=== PATIENT | female | born 1940 | race Caucasian/White ===

== ENCOUNTER → 2023-07-30 14:48 | Outpatient (REF) | payer MEDICARE, SELFPAY ==
[2023-07-30 16:10] LABS: Blood Urea Nitrogen 42 mg/dl (7-17); Calcium 9.4 mg/dl (8.4-10.2); Carbon Dioxide 26 mmol/L (22-30); Chloride 99 mmol/L (98-107); Glomerular Filtration Rate 39.2; Glucose 91 mg/dl (70-99); Potassium 3.9 mmol/L (3.5-5.1); Sodium 137 mmol/L (135-145)
== END ==
LOC: OLAB 14:48
PROVIDERS: FAMILY PHYSICIAN Family Medicine
DX: N17.9 Acute kidney failure, unspecified (principal)
CPT/HCPCS: 80048

== ENCOUNTER 2023-08-26 08:31 | Outpatient (RCR) | payer MEDICARE, SELFPAY | END 2023-08-26 23:59 | disposition home or self-care (01) | LOC: RPT 08:31 | PROVIDERS: ATTENDING PHYSICIAN Family Medicine | DX: L03.116 Cellulitis of left lower limb (principal); I50.23 Acute on chronic systolic (congestive) heart failure; Z73.6 Limitation of activities due to disability; I89.0 Lymphedema, not elsewhere classified | CPT/HCPCS: 97163; 97535 ==

== ENCOUNTER → 2023-09-13 15:19 | Outpatient (REF) | payer MEDICARE, SELFPAY | LOC: WOUND 15:19 | PROVIDERS: ATTENDING PHYSICIAN Surgery Plastic and Reconstructive Surgery; REFERRING PHYSICIAN Family Medicine | DX: I87.2 Venous insufficiency (chronic) (peripheral) (principal); L97.222 Non-pressure chronic ulcer of left calf with fat layer exposed; Z79.01 Long term (current) use of anticoagulants; I48.20 Chronic atrial fibrillation, unspecified; I73.9 Peripheral vascular disease, unspecified; Z95.0 Presence of cardiac pacemaker; I48.11 Longstanding persistent atrial fibrillation; I44.2 Atrioventricular block, complete; Z86.73 Personal history of transient ischemic attack (TIA), and cerebral infarction without residual deficits; I50.32 Chronic diastolic (congestive) heart failure; I63.419 Cerebral infarction due to embolism of unspecified middle cerebral artery; I11.0 Hypertensive heart disease with heart failure | CPT/HCPCS: 29580; 99213 ==

== ENCOUNTER → 2023-10-17 14:52 | Outpatient (REF) | payer MEDICARE, SELFPAY | LOC: WOUND 14:52 | PROVIDERS: ATTENDING PHYSICIAN Surgery; REFERRING PHYSICIAN Family Medicine | DX: L97.222 Non-pressure chronic ulcer of left calf with fat layer exposed (principal); I48.20 Chronic atrial fibrillation, unspecified; I87.2 Venous insufficiency (chronic) (peripheral); I73.9 Peripheral vascular disease, unspecified; Z95.0 Presence of cardiac pacemaker; I10 Essential (primary) hypertension; I48.11 Longstanding persistent atrial fibrillation; I44.2 Atrioventricular block, complete; I50.32 Chronic diastolic (congestive) heart failure; I63.419 Cerebral infarction due to embolism of unspecified middle cerebral artery; Z79.01 Long term (current) use of anticoagulants; Z86.73 Personal history of transient ischemic attack (TIA), and cerebral infarction without residual deficits | CPT/HCPCS: 11042 ==

== ENCOUNTER → 2023-10-31 09:52 | Outpatient (REF) | payer MEDICARE, SELFPAY | LOC: WOUND 09:52 | PROVIDERS: ATTENDING PHYSICIAN Surgery; FAMILY PHYSICIAN Family Medicine | DX: L97.222 Non-pressure chronic ulcer of left calf with fat layer exposed (principal); I48.20 Chronic atrial fibrillation, unspecified; I87.2 Venous insufficiency (chronic) (peripheral); I73.9 Peripheral vascular disease, unspecified; Z95.0 Presence of cardiac pacemaker; I48.11 Longstanding persistent atrial fibrillation; I44.2 Atrioventricular block, complete; Z86.73 Personal history of transient ischemic attack (TIA), and cerebral infarction without residual deficits; I50.32 Chronic diastolic (congestive) heart failure; Z79.01 Long term (current) use of anticoagulants; I11.0 Hypertensive heart disease with heart failure | CPT/HCPCS: 99212 ==

== ENCOUNTER → 2023-11-04 09:21 | Outpatient (REF) | payer MEDICARE, SELFPAY ==
[2023-11-04 11:15] LABS: Blood Urea Nitrogen 27 mg/dl (7-17); Calcium 9.5 mg/dl (8.4-10.2); Carbon Dioxide 27 mmol/L (22-30); Chloride 98 mmol/L (98-107); Glucose 129 mg/dl (70-99); Potassium 4.3 mmol/L (3.5-5.1); Sodium 135 mmol/L (135-145)
== END ==
LOC: REG 09:21
PROVIDERS: ATTENDING PHYSICIAN Nurse Practitioner; FAMILY PHYSICIAN Family Medicine
DX: I50.22 Chronic systolic (congestive) heart failure (principal)
CPT/HCPCS: 36415; 80048

== ENCOUNTER → 2023-12-16 07:42 | Outpatient (REF) | payer MEDICARE, SELFPAY ==
[2023-12-16 09:19] LABS: % Basophils 1.2 % (0-2); % Eosinophils 3.2 % (0-6); % Immature Granulocytes 0.4 % (0-0.5); % Lymphocytes 14.7 % (20.5-51.1); % Monocytes 10.8 % (1.7-9.3); % Neutrophils 69.7 % (42.2-75.2); Absolute Basophils 0.1 10^3/uL (0-0.2); Absolute Eosinophils 0.2 10^3/uL (0-0.7); Absolute Lymphocytes 0.7 10^3/uL (1.2-3.4); Absolute Monocytes 0.5 10^3/uL (0.1-0.6); Absolute Neutrophils 3.5 10^3/uL (1.4-6.5); Hemoglobin 10.9 g/dL (12.0-16.0); Mean Corp Hgb Conc. 31.1 g/dL (33.0-37.0); Mean Corpuscular Hgb 31.3 pg (27.0-31.0); Mean Corpuscular Volume 100.6 fL (81.0-99.0); Mean Platelet Volume 10.1 fL (7.4-10.4); Nucleated Red Blood Cells % 0 %; Platelet Count 208 10^3/uL (130-400); Red Blood Cell Count 3.48 10^6/uL (4.20-5.40); Red Cell Dist. Width 15.7 % (11.5-14.5)
[2023-12-16 10:54] LABS: Glycohemoglobin (HgbA1c) 5.9 % (4.0-5.6)
[2023-12-16 12:45] LABS: Free T4 1.11 ng/dl (0.78-2.19)
[2023-12-16 13:34] LABS: Folate > 20.0 ng/ml (2.76-20); Vitamin B12 673 pg/ml (239-931)
[2023-12-16 15:19] LABS: ALT (SGPT) 20 U/L (0-35); AST (SGOT) 29 U/L (14-36); Albumin 4.5 g/dl (3.5-5.0); Alkaline Phosphatase 49 U/L (38-126); Blood Urea Nitrogen 36 mg/dl (7-17); Calcium 10.2 mg/dl (8.4-10.2); Carbon Dioxide 23 mmol/L (22-30); Chloride 105 mmol/L (98-107); Glucose 89 mg/dl (70-99); HDL Cholesterol 79 mg/dl; Iron 125 ug/dl (37-170); LDL Cholesterol, Calculated 60 mg/dl; Sodium 137 mmol/L (135-145); Total Bilirubin 1.7 mg/dl (0.2-1.3); Total Cholesterol 155 mg/dl (50-199); Total Protein 7.4 g/dl (6.3-8.2); Triglyceride 81 mg/dl (10-149); Very Low Density Lipoprotein 16 mg/dl (0-30); eGFR 49.86
[2023-12-16 15:29] LABS: Percent Saturation 32 % (20-50); Total Iron Binding Capacity 385 ug/dl (265-497)
[2023-12-16 15:38] LABS: Potassium 4.6 mmol/L (3.5-5.1)
== END ==
LOC: REG 07:42
PROVIDERS: ATTENDING PHYSICIAN Family Medicine; FAMILY PHYSICIAN Internal Medicine Cardiovascular Disease
DX: R73.03 Prediabetes (principal); E78.00 Pure hypercholesterolemia, unspecified; E53.8 Deficiency of other specified B group vitamins; D53.9 Nutritional anemia, unspecified; D50.9 Iron deficiency anemia, unspecified; E55.9 Vitamin D deficiency, unspecified; E03.9 Hypothyroidism, unspecified
CPT/HCPCS: 36415; 80053; 80061; 82306; 82607; 82728; 82746; 83036; 83540; 83550; 84439; 84443; 85025

== ENCOUNTER → 2024-01-02 07:39 | Outpatient (REF) | payer MEDICARE, SELFPAY ==
[2024-01-02 10:02] LABS: Blood Urea Nitrogen 40 mg/dl (7-17); Calcium 9.5 mg/dl (8.4-10.2); Carbon Dioxide 25 mmol/L (22-30); Chloride 102 mmol/L (98-107); Glucose 81 mg/dl (70-99); Sodium 136 mmol/L (135-145); eGFR 49.86
== END ==
LOC: REG 07:39
PROVIDERS: ATTENDING PHYSICIAN Internal Medicine Cardiovascular Disease; FAMILY PHYSICIAN Family Medicine
DX: I50.20 Unspecified systolic (congestive) heart failure (principal)
CPT/HCPCS: 36415; 80048

== ENCOUNTER → 2024-01-19 09:20 | Outpatient (REF) | payer MEDICARE, SELFPAY ==
[2024-01-19 10:42] LABS: % Basophils 0.6 % (0-2); % Eosinophils 1.9 % (0-6); % Immature Granulocytes 0.2 % (0-0.5); % Lymphocytes 12.4 % (20.5-51.1); % Monocytes 13.2 % (1.7-9.3); % Neutrophils 71.7 % (42.2-75.2); Absolute Eosinophils 0.1 10^3/uL (0-0.7); Absolute Lymphocytes 0.7 10^3/uL (1.2-3.4); Absolute Monocytes 0.7 10^3/uL (0.1-0.6); Absolute Neutrophils 3.9 10^3/uL (1.4-6.5); Hemoglobin 10.6 g/dL (12.0-16.0); Mean Corp Hgb Conc. 32.1 g/dL (33.0-37.0); Mean Corpuscular Hgb 33.2 pg (27.0-31.0); Mean Corpuscular Volume 103.4 fL (81.0-99.0); Mean Platelet Volume 9.9 fL (7.4-10.4); Nucleated Red Blood Cells % 0 %; Platelet Count 184 10^3/uL (130-400); Red Blood Cell Count 3.19 10^6/uL (4.20-5.40); Red Cell Dist. Width 14.6 % (11.5-14.5); White Blood Cell Count 5.4 10^3/uL (4.8-10.8)
[2024-01-19 11:46] LABS: ALT (SGPT) 20 U/L (0-35); AST (SGOT) 35 U/L (14-36); Albumin 4.1 g/dl (3.5-5.0); Alkaline Phosphatase 42 U/L (38-126); Blood Urea Nitrogen 40 mg/dl (7-17); Calcium 9.6 mg/dl (8.4-10.2); Carbon Dioxide 28 mmol/L (22-30); Chloride 99 mmol/L (98-107); Glucose 75 mg/dl (70-99); Potassium 4.1 mmol/L (3.5-5.1); Sodium 137 mmol/L (135-145); Total Protein 6.7 g/dl (6.3-8.2)
== END ==
LOC: REG 09:20
PROVIDERS: ATTENDING PHYSICIAN Internal Medicine Cardiovascular Disease; FAMILY PHYSICIAN Family Medicine
DX: I50.20 Unspecified systolic (congestive) heart failure (principal); Z95.0 Presence of cardiac pacemaker; I48.0 Paroxysmal atrial fibrillation; I44.2 Atrioventricular block, complete
CPT/HCPCS: 36415; 80053; 85025

== ENCOUNTER 2024-02-10 05:58 | Day surgery (SDC) | payer MEDICARE, SELFPAY ==
[2024-01-31 10:23] VITALS: BMI 24.9
[2024-01-31 10:44] LABS: % Basophils 0.9 % (0-2); % Eosinophils 2.5 % (0-6); % Immature Granulocytes 0.2 % (0-0.5); % Lymphocytes 12.6 % (20.5-51.1); % Monocytes 14.5 % (1.7-9.3); % Neutrophils 69.3 % (42.2-75.2); Absolute Basophils 0.1 10^3/uL (0-0.2); Absolute Eosinophils 0.1 10^3/uL (0-0.7); Absolute Lymphocytes 0.7 10^3/uL (1.2-3.4); Absolute Monocytes 0.8 10^3/uL (0.1-0.6); Absolute Neutrophils 3.7 10^3/uL (1.4-6.5); Hematocrit 31.7 % (37.0-47.0); Hemoglobin 10.5 g/dL (12.0-16.0); Mean Corp Hgb Conc. 33.1 g/dL (33.0-37.0); Mean Corpuscular Hgb 32.7 pg (27.0-31.0); Mean Corpuscular Volume 98.8 fL (81.0-99.0); Mean Platelet Volume 9.4 fL (7.4-10.4); Nucleated Red Blood Cells % 0 %; Platelet Count 211 10^3/uL (130-400); Red Blood Cell Count 3.21 10^6/uL (4.20-5.40); White Blood Cell Count 5.3 10^3/uL (4.8-10.8)
[2024-01-31 10:55] LABS: ALT (SGPT) 21 U/L (0-35); AST (SGOT) 29 U/L (14-36); Albumin 4.3 g/dl (3.5-5.0); Alkaline Phosphatase 65 U/L (38-126); Blood Urea Nitrogen 43 mg/dl (7-17); Calcium 9.4 mg/dl (8.4-10.2); Carbon Dioxide 29 mmol/L (22-30); Chloride 101 mmol/L (98-107); Estimated Creatinine Clearance 28 ml/min; Glucose 81 mg/dl (70-99); Potassium 4.1 mmol/L (3.5-5.1); Sodium 139 mmol/L (135-145); Total Bilirubin 0.7 mg/dl (0.2-1.3); Total Protein 7.4 g/dl (6.3-8.2); eGFR 49.86
[2024-02-10] VITALS (10 sets, daily range): BP systolic 101–134; BP diastolic 57–71
--- NOTE | 2024-02-10 10:34 | ITS.CL.PACE ---
Addendum entered and electronically signed by Yvan Orozco MD 02/10/24 11:17:
Date of Procedure: February 10, 2024.
Original Note:
Cement Sack Breaker - Pacemaker Implant
Pacemaker Implant
Procedure Report:
Date of Procedure: [ ].
Procedures: Dual chamber pacemaker generator change. Pacemaker pulse generator explantation and pacemaker pulse generator implantation.
Indication: Pacemaker at [facility] from natural battery depletion. 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 Known paroxysmal atrial fibrillation.
Performing physician: Yvan Orozco MD, [facility].
Implant: Pacemaker Pulse Generator: Medtronic; Model# [id number]; Serial# [id number].
Explanted Pulse Generator (implanted August 03, 2016: Medtronic; Model# [id number]; Serial# [id number].
Retained Leads (Implanted 06/27/2007 in [place]):
RA : Medtronic: Model# 5076; Serial# [id number].
RV: Medtronic; Model# 5076; Serial# [id number].
Technique: A time out was performed. The procedure site was identified. The patient was anesthetized by the anesthesia service. Preoperative cefazolin was administered prior to skin incision. The patient was prepped and draped in the usual fashion.
Local anesthetic was applied to the left prepectoral subcutaneous tissue. A 3 inch incision was made over the pulse generator. The capsule was entered with Bovie cautery. The old pacemaker pulse generator was explanted. Gentle PlasmaBlade cautery
was applied to free the leads. The leads were appropriately attached to the new device. The pocket was irrigated with antibiotic solution. Hemostasis was excellent. The device and leads were placed in the pocket. The incision was closed in three
layers with absorbable suture. A Medtronic, Tyrx, Absorbable antibiotic envelope was used. Steri-strips and medical adhesive to close the skin was applied. The estimated blood loss was less than 2 mL. There were no complications. No fluoroscopy.
Lead Analysis:
RA lead: Sinus P: 1.6 mV; Threshold: 0.75 V @ 0.4 ms; Impedance: 323 ohms.
RV lead: R: n/a; Threshold: 1.25 V @ 0.4 ms; Impedance: 380 ohms.
Final Programming: DDIR 70 - 130 bpm.
Conclusion: Uncomplicated Medtronic pacemaker change. The pacemaker system is MRI conditional.
Recommendation: Routine post pacemaker care.
cc: Yanet Carmichael MD.
== END 2024-02-10 11:35 | disposition home or self-care (01) ==
LOC: CATH 05:58
PROVIDERS: ATTENDING PHYSICIAN Internal Medicine Cardiovascular Disease; FAMILY PHYSICIAN Family Medicine
DX: Z45.010 Encounter for checking and testing of cardiac pacemaker pulse generator [battery] (principal); I44.2 Atrioventricular block, complete; I48.0 Paroxysmal atrial fibrillation; I11.0 Hypertensive heart disease with heart failure; I50.22 Chronic systolic (congestive) heart failure; E78.5 Hyperlipidemia, unspecified; E03.9 Hypothyroidism, unspecified; Z86.73 Personal history of transient ischemic attack (TIA), and cerebral infarction without residual deficits; R73.03 Prediabetes; I34.0 Nonrheumatic mitral (valve) insufficiency; I27.20 Pulmonary hypertension, unspecified; Z87.891 Personal history of nicotine dependence; Z79.01 Long term (current) use of anticoagulants
CPT/HCPCS: 33228; 36415; 80053; 85025; C1785

== ENCOUNTER 2024-03-08 16:52 | Emergency (ER) | payer MEDICARE, SELFPAY ==
[2024-03-08 16:54] VITALS: BP 117/68
[2024-03-08 17:06] LABS: % Basophils 0.9 % (0-2); % Eosinophils 2.1 % (0-6); % Immature Granulocytes 0.5 % (0-0.5); % Lymphocytes 16.6 % (20.5-51.1); % Monocytes 15.9 % (1.7-9.3); Absolute Eosinophils 0.1 10^3/uL (0-0.7); Absolute Lymphocytes 0.7 10^3/uL (1.2-3.4); Absolute Monocytes 0.7 10^3/uL (0.1-0.6); Absolute Neutrophils 2.8 10^3/uL (1.4-6.5); Hematocrit 27.2 % (37.0-47.0); Hemoglobin 9.6 g/dL (12.0-16.0); Mean Corp Hgb Conc. 35.3 g/dL (33.0-37.0); Mean Corpuscular Hgb 32.7 pg (27.0-31.0); Mean Corpuscular Volume 92.5 fL (81.0-99.0); Mean Platelet Volume 9.6 fL (7.4-10.4); Nucleated Red Blood Cells % 0 %; Platelet Count 175 10^3/uL (130-400); Red Blood Cell Count 2.94 10^6/uL (4.20-5.40); Red Cell Dist. Width 14.1 % (11.5-14.5); White Blood Cell Count 4.3 10^3/uL (4.8-10.8)
[2024-03-08 17:29] LABS: ALT (SGPT) 20 U/L (0-35); AST (SGOT) 28 U/L (14-36); Albumin 4.3 g/dl (3.5-5.0); Alkaline Phosphatase 42 U/L (38-126); Blood Urea Nitrogen 60 mg/dl (7-17); Calcium 9.7 mg/dl (8.4-10.2); Carbon Dioxide 22 mmol/L (22-30); Chloride 99 mmol/L (98-107); Glucose 95 mg/dl (70-99); Potassium 4.2 mmol/L (3.5-5.1); Sodium 132 mmol/L (135-145); Total Bilirubin 1.2 mg/dl (0.2-1.3)
[2024-03-08 17:30] LABS: Lipase 47 U/L (23-300)
--- NOTE | 2024-03-08 18:09 | ED.GENMED ---
History of Present Illness
General
Chief Complaint: Abdominal Symptoms
Source: patient and family (Daughter)
Exam Limitations: none
Time Seen by Provider: 03/08/24 17:54
History of Present Illness
History of Present Illness:
This is a 83 year old female that is brought in by family with c/o diarrhea and constipation. Patient states that for the past 3 days she has gone between constipation and diarrhea. States that she has abd discomfort. Daughter states that she has
kind of been out of it today. States that they called the PCP office and tried to get her to talk with the Nurse their and she wasn't really talking with them. Patient denies any fever, chill, chest pain, SOB, nausea, vomiting, headache, dizziness,
urinary burning.
Past History
Past History
ED Past Medical History: Arrthythmia (Atrial fibrillation), CAD, CHF, CVA (2006, 2016, 2019), HTN, Hypercholesterolemia, [place], Hypothyroidism, Psychiatric (Depression), Other (Right kidney infarction, vitamin D deficiency, osteopenia, Hemorrhoids,
Colitis, Anemia, ) and Other (Vertigo, iron deficiency anemia); Negative NIDDM (Prediabetes)
ED Past Surgical History: Cardiac (Pacemaker, CABG), Gynecological ( Hysterectomy and Oophorectomy one side), Orthopedic (left hip fracture with repair) and Other (hernia repair)
Social History
Tobacco: Former smoker
Alcohol: Daily
Drug: None
Personal:
Living: with family
Employment: Retired
Family History
Family History: Other (Reviewed and Noncontributory)
Review of Systems
Review of Systems
All Other Systems: ROS reviewed and negative except as documented in HPI and ROS
Constitutional: Reports no symptoms; Denies fever or chills
EENT: Reports no symptoms
Respiratory: Reports no symptoms; Denies cough or trouble breathing
Cardiac: Reports no symptoms; Denies chest pain
ABD/GI: Reports abdominal pain, diarrhea and constipated; Denies nausea or vomiting
: Reports no symptoms; Denies dysuria, frequency or urgency
Musculoskeletal: Reports no symptoms
Skin: Reports no symptoms
Neurological: Reports no symptoms; Denies dizzy or headache
Psychiatric: Reports no symptoms
Phy Exam
General Physical Exam
General Presentation: no apparent distress
General age: appears stated age
General Skin: warm and dry
General Habitus: debilitated and elderly
General Mental: alert
General Hydration: dry mucous membranes
ENT Exam
ENT Exam: TM's normal, pharynx normal and neck supple
Eye Exam
Eye Exam: EOMI
Cardiovascular Exam
Cardiovascular Exam: no edema, normal peripheral pulses and pacemaker
Pulmonary Exam
Pulmonary Exam: lungs clear, no respiratory distress, no rales, chest non tender, no crackles, no rhonchi, no wheezing and no cough
Gastrointestinal Exam
Gastrointestinal Exam: normal bowel sounds, non tender, soft, no organomegaly, no pulsatile mass and non distended
Musculoskeletal Exam
Musculoskeletal Exam: full ROM and edema (Slight nonpitting edema of the lower legs)
Skin Exam
Skin Exam: normal color, warm/dry, no petechia and redness (Slight on the left lower leg Patient states that this is normal. )
Psychiatric Exam
Psychiatric Exam: normal mood/affect
Course
Orders/Labs/Results
Orders:
Orders
03/08/24 16:59
Complete Blood Count/With Diff Urgent
Comprehensive Metabolic Panel Urgent
Lipase Urgent
03/08/24 18:08
0.9% Sodium Chloride 1000 ml [Nss] 1,000 ml IV BOLUS
03/08/24 18:12
Electrocardiogram (*1) Urgent
Reason for Study: Fatigue / Weakness
EKG- Treatment ONCE
03/08/24 18:20
CT Abd/pel (oral only)-DH Only Urgent
Comment:
Reason For Exam: ABd pain, diarrhea, constipation
Iohexol [Omnipaque] See Protocol PO NOW STA
03/08/24 18:44
Troponin I Urgent
03/08/24 19:18
Urinalysis Reflex To Culture Urgent
Date Specimen was Collected: 03/08/24
Time Specimen was Collected: 19:17
Urine Microscopic Reflex Cult Urgent
Urine Culture Urgent
KHUSHBOO Source: U
Specimen Description:
Date Specimen was Collected: 03/08/24
Time Specimen was Collected: 19:17
Abnormal Lab Results
03/08/24 03/08/24 03/08/24
16:59 18:44 19:18
WBC 4.3 L 10^3/uL
(4.8-10.8)
RBC 2.94 L 10^6/uL
(4.20-5.40)
Hgb 9.6 L g/dL
(12.0-16.0)
Hct 27.2 L %
(37.0-47.0)
MCH 32.7 H pg
(27.0-31.0)
Absolute Lymphs (auto) 0.7 L 10^3/uL
(1.2-3.4)
Absolute Monos (auto) 0.7 H 10^3/uL
(0.1-0.6)
Lymphocytes % 16.6 L %
(20.5-51.1)
Monocytes % 15.9 H %
(1.7-9.3)
Sodium 132 L mmol/L
(135-145)
BUN 60 H mg/dl
(7-17)
Creatinine 1.6 H mg/dL
(0.6-1.0)
Troponin I 0.067 H* ng/ml
Urine Ketones Trace A
(Negative)
Ur Occult Blood Reflex 4+ A
(Negative)
Leukocyte Esterase Rfl 1+ A
(Negative)
Urine RBC >100 A /HPF
(0-2)
Urine Bacteria (Reflex) Few A
(Negative)
Urine Albumin (Reflex) 1+ A
(Neg - Trace)
03/08/24 16:59
03/08/24 16:59
WBC slightly low. RBC low, H/H low. Anemia, Sodium slightly low. Dehydration. Chronic renal insufficiency. Urine negative for infection. troponin 0.067 (chronically runs high)
Vital Signs
Initial and Last Documented VS:
Initial Vital Signs
Temp Pulse Resp BP Pulse Ox
98.3 F 71 16 117/68 96
03/08/24 16:54 03/08/24 16:54 03/08/24 16:54 03/08/24 16:54 03/08/24 16:54
Last Documented Vital Signs
Temp Pulse Resp BP Pulse Ox
98.3 F 70 18 115/59 96
03/08/24 16:54 03/08/24 20:00 03/08/24 20:00 03/08/24 19:00 03/08/24 16:54
MDM/Problems Addressed
Differential Diagnosis Includes:
UTi, Colitis, Dehydrtion
MDM/Problems Addressed:
this is a 83 year old female that comes in with c/o constipation and diarrhea. States that this has been going on for the past 3 days. Daughter states that mom is just not herself today.
Will check labs, give IV fluids. Get CT to r/o a colitis.
Back into see patient. Family states that patient is more herself after the fluids. Reviewed labs and CT scan. Urine is negative for infection. Troponin is elevated but this is consistent with prior Troponin. Patient had no chest pain. Got patient
OOB and she is able to ambulate with her cane. Will discharge home.
Chronic conditions affecting care:
History of Colitis
Acute Exacerbation and/or Progression of Chronic Illness:
Colitis
*Radiology
Radiology exam reviewed: radiology read reviewed (CT-There is bowel wall thickening and unopacified loops of duodenum and proximal jejunum consistent with small bowel enteritis. There is moderate bilateral perinephric edema without associated
hydronephrosis. Pyeloneprhtiis is included in the differential diagnosis and correlation with patient's ), all reviewed NAD by ED Provider (CT cont- urinalysis is recommended. There is large volume of feces in the rectum suggesting possible fecal
impaction. Diverticuli are present in the colon with no CT evidence of diverticulitis. There is a 10mm nonobstructing calculus at the right renal pelvis. There is a 1cm nonobstructing) and other (CT cont- calculus at the right renal pelvis. There is
a 7cm hiatal hernia. )
*Pulse Oximetry
Patient hypoxic: no
*EKG
Interpreted by ED Provider?: Yes
Heart Rate: 71
Rate: normal
Rhythm: av sequential
[place]: left axis deviation
*Senior Quality Technician Interpretation
Rate: Senior Quality Technician- N/A
*Critical Care Note
Total Time (30-74mins, 75-104mins- exclusive of procedures): Not Applicable
ED Attending Note
-
Portions of this chart may have been created with voice recognition software.� Occasional wrong word or��sound alike� substitutions may have occurred due to the inherent limitations of voice recognition software.
Discharge Plan
Departure
Patient Disposition: Home (Routine Discharge)
Date of Disposition: 03/08/24
Time of Disposition: 22:21
Patient with high blood pressure during this ER visit?: No
Condition: Good
Covid-19: Not Applicable
Discharge Problem:
Acute dehydration, Enteritis
Instructions: Dehydration, Adult (DC)
Prescriptions:
No Action
atorvastatin 40 MG tablet
40 mg PO HS
carvedilol 3.125 MG tablet
3.125 mg PO BID
levothyroxine 75 mcg Tablet
75 mcg PO DAILY
furosemide 40 mg tablet
40 mg PO BID
cholecalciferol (vitamin D3) [Vitamin D3] 25 mcg (1,000 unit) Capsule
25 mcg PO DAILY
ferrous sulfate 325 mg (65 mg iron) Tablet
325 mg PO DAILY
mecobalamin (vitamin B12) [B12 Active] 1,000 mcg Tablet,Chewable
1,000 mcg PO DAILY
dabigatran etexilate [Pradaxa] 150 mg capsule
150 mg PO BID
trazodone 50 mg Tablet
50 mg PO HS PRN (Reason: sleep)
ondansetron HCl 4 mg Tablet
4 mg PO DAILYPRN PRN (Reason: nausea/vomiting)
acetaminophen [Tylenol Extra Strength] 500 mg Tablet
1,000 mg PO Q6H PRN (Reason: mild pain)
docusate sodium 100 mg capsule
100 mg PO BIDPRN PRN (Reason: constipation)
Referrals:
Yanet Carmichael MD [Family Provider] - Follow up in 2-3 days
Activity Restrictions/Additional Instructions:
As discussed, your blood work shows you are anemia and very dehydrated. Please make sure your drink your Fluids that you are allowed. Your Urine is negative for infection but there is blood in the urine due to the Renal calculus in the kidneys. Your
CT does show some enteritis which is a viral illness and this will go away on its own. Please follow up with the family doctor for recheck. IF YOU HAVE FEVER, VOMITING, OR YOU HAVE ANY OTHER CONCERNS PLEASE RETURN TO THE EMERGENCY ROOM.
Interventions
Interventions:
*Risk Screen - Suicide Last Done: 03/08/24 18:04
*General Assessment Last Done: 03/08/24 16:54
*Neglect/Abuse Screening Last Done: 03/08/24 18:04
ED- Fall Risk Assessment Last Done: 03/08/24 18:51
XT-Aluakn-Lxwsorrnxz Assessment Last Done: 03/08/24 18:51
Discharge Date and Time
Print Language: BURMESE
[2024-03-08] MEDS: NSS 1000 IV (18:44)
[2024-03-08] MEDS: OMNIPAQUE 50 ML PO (18:45)
[2024-03-08 19:00] VITALS: BP 115/59
[2024-03-08 19:23] LABS: Troponin I 0.067 ng/ml
[2024-03-08 19:26] LABS: Urine Albumin 1+ (Neg - Trace); Urine Bilirubin Negative (Negative); Urine Character Clear (Clear); Urine Glucose Negative (Negative); Urine Ketone Trace (Negative); Urine Leukocyte 1+ (Negative); Urine Nitrite Negative (Negative); Urine Occult Blood 4+ (Negative); Urine Specific Gravity 1.015 (<1.030); Urine Urobilinogen Negative (Neg - 1+)
[2024-03-08 19:27] LABS: Urine Color Pink
[2024-03-08 19:33] LABS: Urine Red Blood Cell >100 /HPF (0-2)
[2024-03-08 19:34] LABS: Urine Bacteria Few (Negative)
[2024-03-08 22:54] VITALS: BP 112/62
== END 2024-03-08 22:56 | disposition home or self-care (01) ==
LOC: EMR 16:52
PROVIDERS: Clinical Nurse Specialist Family Health; EMERGENCY PHYSICIAN Emergency Medicine; FAMILY PHYSICIAN Family Medicine
DX: E86.0 Dehydration (principal); K52.9 Noninfective gastroenteritis and colitis, unspecified; K59.00 Constipation, unspecified; I48.91 Unspecified atrial fibrillation; I25.10 Atherosclerotic heart disease of native coronary artery without angina pectoris; I13.0 Hypertensive heart and chronic kidney disease with heart failure and stage 1 through stage 4 chronic kidney disease, or unspecified chronic kidney disease; I50.9 Heart failure, unspecified; E11.22 Type 2 diabetes mellitus with diabetic chronic kidney disease; N18.9 Chronic kidney disease, unspecified; E03.9 Hypothyroidism, unspecified; E78.00 Pure hypercholesterolemia, unspecified; F32.A Depression, unspecified; I25.2 Old myocardial infarction; E55.9 Vitamin D deficiency, unspecified; D64.9 Anemia, unspecified; M85.80 Other specified disorders of bone density and structure, unspecified site; Z86.73 Personal history of transient ischemic attack (TIA), and cerebral infarction without residual deficits; Z87.19 Personal history of other diseases of the digestive system; Z87.891 Personal history of nicotine dependence; Z90.710 Acquired absence of both cervix and uterus; Z90.721 Acquired absence of ovaries, unilateral; Z95.0 Presence of cardiac pacemaker; Z95.1 Presence of aortocoronary bypass graft
CPT/HCPCS: 99284; 96361; 74176; 80053; 81003; 81015; 83690; 84484; 85025; 87086; 93005

== ENCOUNTER 2024-08-02 23:35 | Emergency (ER) | payer MEDICARE, SELFPAY ==
[2024-08-02 23:37] VITALS: BP 114/68
[2024-08-02 23:42] VITALS: BMI 24.3
[2024-08-03 00:01] VITALS: BP 90/54
[2024-08-03 00:49] LABS: Urine Albumin 2+ (Neg - Trace); Urine Bilirubin 1+ (Negative); Urine Character Cloudy (Clear); Urine Color Amber; Urine Glucose Negative (Negative); Urine Ketone Trace (Negative); Urine Leukocyte 1+ (Negative); Urine Nitrite Positive (Negative); Urine Occult Blood 4+ (Negative); Urine Urobilinogen Negative (Neg - 1+)
[2024-08-03 00:56] VITALS: BP 103/56
[2024-08-03 01:07] VITALS: BP 96/53
--- NOTE | 2024-08-03 01:20 | ED.GENMED ---
History of Present Illness
General
Chief Complaint: Fall
Source: patient, family and ambulance crew
Exam Limitations: none
Time Seen by Provider: 08/02/24 23:42
Nursing documentation reviewed up to this point in time: agreed with
History of Present Illness
History of Present Illness:
Pleasant 83-year-old female that presents after a fall. She lives with her at home. Patient admits to drinking white wine this evening. Patient does take Pradaxa. Patient was watching football, and her went to bed. He awakened a
short while later to the sound of her calling his name. Patient was found lying on the hardwood floor. She denied any pain. called 911. Upon arrival, patient is awake, alert, and oriented x 3. Patient does have a history of a subdural
hematoma for which she sustained last year. Patient denies headache.
Past History
Past History
ED Past Medical History: Arrthythmia (Atrial fibrillation), CAD, CHF, CVA (2006, 2016, 2019), HTN, Hypercholesterolemia, [place], Hypothyroidism, Psychiatric (Depression), Other (Right kidney infarction, vitamin D deficiency, osteopenia, Hemorrhoids,
Colitis, Anemia, ) and Other (Vertigo, iron deficiency anemia); Negative NIDDM (Prediabetes)
ED Past Surgical History: Cardiac (Pacemaker, CABG), Gynecological ( Hysterectomy and Oophorectomy one side), Orthopedic (left hip fracture with repair) and Other (hernia repair)
Social History
Tobacco: Former smoker
Alcohol: Daily
Drug: None
Personal:
Living: with family
Employment: Retired
Family History
Family History: Other (Reviewed and Noncontributory)
Review of Systems
Review of Systems
All Other Systems: ROS reviewed and negative except as documented in HPI and ROS
Constitutional: Reports no symptoms
EENT: Reports no symptoms
Respiratory: Reports no symptoms
Cardiac: Reports no symptoms
ABD/GI: Reports no symptoms
: Reports no symptoms
Musculoskeletal: Reports no symptoms
Skin: Reports no symptoms
Neurological: Reports no symptoms
Endocrine: Reports no symptoms
Hematologic/Lymphatic: Reports no symptoms
Psychiatric: Reports anxiety
Phy Exam
General Physical Exam
General Presentation: well appearing and no apparent distress
General Skin: warm and dry
General Habitus: normal
General Mental: alert
General Hydration: appears well hydrated
ENT Exam
ENT Exam: EOMI, pharynx normal, neck supple and normocephalic
Eye Exam
Eye Exam: PERRL, cornea clear and conjunctiva normal
Cardiovascular Exam
Cardiovascular Exam: irregularly irregular
Pulmonary Exam
Pulmonary Exam: lungs clear, no respiratory distress, no rales, no crackles, no rhonchi, no stridor, no wheezing and no cough
Gastrointestinal Exam
Gastrointestinal Exam: normal bowel sounds, non tender, soft, no organomegaly, no pulsatile mass and non distended
Neurological Exam
Neurological Exam: alert, oriented x3, no motor deficits and speech normal
Musculoskeletal Exam
Musculoskeletal Exam: full ROM and no edema
Skin Exam
Skin Exam: normal color, warm/dry, no rash and no petechia
Psychiatric Exam
Psychiatric Exam: normal mood/affect
Course
Orders/Labs/Results
Orders:
Orders
08/03/24 00:30
Urinalysis Reflex To Culture Urgent
Date Specimen was Collected: 08/03/24
Time Specimen was Collected: 00:13
Urine Microscopic Reflex Cult Urgent
Urine Culture Urgent
KHUSHBOO Source: U
Specimen Description:
Date Specimen was Collected: 08/03/24
Time Specimen was Collected: 00:13
08/03/24 00:35
CT Cervical Spine W/o Iv Contr Urgent
Reason For Exam: fall
CT Head W/o Iv Contrast Urgent
Reason For Exam: fall
08/03/24 01:27
Fosfomycin [Monurol] 3 gm PO ONCE ONE
Abnormal Lab Results
08/03/24
00:30
Urine Ketones Trace A
(Negative)
Ur Occult Blood Reflex 4+ A
(Negative)
Urine Nitrite (Reflex) Positive A
(Negative)
Urine Bilirubin 1+ A
(Negative)
Leukocyte Esterase Rfl 1+ A
(Negative)
Urine RBC >100 A /HPF
(0-2)
Urine Bacteria (Reflex) Many A
(Negative)
Urine Albumin (Reflex) 2+ A
(Neg - Trace)
Vital Signs
Initial and Last Documented VS:
Initial Vital Signs
Temp Pulse Resp BP Pulse Ox
97.4 F 86 20 114/68 97
08/02/24 23:37 08/02/24 23:37 08/02/24 23:37 08/02/24 23:37 08/02/24 23:37
Last Documented Vital Signs
Temp Pulse Resp BP Pulse Ox
97.4 F 70 12 96/53 95
08/02/24 23:37 08/03/24 01:45 08/03/24 01:45 08/03/24 01:07 08/03/24 01:30
*Radiology
Radiology exam reviewed: radiology read reviewed
*Pulse Oximetry
Patient hypoxic: no
*Critical Care Note
Total Time (30-74mins, 75-104mins- exclusive of procedures): Not Applicable
Update Note
Update Note:
Head:
No evidence for intracranial hemorrhage or calvarial fracture.
Redemonstrated extensive encephalomalacic changes in the right MCA territory and in the inferior right cerebellum.
Cervical spine:
No evidence for acute fracture or traumatic malalignment.
Moderate degenerative changes.
Septal thickening in the lung apices.
ED Attending Note
-
Portions of this chart may have been created with voice recognition software.� Occasional wrong word or��sound alike� substitutions may have occurred due to the inherent limitations of voice recognition software.
Discharge Plan
Departure
Patient Disposition: Home (Routine Discharge)
Date of Disposition: 08/03/24
Time of Disposition: 02:26
Patient with high blood pressure during this ER visit?: No
Condition: Fair
Discharge Problem:
Fall, Urinary tract infection
Instructions: Head Injury in Adults (DC), Preventing falls in adults, Urinary tract infection - Discharge instructions
Prescriptions:
No Action
atorvastatin 40 MG tablet
40 mg PO HS
carvedilol 3.125 MG tablet
3.125 mg PO BID
levothyroxine 75 mcg Tablet
75 mcg PO DAILY
furosemide 40 mg tablet
40 mg PO BID
cholecalciferol (vitamin D3) [Vitamin D3] 25 mcg (1,000 unit) Capsule
25 mcg PO DAILY
ferrous sulfate 325 mg (65 mg iron) Tablet
325 mg PO DAILY
mecobalamin (vitamin B12) [B12 Active] 1,000 mcg Tablet,Chewable
1,000 mcg PO DAILY
dabigatran etexilate [Pradaxa] 150 mg capsule
150 mg PO BID
trazodone 50 mg Tablet
50 mg PO HS PRN (Reason: sleep)
ondansetron HCl 4 mg Tablet
4 mg PO DAILYPRN PRN (Reason: nausea/vomiting)
acetaminophen [Tylenol Extra Strength] 500 mg Tablet
1,000 mg PO Q6H PRN (Reason: mild pain)
docusate sodium 100 mg capsule
100 mg PO BIDPRN PRN (Reason: constipation)
levofloxacin 500 mg tablet
500 mg PO DAILY 5 Days Qty: 5 0RF
Referrals:
Yanet Carmichael MD [Family Provider] -
Activity Restrictions/Additional Instructions:
It was a pleasure meeting you and taking part in your care. We hope for your continued healing and wellness.
Please read discharge instructions in their entirety. However, they are for general education and may not describe your exact diagnosis at discharge. Information on your ER visit and medical conditions were discussed with you along with appropriate
follow up information...
If indicated, please take your medications as instructed and indicated on discharge paperwork.
Please schedule a follow up appointment as directed. Call to schedule an appointment
Please return to the emergency department with ANY change in, persisting, or worsening of symptoms. If any of your symptoms do not improve, or persist, or become more severe within 6-12 hours, please return to the emergency department for further
care.
Please return to the emergency department if you develop a headache, neck pain/stiffness, fever greater than 100.4F, chest pain, shortness of breath, persistent nausea, vomiting, slurred speech, difficulty walking, numbness/tingling, weakness, signs
of infection or any other symptoms that are worrisome to you.
If you have any questions or concerns please do not hesitate to call the Hospital at or E-mail me directly at [email or web address]
Interventions
Interventions:
*Risk Screen - Suicide Last Done: 08/03/24 00:10
*General Assessment Last Done: 08/03/24 00:10
*Neglect/Abuse Screening Last Done: 08/03/24 00:10
*ED COVID-19 Vaccine History Last Done: 08/03/24 00:10
ED-Musculoskeletal Assessment Last Done: 08/03/24 00:46
ED- Neurological Assessment Last Done: 08/03/24 00:46
ED-Skin Assessment Last Done: 08/03/24 00:46
Discharge Date and Time
Print Language: ALB[place]
[2024-08-03 01:33] LABS: Urine Amorphous Seen; Urine Mucus Many; Urine Squamous Cell >30 /LPF (Few)
[2024-08-03 01:34] LABS: Urine Bacteria Many (Negative); Urine Red Blood Cell >100 /HPF (0-2)
[2024-08-03 01:46] VITALS: BP 101/49
[2024-08-03] MEDS: MONUROL 3 GM PO (02:09)
[2024-08-03 02:13] VITALS: BP 114/60
== END 2024-08-03 02:49 | disposition home or self-care (01) ==
LOC: EMR 23:35
PROVIDERS: EMERGENCY PHYSICIAN Student in an Organized Health Care Education/Training Program; FAMILY PHYSICIAN Family Medicine
DX: N39.0 Urinary tract infection, site not specified (principal); W19.XXXA Unspecified fall, initial encounter; I48.91 Unspecified atrial fibrillation; I25.10 Atherosclerotic heart disease of native coronary artery without angina pectoris; I11.0 Hypertensive heart disease with heart failure; I50.9 Heart failure, unspecified; I25.2 Old myocardial infarction; E03.9 Hypothyroidism, unspecified; E78.00 Pure hypercholesterolemia, unspecified; F32.A Depression, unspecified; M47.812 Spondylosis without myelopathy or radiculopathy, cervical region; Z86.73 Personal history of transient ischemic attack (TIA), and cerebral infarction without residual deficits; Z87.19 Personal history of other diseases of the digestive system; Z87.891 Personal history of nicotine dependence; Z90.710 Acquired absence of both cervix and uterus; Z90.721 Acquired absence of ovaries, unilateral; Z95.0 Presence of cardiac pacemaker; Z95.1 Presence of aortocoronary bypass graft
CPT/HCPCS: 99284; 70450; 72125; 81003; 81015; 87086

== ENCOUNTER 2024-08-19 14:58 | Emergency (ER) | payer MEDICARE, SELFPAY ==
[2024-08-19 15:06] VITALS: BP 139/79
[2024-08-19 15:31] LABS: % Basophils 0.7 % (0-2); % Eosinophils 1.1 % (0-6); % Immature Granulocytes 0.3 % (0-0.5); % Lymphocytes 9.2 % (20.5-51.1); % Monocytes 12.5 % (1.7-9.3); % Neutrophils 76.2 % (42.2-75.2); Absolute Basophils 0.1 10^3/uL (0-0.2); Absolute Eosinophils 0.1 10^3/uL (0-0.7); Absolute Lymphocytes 0.6 10^3/uL (1.2-3.4); Absolute Monocytes 0.9 10^3/uL (0.1-0.6); Absolute Neutrophils 5.3 10^3/uL (1.4-6.5); Hematocrit 30.6 % (37.0-47.0); Hemoglobin 10.2 g/dL (12.0-16.0); Mean Corp Hgb Conc. 33.3 g/dL (33.0-37.0); Mean Corpuscular Hgb 32.5 pg (27.0-31.0); Mean Corpuscular Volume 97.5 fL (81.0-99.0); Mean Platelet Volume 9.5 fL (7.4-10.4); Nucleated Red Blood Cells % 0 %; Platelet Count 222 10^3/uL (130-400); Red Blood Cell Count 3.14 10^6/uL (4.20-5.40); Red Cell Dist. Width 14.3 % (11.5-14.5)
[2024-08-19 15:50] LABS: ALT (SGPT) 15 U/L (0-35); AST (SGOT) 24 U/L (14-36); Albumin 4.1 g/dl (3.5-5.0); Alkaline Phosphatase 32 U/L (38-126); Blood Urea Nitrogen 32 mg/dl (7-17); Carbon Dioxide 23 mmol/L (22-30); Chloride 102 mmol/L (98-107); Glucose 112 mg/dl (70-99); Potassium 4.5 mmol/L (3.5-5.1); Sodium 137 mmol/L (135-145); Total Bilirubin 0.8 mg/dl (0.2-1.3); Total Protein 6.6 g/dl (6.3-8.2); eGFR 49.86
[2024-08-19 17:54] VITALS: BP 140/79
[2024-08-19 18:00] VITALS: BP 140/81
--- NOTE | 2024-08-19 18:10 | ED.GENMED ---
History of Present Illness
General
Chief Complaint: Abdominal Pain
Source: patient
Exam Limitations: none
Time Seen by Provider: 08/19/24 18:01
History of Present Illness
History of Present Illness:
83-year-old female presents with 1 weeks worth of diarrhea. She states she going several times an hour. She notes watery stool. Occasionally has red blood in the stool. She notes intermittent abdominal pain but denies fevers or chills. She has
a history of A-fib on Pradaxa, CHF on Lasix. She also has a remote history of C. difficile. No recent antibiotic use. She has been in and out of the hospital frequently. She has a history of strokes. She initially saw the family doctor after
trying Imodium for couple days without helping. She was prescribed dicyclomine without significant relief. No other complaints at this time
Past History
Past History
ED Past Medical History: Arrthythmia (Atrial fibrillation), CAD, CHF, CVA (2006, 2016, 2019), HTN, Hypercholesterolemia, [place], Hypothyroidism, Psychiatric (Depression), Other (Right kidney infarction, vitamin D deficiency, osteopenia, Hemorrhoids,
Colitis, Anemia, ) and Other (Vertigo, iron deficiency anemia); Negative NIDDM (Prediabetes)
ED Past Surgical History: Cardiac (Pacemaker, CABG), Gynecological ( Hysterectomy and Oophorectomy one side), Orthopedic (left hip fracture with repair) and Other (hernia repair)
Social History
Tobacco: Former smoker
Alcohol: Daily
Drug: None
Personal:
Living: with family
Employment: Retired
Family History
Family History: Other (Reviewed and Noncontributory)
Phy Exam
Physical Exam
Physical Exam:
General: Well-appearing female no acute respiratory distress
HEENT: Normocephalic atraumatic
Heart: Regular rate and rhythm no murmurs lungs: Clear no wheeze
Abdomen is soft tender to the right mid abdomen no guarding rebound normal bowel sounds extremities: No cyanosis
Mild edema
Skin warm no rash
Course
Orders/Labs/Results
Orders:
Orders
08/19/24 15:21
CMP [Comprehensive Metabolic Panel] Urgent
Complete Blood Count/With Diff Urgent
08/19/24 18:09
CT Abd/pelvis W Iv Cont Urgent
Comment:
Reason For Exam: abdominal pain, diarrhea
0.9% Sodium Chloride 500 ml [Nss] 500 ml IV BOLUS
08/19/24 20:14
STOOL [C difficile Antigen & Toxins] Urgent
KHUSHBOO Source: Feces/Stool
Specimen Description:
Date Specimen was Collected: 08/19/24
Time Specimen was Collected: 20:11
Stool Culture Urgent
KHUSHBOO Source: Feces/Stool
Specimen Description:
Date Specimen was Collected: 08/19/24
Time Specimen was Collected: 20:11
08/19/24 21:04
Enema- Treatment ONCE
Type: Milk of Molasses
Abnormal Lab Results
08/19/24
15:21
RBC 3.14 L 10^6/uL
(4.20-5.40)
Hgb 10.2 L g/dL
(12.0-16.0)
Hct 30.6 L %
(37.0-47.0)
MCH 32.5 H pg
(27.0-31.0)
Absolute Lymphs (auto) 0.6 L 10^3/uL
(1.2-3.4)
Absolute Monos (auto) 0.9 H 10^3/uL
(0.1-0.6)
Neutrophils % 76.2 H %
(42.2-75.2)
Lymphocytes % 9.2 L %
(20.5-51.1)
Monocytes % 12.5 H %
(1.7-9.3)
BUN 32 H mg/dl
(7-17)
Creatinine 1.1 H mg/dL
(0.6-1.0)
Glucose 112 H mg/dl
(70-99)
Alkaline Phosphatase 32 L U/L
(38-126)
08/19/24 15:21
08/19/24 15:21
Vital Signs
Initial and Last Documented VS:
Initial Vital Signs
Temp Pulse Resp BP Pulse Ox
98.0 F 72 16 139/79 99
08/19/24 15:06 08/19/24 15:06 08/19/24 15:06 08/19/24 15:06 08/19/24 15:06
Last Documented Vital Signs
Temp Pulse Resp BP Pulse Ox
98.0 F 72 16 133/81 93
08/19/24 15:06 08/19/24 15:06 08/19/24 15:06 08/19/24 19:22 08/19/24 19:23
MDM/Problems Addressed
Differential Diagnosis Includes:
Abdominal pain and diarrhea. Question colitis versus viral illness versus electrolyte abnormality. Will order stool cultures if patient able to provide sample. Check labs hydration ordered. She is slightly tender on exam. CT pending
*Critical Care Note
Total Time (30-74mins, 75-104mins- exclusive of procedures): Not Applicable
Update Note
Update Note:
CT reviewed and demonstrates large amount of stool throughout the colon. Radiologist cannot exclude sterile coral colitis based on the imaging. I relayed this information to the patient and her who was in the room. I did attempt to
manually disimpact any stool however any stool in the rectum was out of reach of the manual disimpaction. Recommended milk of molasses enema. Patient declined this. Reexamined the patient and expressed the concern for potential stercoral colitis
and the potential for perforation sepsis or even as a result of complications from this. She understood this. She wishes to try to manage her constipation at home. I advise she stop the Bentyl and Imodium and recommend stool softeners. She
was also sent home with magnesium citrate. Return precautions were given
ED Attending Note
-
Portions of this chart may have been created with voice recognition software.� Occasional wrong word or��sound alike� substitutions may have occurred due to the inherent limitations of voice recognition software.
Discharge Plan
Departure
Patient Disposition: Home (Routine Discharge)
Date of Disposition: 08/19/24
Time of Disposition: 22:32
Patient with high blood pressure during this ER visit?: No
Discharge Problem:
Constipation
Instructions: Constipation, Adult (DC)
Prescriptions:
No Action
atorvastatin 40 MG tablet
40 mg PO HS
carvedilol 3.125 MG tablet
3.125 mg PO BID
levothyroxine 75 mcg Tablet
75 mcg PO DAILY
furosemide 40 mg tablet
40 mg PO BID
cholecalciferol (vitamin D3) [Vitamin D3] 25 mcg (1,000 unit) Capsule
25 mcg PO DAILY
ferrous sulfate 325 mg (65 mg iron) Tablet
325 mg PO DAILY
mecobalamin (vitamin B12) [B12 Active] 1,000 mcg Tablet,Chewable
1,000 mcg PO DAILY
dabigatran etexilate [Pradaxa] 150 mg capsule
150 mg PO BID
trazodone 50 mg Tablet
50 mg PO HS PRN (Reason: sleep)
ondansetron HCl 4 mg Tablet
4 mg PO DAILYPRN PRN (Reason: nausea/vomiting)
acetaminophen [Tylenol Extra Strength] 500 mg Tablet
1,000 mg PO Q6H PRN (Reason: mild pain)
docusate sodium 100 mg capsule
100 mg PO BIDPRN PRN (Reason: constipation)
levofloxacin 500 mg tablet
500 mg PO DAILY 5 Days Qty: 5 0RF
Referrals:
Yanet Carmichael MD [Family Provider] -
Activity Restrictions/Additional Instructions:
Stop dicyclomine and Imodium. Use Colace or MiraLAX as well as magnesium citrate as directed. As discussed, findings on CAT scan today could not exclude stercoral colitis. This is inflammation of the bowel wall secondary to constipation. Risk of
this are perforation of the bowel wall sepsis . Please return here for any worsening symptoms including increased pain fever vomiting or other concerning findings.
Interventions
Interventions:
*Risk Screen - Suicide Last Done: 08/19/24 19:17
*General Assessment Last Done: 08/19/24 19:17
ED- Fall Risk Assessment Last Done: 08/19/24 19:17
*ED COVID-19 Vaccine History Last Done: 08/19/24 19:17
UX-Vemtam-Srwvcwraom Assessment Last Done: 08/19/24 19:17
Discharge Date and Time
Print Language: LAO
[2024-08-19] MEDS: NSS 500 IV (18:25)
[2024-08-19 19:17] VITALS: BMI 23.9
[2024-08-19 19:22] VITALS: BP 133/81
[2024-08-19 22:47] VITALS: BP 143/108
[2024-08-19 22:49] VITALS: BP 144/79
[2024-08-19] MEDS: CITROMA 300 ML PO (23:26)
== END 2024-08-20 00:02 | disposition home or self-care (01) ==
LOC: EMR 14:58
PROVIDERS: Emergency Medicine; EMERGENCY PHYSICIAN Student in an Organized Health Care Education/Training Program; FAMILY PHYSICIAN Family Medicine
DX: K59.00 Constipation, unspecified (principal); E03.9 Hypothyroidism, unspecified; E78.00 Pure hypercholesterolemia, unspecified; I11.0 Hypertensive heart disease with heart failure; I50.9 Heart failure, unspecified; I25.10 Atherosclerotic heart disease of native coronary artery without angina pectoris; I48.91 Unspecified atrial fibrillation; Z79.01 Long term (current) use of anticoagulants; Z87.891 Personal history of nicotine dependence; Z90.710 Acquired absence of both cervix and uterus; Z95.0 Presence of cardiac pacemaker; Z95.1 Presence of aortocoronary bypass graft; Z86.73 Personal history of transient ischemic attack (TIA), and cerebral infarction without residual deficits
CPT/HCPCS: 96360; 99284; 74177; 80053; 85025; 87045; 87046; 87324; 87427; 87449; Q9967

== ENCOUNTER 2024-08-24 09:46 | Emergency (ER) | payer MEDICARE, SELFPAY ==
[2024-08-24] VITALS (7 sets, daily range): BP systolic 111–130; BP diastolic 67–77; BMI 24.2
--- NOTE | 2024-08-24 10:57 | ED.GENMED ---
History of Present Illness
General
Chief Complaint: Bowel Problem
Source: patient and records
Time Seen by Provider: 08/24/24 10:42
History of Present Illness
History of Present Illness:
84yoF with a history of atrial fibrillation on Pradaxa, CHF, hypertension, hyperlipidemia, and prior CVA presenting with her for evaluation of constipation. Patient was seen in the ED on 08/19/[address] abdomen showed 'prominent
widespread colonic stool especially in the sigmoid colon and rectum with some sigmoid and rectal distention. Cannot exclude mild stercoral colitis of the rectum.' It was recommended that patient receive a milk of molasses enema which she refused.
Patient was given a prescription for magnesium citrate but was told that she may from complications of the colitis. Patient states she took the magnesium citrate and it 'cleared me out.' She passed a large amount of stool after taking this.
Last bowel movement was a few days ago. She no longer feels constipated although she wants to make sure she is not going to and would like a repeat CT scan. Her only current symptom is fatigue. She reports not being able to sleep well for the
past 2 days. She denies any abdominal pain, rectal pain, fevers, vomiting, difficulty urinating.
Past History
Past History
ED Past Medical History: Arrthythmia (Atrial fibrillation), CAD, CHF, CVA (2006, 2016, 2019), HTN, Hypercholesterolemia, [place], Hypothyroidism, Psychiatric (Depression), Other (Right kidney infarction, vitamin D deficiency, osteopenia, Hemorrhoids,
Colitis, Anemia, ) and Other (Vertigo, iron deficiency anemia); Negative NIDDM (Prediabetes)
ED Past Surgical History: Cardiac (Pacemaker, CABG), Gynecological ( Hysterectomy and Oophorectomy one side), Orthopedic (left hip fracture with repair) and Other (hernia repair)
Social History
Tobacco: Former smoker
Alcohol: Daily
Drug: None
Personal:
Living: with family
Employment: Retired
Family History
Family History: Other (Reviewed and Noncontributory)
Phy Exam
General Physical Exam
General Presentation: well appearing and no apparent distress
General age: appears stated age
General Skin: warm and dry
General Habitus: normal
General Mental: alert
ENT Exam
ENT Exam: normocephalic
Cardiovascular Exam
Cardiovascular Exam: regular rate/rhythm
Pulmonary Exam
Pulmonary Exam: lungs clear, no respiratory distress, no rales, no crackles, no rhonchi and no wheezing
Gastrointestinal Exam
Gastrointestinal Exam: non tender, soft and non distended
Neurological Exam
Neurological Exam: alert
Nadine Coma Scale
Eye Opening: Spontaneous
Verbal Response: Oriented
Motor Response: Obeys Commands
GCS Total Score: 15
Skin Exam
Skin Exam: normal color and warm/dry
Psychiatric Exam
Psychiatric Exam: normal mood/affect
Course
Orders/Labs/Results
Orders:
Orders
08/24/24 10:54
Iohexol [Omnipaque] See Protocol PO NOW STA
08/24/24 10:56
CT Abd/pel W Iv And Oral Contr Urgent
Comment:
Reason For Exam: Constipation, ?stercoral colitis on recent imaging
08/24/24 11:12
Complete Blood Count/With Diff Urgent
Comprehensive Metabolic Panel Urgent
08/24/24 13:01
Urinalysis Reflex To Culture Urgent
Date Specimen was Collected: 08/24/24
Time Specimen was Collected: 12:41
Urine Microscopic Reflex Cult Urgent
Abnormal Lab Results
08/24/24 08/24/24
11:12 13:01
RBC 3.27 L 10^6/uL
(4.20-5.40)
Hgb 10.3 L g/dL
(12.0-16.0)
Hct 32.9 L %
(37.0-47.0)
MCV 100.6 H fL
(81.0-99.0)
MCH 31.5 H pg
(27.0-31.0)
MCHC 31.3 L g/dL
(33.0-37.0)
Absolute Lymphs (auto) 0.6 L 10^3/uL
(1.2-3.4)
Absolute Monos (auto) 0.7 H 10^3/uL
(0.1-0.6)
Lymphocytes % 11.1 L %
(20.5-51.1)
Monocytes % 14.2 H %
(1.7-9.3)
BUN 25 H mg/dl
(7-17)
Creatinine 1.2 H mg/dL
(0.6-1.0)
Glucose 108 H mg/dl
(70-99)
Alkaline Phosphatase 22 L U/L
(38-126)
Ur Occult Blood Reflex 4+ A
(Negative)
Urine RBC 80-90 A /HPF
(0-2)
Urine Bacteria (Reflex) Few A
(Negative)
08/24/24 11:12
08/24/24 11:12
Vital Signs
Initial and Last Documented VS:
Initial Vital Signs
Temp Pulse Resp BP Pulse Ox
97.6 F 75 18 119/68 95
08/24/24 09:58 08/24/24 09:58 08/24/24 09:58 08/24/24 09:58 08/24/24 09:58
Last Documented Vital Signs
Temp Pulse Resp BP Pulse Ox
97.6 F 70 16 111/71 98
08/24/24 09:58 08/24/24 15:00 08/24/24 14:45 08/24/24 15:00 08/24/24 15:00
MDM/Problems Addressed
Differential Diagnosis Includes:
84yoF here in follow up for her recent ED visit last week. CT on 08/19 showed large amount of stool in rectum with possible stercoral colitis. She does not feel constipated currently. No vomiting, abd pain, difficulty urinating. VSS. She is well
appearing in no distress. Abdominal exam is benign. Differential diagnosis includes but is not limited to: constipation, fecal impaction, colitis
Initial ED plan: Check CBC, CMP, and CT abdomen with IV/PO contrast.
*Critical Care Note
Total Time (30-74mins, 75-104mins- exclusive of procedures): Not Applicable
Update Note
Update Note:
Labs overall unremarkable. Hemoglobin and renal function at baseline. CT shows only a small volume of stool in the rectum. No evidence of stercoral colitis seen. There is moderate volume widespread colonic stool throughout. There is also a
possible small calculus in the right renal pelvis with some mild right perinephric stranding. UA obtained which shows 4+ blood without signs of infection. She has no flank or abdominal pain currently. No indication for hospitalization. Advised
MiraLAX as needed for constipation. Advised follow-up with PCP and urology. ED return precautions discussed. Patient and in agreement with plan. Patient discharged stable condition.
ED Attending Note
-
Portions of this chart may have been created with voice recognition software.� Occasional wrong word or��sound alike� substitutions may have occurred due to the inherent limitations of voice recognition software.
Discharge Plan
Departure
Patient Disposition: Home (Routine Discharge)
Date of Disposition: 08/24/24
Time of Disposition: 14:56
Patient with high blood pressure during this ER visit?: No
Discharge Problem:
Constipation, Calculus of right kidney, Microscopic hematuria
Instructions: Constipation, Adult (DC)
Prescriptions:
No Action
atorvastatin 40 MG tablet
40 mg PO HS
carvedilol 3.125 MG tablet
3.125 mg PO BID
levothyroxine 75 mcg Tablet
75 mcg PO DAILY
furosemide 40 mg tablet
40 mg PO BID
cholecalciferol (vitamin D3) [Vitamin D3] 25 mcg (1,000 unit) Capsule
25 mcg PO DAILY
ferrous sulfate 325 mg (65 mg iron) Tablet
325 mg PO DAILY
mecobalamin (vitamin B12) [B12 Active] 1,000 mcg Tablet,Chewable
1,000 mcg PO DAILY
dabigatran etexilate [Pradaxa] 150 mg capsule
150 mg PO BID
trazodone 50 mg Tablet
50 mg PO HS PRN (Reason: sleep)
ondansetron HCl 4 mg Tablet
4 mg PO DAILYPRN PRN (Reason: nausea/vomiting)
acetaminophen [Tylenol Extra Strength] 500 mg Tablet
1,000 mg PO Q6H PRN (Reason: mild pain)
docusate sodium 100 mg capsule
100 mg PO BIDPRN PRN (Reason: constipation)
levofloxacin 500 mg tablet
500 mg PO DAILY 5 Days Qty: 5 0RF
Referrals:
Clarence Kennedy Jr., MD [Active] -
Yanet Carmichael MD [Family Provider] -
Activity Restrictions/Additional Instructions:
Take Miralax daily as needed for constipation. Increase your fiber intake.
Please follow-up with your family doctor. You should also see urology for the blood seen in your urine.
Return to the ER with any worsening symptoms, fevers, pain.
Interventions
Interventions:
*Risk Screen - Suicide Last Done: 08/24/24 09:59
*General Assessment Last Done: 08/24/24 09:59
*Neglect/Abuse Screening Last Done: 08/24/24 09:59
ED- Fall Risk Assessment Last Done: 08/24/24 15:35
*ED COVID-19 Vaccine History Last Done: 08/24/24 15:35
*Nursing Disposition Last Done: 08/24/24 15:35
IC-Gjppyr-Zxqaqqpsel Assessment Last Done: 08/24/24 14:31
Discharge Date and Time
Discharge Date/Time: 08/24/24 15:36
Print Language: KHMER
[2024-08-24] MEDS: OMNIPAQUE 50 ML PO (11:12)
[2024-08-24 11:29] LABS: % Eosinophils 2.4 % (0-6); % Immature Granulocytes 0.4 % (0-0.5); % Lymphocytes 11.1 % (20.5-51.1); % Monocytes 14.2 % (1.7-9.3); % Neutrophils 70.9 % (42.2-75.2); Absolute Basophils 0.1 10^3/uL (0-0.2); Absolute Eosinophils 0.1 10^3/uL (0-0.7); Absolute Lymphocytes 0.6 10^3/uL (1.2-3.4); Absolute Monocytes 0.7 10^3/uL (0.1-0.6); Absolute Neutrophils 3.6 10^3/uL (1.4-6.5); Hematocrit 32.9 % (37.0-47.0); Hemoglobin 10.3 g/dL (12.0-16.0); Mean Corp Hgb Conc. 31.3 g/dL (33.0-37.0); Mean Corpuscular Hgb 31.5 pg (27.0-31.0); Mean Corpuscular Volume 100.6 fL (81.0-99.0); Mean Platelet Volume 9.6 fL (7.4-10.4); Nucleated Red Blood Cells % 0 %; Platelet Count 239 10^3/uL (130-400); Red Blood Cell Count 3.27 10^6/uL (4.20-5.40); Red Cell Dist. Width 14.4 % (11.5-14.5); White Blood Cell Count 5.1 10^3/uL (4.8-10.8)
[2024-08-24 12:16] LABS: ALT (SGPT) 16 U/L (0-35); AST (SGOT) 32 U/L (14-36); Albumin 3.9 g/dl (3.5-5.0); Alkaline Phosphatase 22 U/L (38-126); Blood Urea Nitrogen 25 mg/dl (7-17); Calcium 9.1 mg/dl (8.4-10.2); Carbon Dioxide 28 mmol/L (22-30); Chloride 99 mmol/L (98-107); Estimated Creatinine Clearance 26 ml/min; Glucose 108 mg/dl (70-99); Potassium 4.4 mmol/L (3.5-5.1); Sodium 137 mmol/L (135-145); Total Bilirubin 0.6 mg/dl (0.2-1.3); Total Protein 6.4 g/dl (6.3-8.2); eGFR 44.64
[2024-08-24 13:26] LABS: Urine Albumin Trace (Neg - Trace); Urine Bilirubin Negative (Negative); Urine Character Slightly Cloudy (Clear); Urine Color Yellow; Urine Glucose Negative (Negative); Urine Ketone Negative (Negative); Urine Leukocyte Negative (Negative); Urine Nitrite Negative (Negative); Urine Occult Blood 4+ (Negative); Urine Urobilinogen Negative (Neg - 1+)
[2024-08-24 13:47] LABS: Urine Bacteria Few (Negative); Urine Red Blood Cell 80-90 /HPF (0-2); Urine Squamous Cell 0-2 /LPF (Few); Urine White Cell 0-2 /HPF (0-5)
== END 2024-08-24 15:36 | disposition home or self-care (01) ==
LOC: EMR 09:46
PROVIDERS: Physician Assistant; EMERGENCY PHYSICIAN Emergency Medicine; FAMILY PHYSICIAN Family Medicine
DX: N20.0 Calculus of kidney (principal); K59.00 Constipation, unspecified; R31.29 Other microscopic hematuria; Z87.891 Personal history of nicotine dependence; I50.9 Heart failure, unspecified; I11.0 Hypertensive heart disease with heart failure
CPT/HCPCS: 99285; 74177; 80053; 81003; 81015; 85025; Q9967

== ENCOUNTER 2024-09-25 15:39 | Inpatient (IN) | payer MEDICARE, SELFPAY ==
[2024-09-25] VITALS (16 sets, daily range): BP systolic 123–144; BP diastolic 66–81; BMI 24.4
[2024-09-25 08:15] LABS: % Basophils 0.5 % (0-2); % Eosinophils 1.7 % (0-6); % Immature Granulocytes 0.3 % (0-0.5); % Lymphocytes 9.8 % (20.5-51.1); % Monocytes 9.8 % (1.7-9.3); % Neutrophils 77.9 % (42.2-75.2); Absolute Eosinophils 0.1 10^3/uL (0-0.7); Absolute Lymphocytes 0.6 10^3/uL (1.2-3.4); Absolute Monocytes 0.6 10^3/uL (0.1-0.6); Hematocrit 33.2 % (37.0-47.0); Mean Corp Hgb Conc. 33.1 g/dL (33.0-37.0); Mean Corpuscular Hgb 32.3 pg (27.0-31.0); Mean Corpuscular Volume 97.4 fL (81.0-99.0); Mean Platelet Volume 9.8 fL (7.4-10.4); Nucleated Red Blood Cells % 0 %; Platelet Count 217 10^3/uL (130-400); Red Blood Cell Count 3.41 10^6/uL (4.20-5.40); Red Cell Dist. Width 13.8 % (11.5-14.5); White Blood Cell Count 6.4 10^3/uL (4.8-10.8)
--- NOTE | 2024-09-25 08:20 | ED.GENMED ---
History of Present Illness
General
Chief Complaint: Abdominal Symptoms
Source: patient
Exam Limitations: none
Time Seen by Provider: 09/25/24 07:57
Nursing documentation reviewed up to this point in time: agreed with
History of Present Illness
History of Present Illness:
The patient is an 84-year-old female who reports 2 weeks of intermittent diarrhea. Patient reports it is nonbloody. She reports there are days with no diarrhea and then there are days with several episodes of diarrhea. Patient denies fever. She
reports intermittent associated abdominal cramping. She denies fever, nausea and vomiting. She denies sick contacts. Patient reports that she was on an antibiotic a few weeks ago, before the diarrhea started, for UTI. Patient is unsure of the
name of the antibiotic and when she started it. Patient denies travel history.
Past History
Past History
ED Past Medical History: Arrthythmia (Atrial fibrillation), CAD, CHF, CVA (2006, 2016, 2019), HTN, Hypercholesterolemia, [place], Hypothyroidism, Psychiatric (Depression), Other (Right kidney infarction, vitamin D deficiency, osteopenia, Hemorrhoids,
Colitis, Anemia, ) and Other (Vertigo, iron deficiency anemia); Negative NIDDM (Prediabetes)
ED Past Surgical History: Cardiac (Pacemaker, CABG), Gynecological ( Hysterectomy and Oophorectomy one side), Orthopedic (left hip fracture with repair) and Other (hernia repair)
Social History
Tobacco: Former smoker
Alcohol: Daily
Drug: None
Personal:
Living: with family
Employment: Retired
Family History
Family History: Other (Reviewed and Noncontributory)
Review of Systems
Review of Systems
Allergies reviewed?: Yes
All Other Systems: ROS reviewed and negative except as documented in HPI and ROS
Constitutional: Reports no symptoms
EENT: Reports no symptoms
Respiratory: Reports no symptoms
Cardiac: Reports no symptoms
ABD/GI: Reports abdominal pain and diarrhea
: Reports no symptoms
Musculoskeletal: Reports no symptoms
Skin: Reports no symptoms
Neurological: Reports no symptoms
Endocrine: Reports no symptoms
Hematologic/Lymphatic: Reports no symptoms
Psychiatric: Reports no symptoms
Phy Exam
Physical Exam
Physical Exam:
Physical Exam
General: no apparent distress, not acutely ill, well appearing
Neck: supple. no meningeal signs. normal psoterior pharynx
Heart: s1/s2 regular rate and rhythm, no murmur. equal radial pulses.
Lungs: no acute respiratory distress. clear bilaterally
Abdomen: normal bowel sounds. not tender. no CVAT. Abdomen is soft throughout. Nontender.
Neuro: alert and oriented. no focal neurological deficits
Skin: no rash
Psychiatric: well kept. interactive and cooperative
Extremities: no edema. no calf tenderness. negative homans. good distal pulses
Course
Orders/Labs/Results
Orders:
Orders
09/25/24 07:53
CMP [Comprehensive Metabolic Panel] Urgent
Complete Blood Count/With Diff Urgent
09/25/24 08:19
Norovirus by PCR Urgent
KHUSHBOO Source: Feces/Stool
Specimen Description:
STOOL [C difficile Antigen & Toxins] Urgent
KHUSHBOO Source: Feces/Stool
Specimen Description:
Stool Culture Urgent
KHUSHBOO Source: Feces/Stool
Specimen Description:
09/25/24 08:20
0.9% Sodium Chloride 1000 ml [Nss] 1,000 ml IV BOLUS
09/25/24 09:51
CT Abd/pelvis W Iv Cont Urgent
Comment:
Reason For Exam: diarrhea for 2 weeks and ab pain
Abnormal Lab Results
09/25/24
07:53
RBC 3.41 L 10^6/uL
(4.20-5.40)
Hgb 11.0 L g/dL
(12.0-16.0)
Hct 33.2 L %
(37.0-47.0)
MCH 32.3 H pg
(27.0-31.0)
Absolute Lymphs (auto) 0.6 L 10^3/uL
(1.2-3.4)
Neutrophils % 77.9 H %
(42.2-75.2)
Lymphocytes % 9.8 L %
(20.5-51.1)
Monocytes % 9.8 H %
(1.7-9.3)
BUN 25 H mg/dl
(7-17)
Glucose 102 H mg/dl
(70-99)
09/25/24 07:53
09/25/24 07:53
Vital Signs
Initial and Last Documented VS:
Initial Vital Signs
Temp Pulse Resp BP Pulse Ox
98.3 F 71 16 139/79 98
09/25/24 06:58 09/25/24 06:58 09/25/24 06:58 09/25/24 06:58 09/25/24 06:58
Last Documented Vital Signs
Temp Pulse Resp BP Pulse Ox
98.3 F 70 15 140/71 98
09/25/24 06:58 09/25/24 08:45 09/25/24 08:45 09/25/24 08:00 09/25/24 08:45
MDM/Problems Addressed
Differential Diagnosis Includes:
Viral diarrhea, bacterial diarrhea, C. difficile, acute diverticulitis
MDM/Problems Addressed:
Patient presents with acute diarrhea
Chronic conditions affecting care: Arrhythmia
Acute Exacerbation and/or Progression of Chronic Illness:
Patient's heart rate controlled.
*Radiology
Radiology exam reviewed: radiology read reviewed
*Pulse Oximetry
Patient hypoxic: no
*EKG
Interpreted by ED Provider?: NA
*Navigating Officer Interpretation
Rate: normal
Interpretation: abnormal
Rhythm: other (Paced rhythm)
*Critical Care Note
Total Time (30-74mins, 75-104mins- exclusive of procedures): Not Applicable
Data Reviewed
Review of Other/Old Records Reveals: Radiology Studies (August [address] of abdomen pelvis which showed moderate colonic stool)
Source: patient
ED Attending Note
-
Portions of this chart may have been created with voice recognition software.� Occasional wrong word or��sound alike� substitutions may have occurred due to the inherent limitations of voice recognition software.
Discharge Plan
Departure
Prescriptions:
No Action
atorvastatin 40 MG tablet
40 mg PO HS
carvedilol 3.125 MG tablet
3.125 mg PO BID
levothyroxine 75 mcg Tablet
75 mcg PO DAILY
furosemide 40 mg tablet
40 mg PO BID
cholecalciferol (vitamin D3) [Vitamin D3] 25 mcg (1,000 unit) Capsule
25 mcg PO DAILY
ferrous sulfate 325 mg (65 mg iron) Tablet
325 mg PO DAILY
mecobalamin (vitamin B12) [B12 Active] 1,000 mcg Tablet,Chewable
1,000 mcg PO DAILY
dabigatran etexilate [Pradaxa] 150 mg capsule
150 mg PO BID
trazodone 50 mg Tablet
50 mg PO HS PRN (Reason: sleep)
ondansetron HCl 4 mg Tablet
4 mg PO DAILYPRN PRN (Reason: nausea/vomiting)
acetaminophen [Tylenol Extra Strength] 500 mg Tablet
1,000 mg PO Q6H PRN (Reason: mild pain)
docusate sodium 100 mg capsule
100 mg PO BIDPRN PRN (Reason: constipation)
levofloxacin 500 mg tablet
500 mg PO DAILY 5 Days Qty: 5 0RF
Referrals:
Yanet Carmichael MD [Family Provider] -
Interventions
Interventions:
*Risk Screen - Suicide Last Done: 09/25/24 06:58
*Neglect/Abuse Screening Last Done: 09/25/24 06:58
ED- Fall Risk Assessment Last Done: 09/25/24 07:33
*ED COVID-19 Vaccine History Last Done: 09/25/24 07:33
EK-Bjuavq-Wmosiifwvy Assessment Last Done: 09/25/24 07:35
Discharge Date and Time
Print Language: [id number]
[2024-09-25 08:29] LABS: Blood Urea Nitrogen 25 mg/dl (7-17); Estimated Creatinine Clearance 35 ml/min; Glucose 102 mg/dl (70-99)
[2024-09-25 08:30] LABS: ALT (SGPT) 12 U/L (0-35); AST (SGOT) 24 U/L (14-36); Albumin 3.9 g/dl (3.5-5.0); Alkaline Phosphatase 38 U/L (38-126); Calcium 9.1 mg/dl (8.4-10.2); Carbon Dioxide 24 mmol/L (22-30); Chloride 103 mmol/L (98-107); Potassium 3.9 mmol/L (3.5-5.1); Sodium 138 mmol/L (135-145); Total Bilirubin 1.2 mg/dl (0.2-1.3); Total Protein 6.4 g/dl (6.3-8.2); eGFR > 60.00
[2024-09-25] MEDS: NSS 1000 IV ×2 (08:30→17:19)
[2024-09-25 12:14] LABS: Urine Albumin 2+ (Neg - Trace); Urine Bilirubin Negative (Negative); Urine Character Slightly Cloudy (Clear); Urine Color Yellow; Urine Glucose Negative (Negative); Urine Ketone Negative (Negative); Urine Leukocyte Trace (Negative); Urine Nitrite Negative (Negative); Urine Occult Blood 4+ (Negative); Urine Specific Gravity 1.025 (<1.030); Urine Urobilinogen Negative (Neg - 1+)
[2024-09-25 13:26] LABS: Urine Bacteria Moderate (Negative); Urine Red Blood Cell 70-80 /HPF (0-2)
--- NOTE | 2024-09-25 13:33 | ED.GENMED ---
History of Present Illness
General
Chief Complaint: Abdominal Symptoms
Source: patient
Exam Limitations: none
Time Seen by Provider: 09/25/24 07:57
Nursing documentation reviewed up to this point in time: agreed with
History of Present Illness
History of Present Illness:
See my chart from same visit
Past History
Past History
ED Past Medical History: Arrthythmia (Atrial fibrillation), CAD, CHF, CVA (2006, 2016, 2019), HTN, Hypercholesterolemia, SC, Hypothyroidism, Psychiatric (Depression), Other (Right kidney infarction, vitamin D deficiency, osteopenia, Hemorrhoids,
Colitis, Anemia, ) and Other (Vertigo, iron deficiency anemia); Negative NIDDM (Prediabetes)
ED Past Surgical History: Cardiac (Pacemaker, CABG), Gynecological ( Hysterectomy and Oophorectomy one side), Orthopedic (left hip fracture with repair) and Other (hernia repair)
Social History
Tobacco: Former smoker
Alcohol: Daily
Drug: None
Personal:
Living: with family
Employment: Retired
Family History
Family History: Other (Reviewed and Noncontributory)
Review of Systems
Review of Systems
Allergies reviewed?: Yes
All Other Systems: Not applicable
Phy Exam
Physical Exam
Physical Exam:
See my chart from same visit
Course
Orders/Labs/Results
Orders:
Orders
09/25/24 07:53
CMP [Comprehensive Metabolic Panel] Urgent
Complete Blood Count/With Diff Urgent
09/25/24 08:20
0.9% Sodium Chloride 1000 ml [Nss] 1,000 ml IV BOLUS
09/25/24 09:51
CT Abd/pelvis W Iv Cont Urgent
Comment:
Reason For Exam: diarrhea for 2 weeks and ab pain
09/25/24 11:26
Norovirus by PCR Urgent
KHUSHBOO Source: Feces/Stool
Specimen Description:
Date Specimen was Collected: 09/25/24
Time Specimen was Collected: 11:11
STOOL [C difficile Antigen & Toxins] Urgent
KHUSHBOO Source: Feces/Stool
Specimen Description:
Date Specimen was Collected: 09/25/24
Time Specimen was Collected: 11:11
Stool Culture Urgent
KHUSHBOO Source: Feces/Stool
Specimen Description:
Date Specimen was Collected: 09/25/24
Time Specimen was Collected: 11:11
09/25/24 12:04
Urinalysis Reflex To Culture Urgent
Date Specimen was Collected: 09/25/24
Time Specimen was Collected: 11:58
Urine Microscopic Reflex Cult Urgent
Urine Culture Urgent
KHUSHBOO Source: U
Specimen Description:
Date Specimen was Collected: 09/25/24
Time Specimen was Collected: 11:58
09/25/24 13:52
CefTRIAXone [Rocephin] 1,000 mg IV NOW STA
Abnormal Lab Results
09/25/24 09/25/24
07:53 12:04
RBC 3.41 L 10^6/uL
(4.20-5.40)
Hgb 11.0 L g/dL
(12.0-16.0)
Hct 33.2 L %
(37.0-47.0)
MCH 32.3 H pg
(27.0-31.0)
Absolute Lymphs (auto) 0.6 L 10^3/uL
(1.2-3.4)
Neutrophils % 77.9 H %
(42.2-75.2)
Lymphocytes % 9.8 L %
(20.5-51.1)
Monocytes % 9.8 H %
(1.7-9.3)
BUN 25 H mg/dl
(7-17)
Glucose 102 H mg/dl
(70-99)
Ur Occult Blood Reflex 4+ A
(Negative)
Leukocyte Esterase Rfl Trace A
(Negative)
Urine RBC 70-80 A /HPF
(0-2)
Urine Bacteria (Reflex) Moderate A
(Negative)
Urine Albumin (Reflex) 2+ A
(Neg - Trace)
09/25/24 07:53
09/25/24 07:53
Vital Signs
Initial and Last Documented VS:
Initial Vital Signs
Temp Pulse Resp BP Pulse Ox
98.3 F 71 16 139/79 98
09/25/24 06:58 09/25/24 06:58 09/25/24 06:58 09/25/24 06:58 09/25/24 06:58
Last Documented Vital Signs
Temp Pulse Resp BP Pulse Ox
98.3 F 70 18 138/81 96
09/25/24 06:58 09/25/24 13:00 09/25/24 13:00 09/25/24 13:00 09/25/24 13:00
*Radiology
Radiology exam reviewed: radiology read reviewed
*Pulse Oximetry
Patient hypoxic: no
*EKG
Interpreted by ED Provider?: NA
*Supervisor Delivery Department Interpretation
Rate: normal
Interpretation: normal
Rhythm: sinus
*Critical Care Note
Total Time (30-74mins, 75-104mins- exclusive of procedures): Not Applicable
Data Reviewed
Source: patient
ED Attending Note
-
Portions of this chart may have been created with voice recognition software.� Occasional wrong word or��sound alike� substitutions may have occurred due to the inherent limitations of voice recognition software.
Discharge Plan
Departure
Patient Disposition: Admit
Date of Disposition: 09/25/24
Time of Disposition: 13:34
Admit to: Med/Surg
Presentation/result/management discussed w/ accepting MD/DO: Hospitalist
Patient with high blood pressure during this ER visit?: Yes
Condition: Good
Covid-19: Not Applicable
Discharge Problem:
Pyelonephritis of right kidney, Subacute diarrhea
Prescriptions:
No Action
atorvastatin 40 MG tablet
40 mg PO HS
carvedilol 3.125 MG tablet
3.125 mg PO BID
levothyroxine 75 mcg Tablet
75 mcg PO DAILY
furosemide 40 mg tablet
40 mg PO BID
cholecalciferol (vitamin D3) [Vitamin D3] 25 mcg (1,000 unit) Capsule
25 mcg PO DAILY
ferrous sulfate 325 mg (65 mg iron) Tablet
325 mg PO DAILY
mecobalamin (vitamin B12) [B12 Active] 1,000 mcg Tablet,Chewable
1,000 mcg PO DAILY
dabigatran etexilate [Pradaxa] 150 mg capsule
150 mg PO BID
trazodone 50 mg Tablet
50 mg PO HS PRN (Reason: sleep)
ondansetron HCl 4 mg Tablet
4 mg PO DAILYPRN PRN (Reason: nausea/vomiting)
acetaminophen [Tylenol Extra Strength] 500 mg Tablet
1,000 mg PO Q6H PRN (Reason: mild pain)
docusate sodium 100 mg capsule
100 mg PO BIDPRN PRN (Reason: constipation)
Referrals:
Yanet Carmichael MD [Family Provider] -
Interventions
Interventions:
*Risk Screen - Suicide Last Done: 09/25/24 06:58
*Neglect/Abuse Screening Last Done: 09/25/24 06:58
ED- Fall Risk Assessment Last Done: 09/25/24 07:33
*ED COVID-19 Vaccine History Last Done: 09/25/24 07:33
YL-Tyixvs-Puojsssobh Assessment Last Done: 09/25/24 07:35
Discharge Date and Time
Print Language: MALAWIAN
[2024-09-25] MEDS: ROCEPHIN 1000 MG IV (13:57)
--- NOTE | 2024-09-25 14:11 | HPS.HSE ---
Family Physician
-
Family Physician: Yanet Carmichael
Chief Complaint
-
diarrhea
History of Present Illness
Patient is [id number] female with past medical history significant for paroxysmal atrial fibrillation, HFrEF, secondary pulmonary arterial hypertension, hyperlipidemia, hypothyroidism, moderate mitral regurgitation and iron deficient anemia who
presented to [facility] for evaluation of diarrhea that has been intermittent for several weeks. Patient states she has had diarrhea for several weeks, not associated with any other symptoms. She reports a good appetite and no abdominal
discomfort. Denies any fever, chills, cough, SOB, chest pain, nausea, diarrhea, or urinary symtpoms.
Medical History
Past Medical History
Past Medical History: Reports Other
Additional Past Medical History:
paroxysmal atrial fibrillation
hypertension
HFrEF
secondary pulmonary arterial hypertension
hyperlipidemia
hypothyroidism
moderate mitral regurgitation
iron deficient anemia
Past Surgical History: Reports Other
Additional Past Surgical History:
cardiac cath
pericardiocentesis for large pericardial effusion
pacemaker
left hip ORIF
right renal infarct
Social History
Tobacco: Non-smoker
Alcohol: Daily (1 glass of wine daily)
Drug: None
Personal:
Living: With Family
Employment: Retired
Family History
Family History: Not pertinent
Allergies / Home Medications
Allergies reflects when Allergies were last updated in [facility].
Home Medications with original date entered in [facility]
Allergy/Medication List:
Allergies
Allergy/AdvReac Type Severity Reaction Status Date / Time
adhesive tape Allergy Itching Verified 09/25/24 06:58
bacitracin Allergy Rash Verified 09/25/24 06:58
dapagliflozin [From Farxiga] Allergy Pharmacy Verified 09/25/24 06:58
to Review
latex Allergy Rash Verified 09/25/24 06:58
neomycin Allergy Rash Verified 09/25/24 06:58
polymyxin B Allergy Rash Verified 09/25/24 06:58
pramoxine Allergy Rash Verified 09/25/24 06:58
Home Medications
atorvastatin 40 mg tablet 40 mg PO HS High cholesterol 01/13/21
carvedilol 3.125 mg tablet 3.125 mg PO BID Heart Failure 01/13/21
furosemide 40 mg tablet 40 mg PO BID Fluid Retention/Swelling 08/25/23
levothyroxine 75 mcg tablet 75 mcg PO DAILY Thyroid 08/25/23
cholecalciferol (vitamin D3) 25 mcg (1,000 unit) capsule (Vitamin D3) 25 mcg PO DAILY Supplement 08/27/23
ferrous sulfate 325 mg (65 mg iron) tablet 325 mg PO DAILY Supplement 08/27/23
dabigatran etexilate 150 mg capsule (Pradaxa) 150 mg PO BID Blood Clot Prevention/Tx 09/13/23
acetaminophen 500 mg tablet (Tylenol Extra Strength) 1,000 mg PO Q6HPRN PRN mild pain 03/08/24
cyanocobalamin (vitamin B-12) 1,000 mcg tablet 1,000 mcg PO DAILY 09/25/24
loperamide 2 mg tablet 2 mg PO DAILYPRN PRN dairrhea 09/25/24
Review of Systems
-
History Source: Patient
Constitutional: Reports No Symptoms
EENT: Reports No Symptoms
Respiratory: Reports No Symptoms
Cardiac: Reports No Symptoms
Abdomen/GI: Reports Diarrhea (intermittent for several weeks)
: Reports No Symptoms
Musculoskeletal: Reports No Symptoms
Skin: Reports No Symptoms
Neurological: Reports No Symptoms
Endocrine: Reports No Symptoms
Hematologic/Lymphatic: Reports No Symptoms
Psych: Reports No Symptoms
Physical Exam
Vital Signs
Vital Signs
Temp Pulse Resp BP Pulse Ox
98.3 F 70 18 138/81 96
09/25/24 06:58 09/25/24 13:00 09/25/24 13:00 09/25/24 13:00 09/25/24 13:00
Physical Exam
General: Well Developed, Well Nourished, No Apparent Distress, Comfortable and Conversant
HEENT: NormoCephalic, Moist mucous membranes, Atraumatic, PERRLA, [place] Conjunctivae, Nose Appears Normal, Ears Appear Normal and Neck Nontender
Respiratory: Clear; No Non Labored Respirations
Cardiac: S1/S2 and Regular Rhythm; No Murmur, Rub or Gallop
Breast: Deferred by me
GI: Soft and Non Tender; No Organomegaly
Rectal: Deferred by Provider
Genito-urinary: Deferred by me
Musculoskeletal: No Clubbing, No Cyanosis and No Edema
Skin: Warm and IV/Catheter Site; No Rash
Neuro: Awake, Alert, AO x 3 and Nonfocal/grossly intact
Psych: Calm and Intact Judgment/Insight
Laboratory Results
-
09/25/24 07:53
09/25/24 07:53
Laboratory Results
Total Bilirubin 1.2 mg/dl (0.2-1.3) 09/25/24 07:53
AST 24 U/L (14-36) 09/25/24 07:53
ALT 12 U/L (0-35) 09/25/24 07:53
Alkaline Phosphatase 38 U/L (38-126) 09/25/24 07:53
Data Reviewed
-
CT Scan: Report Reviewed by me (Abd/Pelvis: 1. ACUTE STERCORAL COLITIS in the rectum which is distended with a large volume of fecal material. Moderate amount of fecal material throughout the colon. Severe diffuse colonic diverticulosis. 2.
ACUTE RIGHT PYELONEPHRITIS and pelvic ureteritis with a delayed and striated renal nep)
Lab Data: Labs Reviewed by me
Impression/Plan
-
IMPRESSION/PLAN:
#acute right pyelonephritis
Abd/Pelvis CT: 1. ACUTE STERCORAL COLITIS in the rectum which is distended with a large volume of fecal material. Moderate amount of fecal material throughout the colon. Severe diffuse colonic diverticulosis.
2. ACUTE RIGHT PYELONEPHRITIS and pelvic ureteritis with a delayed and striated renal nephrogram, moderate perinephric and peripelvic inflammation, a small amount of nonloculated perinephric fluid, and a
7.9 mm calculus in the right renal pelvis.
3. Large paraesophageal hiatal hernia.
4. Severe calcific atherosclerotic plaque in the abdominal aorta.
5. Mild to moderate cardiomegaly.
6. Small left pleural effusion.
7. Severe facet joint arthrosis and moderate multilevel discogenic degenerative disease in the lumbar spine.
- Admit to med/surg
- Consult ID
- IV Zosyn
- yvette IVF
#intermittent nonbloody diarrhea for weeks
#Acute stercoral colitis
Abd/Pelvis CT: 1. ACUTE STERCORAL COLITIS in the rectum which is distended with a large volume of fecal material. Moderate amount of fecal material throughout the colon. Severe diffuse colonic diverticulosis.
2. ACUTE RIGHT PYELONEPHRITIS and pelvic ureteritis with a delayed and striated renal nephrogram, moderate perinephric and peripelvic inflammation, a small amount of nonloculated perinephric fluid, and a
7.9 mm calculus in the right renal pelvis.
3. Large paraesophageal hiatal hernia.
4. Severe calcific atherosclerotic plaque in the abdominal aorta.
5. Mild to moderate cardiomegaly.
6. Small left pleural effusion.
7. Severe facet joint arthrosis and moderate multilevel discogenic degenerative disease in the lumbar spine.
C.Diff: Negative
- consult GI
- IV Zosyn
- Miralax now and in morning
#paroxysmal atrial fibrillation
- continue carvedilol, and dabigatran
#hypertension
- continue carvedilol
#HFrEF
ECHO (07/04/2023): Mildly to moderately reduced left ventricular systolic function.
Left ventricular ejection fraction is 40-45% by visual estimate.
Anteroseptal, inferior and inferoseptal hypokinesis.
Mild mitral regurgitation.
Aortic sclerosis without stenosis.
Mild tricuspid regurgitation.
Small pericardial effusion
- continue carvedilol
- hold furosemide
- daily weights
#hyperlipidemia
- continue atorvastatin
#hypothyroidism
- continue levothyroxine
#iron deficient anemia
- continue ferrous sulfate
#Hx CVA x3
#secondary pulmonary arterial hypertension
#moderate mitral regurgitation
Code Status: Full Code
DVT Prophylaxis: Pradaxa
--- NOTE | 2024-09-25 14:35 | W.PN.UPDATE ---
Update Note
Progress Note Update
This note serves as an addendum to the H&P by jewelsmith GUERDA Yuliya Alva
HPI
84F Former smoker HX Colitis,, Right kidney infarction, Pacemaker, CABG, [place], CAD, A Fib o Pradaxa, CHF, CVA (2005, 2016, 2019), HTN, Hypercholesterolemia, Hypothyroidism seen at ER:
- 2 weeks of intermittent nonbloody diarrhea
- there are days with no diarrhea and then there are days with several episodes of diarrhea.
- intermittent associated abdominal cramping.
- reports that she was on an antibiotic (uncertain about name) a few weeks ago, before the diarrhea started, for UTI.
ROS
- denies fever. She denies fever, nausea and vomiting. She denies sick contacts.
- Patient denies travel history.
Vital Signs
Temp Pulse Resp BP Pulse Ox
98.3 F 70 19 140/75 94
09/25/24 06:58 09/25/24 14:30 09/25/24 14:30 09/25/24 14:00 09/25/24 14:30
PE
Gen: Not toxic
HEENT:anicteric
Neck: supple
Lungs: CTA
Cor: RRR S1 S2
Abdomen: soft NT
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
MS: no edema
Psych calm
Laboratory Tests
08/24/24 09/25/24 09/25/24
11:12 07:53 12:04
Hgb 10.3 L 11.0 L
Plt Count 217
BUN 25 H
Creatinine 0.9
eGFR > 60.00
Leukocyte Esterase Rfl Trace A
Urine RBC 70-80 A
Urine WBC (Reflex) 6-10
Urine Bacteria (Reflex) Moderate A
Nl WCC
CT Abd/pelvis W Iv Cont
1. ACUTE STERCORAL COLITIS in the rectum which is distended with a large volume of fecal material. Moderate amount of fecal material throughout the colon. Severe diffuse colonic diverticulosis.
2. ACUTE RIGHT PYELONEPHRITIS and pelvic ureteritis with a delayed and striated renal nephrogram, moderate perinephric and peripelvic inflammation, a small amount of nonloculated perinephric fluid, and a 7.9 mm calculus in the right renal pelvis.
3. Large paraesophageal hiatal hernia.
4. Severe calcific atherosclerotic plaque in the abdominal aorta.
5. Mild to moderate cardiomegaly.
6. Small left pleural effusion.
7. Severe facet joint arthrosis and moderate multilevel discogenic degenerative disease in the lumbar spine.
07/03/23 TTE
LVEF 40- 45 %
Mild MR
Mild TR
Small pericardial effusion .
No PRIOR hospitalist admission:
ASSESSMENT & PLAN
Intermittent nonbloody diarrhea with abdominal cramp
DDX; overflow diarrhea due to constipation vs. ABX associated diarrhea ( BUDDY) vs. C Diff ( CDAD) vs.
POS CT for stercoral colitis; HX NOS Colitis,
- check C Diff stool , stool Cx
- Empiric IV Zosyn in place of IV CFTZ
- Gentle IVF NS
- Miralax now and in AM
- Hold Loperamide
- GI consult
UA not suggestive of Acute Rt PN s/p PO ABx for recent OP UTI
CT suggest ACUTE RIGHT PYELONEPHRITIS and pelvic ureteritis
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
- ID consult
HX chr HFrEF
- stable
- Hold Lasix for now
- f/u daily Wt
HX Prx A Fib
Pacemake implant
- c/w Carvedilol
- c/w Prdexa
HX [place], CAD
HX CABG
HLD
- cont. Atorvastatin
- cont. Carvedilol
HX CVA (2006, 2016, 2019)
- c/w Pradexa and Statin
Esentila HTN
- c/w Carvedilol
Hypothyroidism
- on LT4
DVT Px: on Pradaxa
Full code
IP MS .
--- NOTE | 2024-09-25 15:14 | CON.ID ---
Consultation
-
Date/Time Consultation Requested: September 25, 2024 1500
Date/Time Consultation Performed: September 25, 2024 1515
Requesting Provider: Sharon Alva NP
Performing Provider: Dr. Dilia Allison
Reason for Consultation: Pyelonephritis and colitis
Chief Complaint / Past History
Chief Complaint
Diarrhea
History of Present Illness
84-year-old female with history of paroxysmal atrial fibrillation on anticoagulation, pacemaker placement, hypothyroidism, who presented to the hospital today due to intermittent diarrhea x 2 weeks. Patient reports he she has history of
constipation. For the past 2 weeks she would have diarrhea 2-3 times a day x 2 days, then no bowel movements for few days, then diarrhea x 2 days. She had diarrhea overnight and therefore came to the ER. No abdominal pain. Of note she has had 3
CAT scans of the abdomen pelvis, August, August 24, and today all of which showed significant stool in the colon. Today's CAT scan also shows stercoral colitis in the rectum which is distended with a large volume of fecal material. CAT
scan also showed incidental findings of 'right pyelonephritis and pelvic ureteritis' and a 7.9 mm calculus in the right renal pelvis. Patient reports no urinary symptoms. No dysuria, no urinary urgency, no frequency, no flank pain. No fevers or
chills. She reports her PCP treated her for UTI/urinary urgency 2 weeks ago. She reports diarrhea has resolved. She did take 1 dose of Imodium 3 AM. She reports treated for C. difficile 2 years ago. Stool C. difficile antigen positive, toxin
negative today, August 19, 2024, and April 2022. C. difficile was negative August 2023.
Past History
Additional Past Medical History:
paroxysmal atrial fibrillation
hypertension
HFrEF
secondary pulmonary arterial hypertension
hyperlipidemia
hypothyroidism
right renal infarct/scarring
moderate mitral regurgitation
iron deficient anemia
CAD s/p CABG
pericardiocentesis for large pericardial effusion
pacemaker
left hip ORIF
Allergy History:
adhesive tape Allergy (Verified 09/25/24 06:58)
Itching
bacitracin Allergy (Verified 09/25/24 06:58)
Rash
dapagliflozin [From Farxiga] Allergy (Verified 09/25/24 15:05)
UTI,HYPERKALEMIA
latex Allergy (Verified 09/25/24 06:58)
Rash
neomycin Allergy (Verified 09/25/24 06:58)
Rash
polymyxin B Allergy (Verified 09/25/24 06:58)
Rash
pramoxine Allergy (Verified 09/25/24 06:58)
Rash
Medications Reviewed: Yes
Current Antibiotics:
Ceftriaxone
Social History
Tobacco: Former Smoker
Alcohol: Daily
Drug: None
Personal:
Family History
Family History: Not Pertinent
Review of Systems
Review of Systems
General: Negative Fever, Chills or Change in Appetite
HEENT: Negative Sinus Problems, Headache or Pharyngitis
Cardiovascular: Negative Chest Pain or Dyspnea
Respiratory: Negative Dyspnea or Cough
Gasteroenterology: Negative Nausea or Vomiting
Genital / Urological: Negative Dysuria, Hematuria or Flank Pain
Endocrine: Negative Weakness
Skin / Hair / Nails: Negative Rash
Neurological: Negative Dizziness
All systems: All other systems were reviewed and were negative
Vital Signs
Temp Pulse Resp BP Pulse Ox
98.3 F 70 19 140/75 94
09/25/24 06:58 09/25/24 14:30 09/25/24 14:30 09/25/24 14:00 09/25/24 14:30
Physical Exam
Physical Exam
Constitutional: No Acute Distress and Comfortable
Eyes: No Conjunctival Hemorrhage and Sclera Anicteric
Cardiovascular: Regular Rate and S1/S2
Pulmonary: Clear
Gastrointestinal: Soft, Non Tender, Non Distended and Normal Bowel Sounds
Genito-Urinary: Negative Suprapubic Tenderness or CVA Tenderness (bilaterally)
Extremities: Negative Edema
Neurological: AO x 3
Lab / Diagnostic Study Results
09/25/24 07:53
09/25/24 07:53
Abs Immat Gran (auto) 0.0 10^3/uL (0-0.05) 09/25/24 07:53
Absolute Neuts (auto) 5.0 10^3/uL (1.4-6.5) 09/25/24 07:53
Absolute Lymphs (auto) 0.6 10^3/uL (1.2-3.4) L 09/25/24 07:53
Absolute Monos (auto) 0.6 10^3/uL (0.1-0.6) 09/25/24 07:53
Absolute Basos (auto) 0.0 10^3/uL (0-0.2) 09/25/24 07:53
Immature Gran % 0.3 % (0-0.5) 09/25/24 07:53
Neutrophils % 77.9 % (42.2-75.2) H 09/25/24 07:53
Lymphocytes % 9.8 % (20.5-51.1) L 09/25/24 07:53
Monocytes % 9.8 % (1.7-9.3) H 09/25/24 07:53
Eosinophils % 1.7 % (0-6) 09/25/24 07:53
Basophils % 0.5 % (0-2) 09/25/24 07:53
Ur Squamous Epith Cells 3-5 /LPF (Few) 09/25/24 12:04
Microbiology Results
Micro:
09/25/24 11:26 C. difficile GDH Antigen & Toxins - Final
Feces/Stool C. difficile antigen positive, toxin negative.
Clostridium difficile present, but toxin not detected.
Patient may be a carrier, colonized with nontoxinogenic
strain or the level of toxin in sample is below detection
limits. This information should be used in conjunction with
the patient's clinical history.
- Final
Negative for Norovirus GI and GII.
09/25/24 12:04 Urine Culture - Pending
Urine
09/25/24 11:26 Salmonella/Shigella Culture - Pending
Feces/Stool Campylobacter Culture - Pending
Shiga Toxin Test - Pending
09/25/24 CT a/p: ACUTE STERCORAL COLITIS in the rectum which is distended with a large volume of fecal material. Moderate amount of fecal material throughout the colon. Severe diffuse colonic diverticulosis.
ACUTE RIGHT PYELONEPHRITIS and pelvic ureteritis with a delayed and striated renal nephrogram, moderate perinephric and peripelvic inflammation, a small amount of nonloculated perinephric fluid, and a 7.9 mm calculus in the right renal pelvis.
Assessment / Plan
# Intermittent diarrhea due to constipation with fecal overflow
- C, diff Ag+/toxin neg reflects colonization and does not clinically correlate with active C. diff
- Treat constipation.
- No need for abx for the stercoral colitis
# CT reports 'right pyelonephritis' with nonobstructing stone in renal pelvis.
-Imaging does not clinically correlate. Patient WITHOUT urinary symptoms. In addition, NO costovertebral angle tenderness on exam.
-Urine analysis is bland. Microhematuria due to anticoagulation.
-Recommend holding further antibiotic at this time especially in setting of C. difficile colonization.
-She will need to follow-up with with Urology outpatient for stone management.
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
paroxysmal atrial fibrillation
hypertension
HFrEF
secondary pulmonary arterial hypertension
hyperlipidemia
hypothyroidism
right renal infarct/scarring
moderate mitral regurgitation
iron deficient anemia
CAD s/p CABG
pericardiocentesis for large pericardial effusion
pacemaker
left hip ORIF
Care Review
Plan reviewed with: Other Provider (Aditi Alva NP)
[2024-09-25] MEDS: MIRALAX 17 GRAMS PO (17:21)
[2024-09-25] MEDS: COREG 3.125 MG PO (21:03)
[2024-09-25] MEDS: PRADAXA 150 MG PO (21:29)
[2024-09-25] MEDS: LIPITOR 40 MG PO (22:27)
[2024-09-26 01:47] VITALS: BP 142/78
[2024-09-26 05:16] LABS: Hematocrit 33.5 % (37.0-47.0); Mean Corp Hgb Conc. 32.8 g/dL (33.0-37.0); Mean Corpuscular Hgb 32.3 pg (27.0-31.0); Mean Corpuscular Volume 98.2 fL (81.0-99.0); Mean Platelet Volume 9.7 fL (7.4-10.4); Platelet Count 226 10^3/uL (130-400); Red Blood Cell Count 3.41 10^6/uL (4.20-5.40); Red Cell Dist. Width 13.8 % (11.5-14.5); White Blood Cell Count 6.8 10^3/uL (4.8-10.8)
[2024-09-26] MEDS: SYNTHROID 75 MCG PO (06:07)
[2024-09-26 06:09] LABS: Blood Urea Nitrogen 21 mg/dl (7-17); Calcium 9.2 mg/dl (8.4-10.2); Carbon Dioxide 18 mmol/L (22-30); Chloride 108 mmol/L (98-107); Estimated Creatinine Clearance 35 ml/min; Glucose 96 mg/dl (70-99); Potassium 3.7 mmol/L (3.5-5.1); Sodium 139 mmol/L (135-145); eGFR > 60.00
--- NOTE | 2024-09-26 06:59 | CON.GI ---
Addendum entered and electronically signed by Crystal Damon MD 09/26/24 18:12:
I saw and examined the patient.
The CURTAIN WORKER or PA's note was reviewed and I agree with the note.
Comment: 84-year-old female with history of paroxysmal A-fib on Pradaxa, CHF, CVA, CAD, CABG presenting with complaints of abdominal discomfort and diarrhea. Patient was not able to give me history and kept repeating 'go away'. History obtained
from review of chart. Baseline erratic bowel pattern with either constipation or diarrhea which she manages with both antidiarrheals and laxatives. In the emergency room, labs show mild anemia but otherwise unremarkable. CT scan of the abdomen
and pelvis with IV contrast only showing acute stercoral colitis with distended and large volume fecal material and moderate amount of fecal material throughout the colon and severe diffuse colonic diverticulosis and also concern for acute right
pyelonephritis and pelvic ureteritis. Large paraesophageal hiatal hernia noted.
She did have upper endoscopy and colonoscopy in 2021 for anemia, no evidence of ulcer disease, diverticulosis and internal hemorrhoids noted.
-Acute stercoral colitis , rectal exam by Deepika Dean showing large amount of soft stool without any hard impaction.
Patient did receive 1 milk of molasses enema and had 3 loose stool without solid material.
She is going to receive another fleets enema this evening.
Continue bowel regimen with MiraLAX 1 capful daily and Senokot 1 tablet twice a day
Currently on clear liquid diet, will advance as tolerated.
Hold off on antibiotics for now but if she has leukocytosis, will start antibiotics at that time.
Will monitor stool output and follow-up.
Original Note:
Consultation
-
Date/Time Consultation Requested: 09/25/24 1640
Date/Time Consultation Performed: 09/26/24 0730
Requesting Provider: CLARE Rivera
Performing Provider: CLARE Varela, Crystal Damon MD
Reason for Consultation: diarrhea/constipation
Medical History
Chief Complaint / HPI
Chief Complaint: diarrhea
History of Present Illness:
Pt is an 84yo with hx PAF on Pradaxa, CHF, HTN, hyperlipidemia, hypothyroidism, prior CVA, NM, pacer, prior CABG, right renal infarct with admission with 2 weeks of diarrhea with crampy abdominal pain. She was on recent abx for UTI. On admission
noted with WBC 6.4 hbg [address] a/p with acute stercoral colitis in rectum with distention and large volume of fecal material, moderate stool in colon and severe diverticulosis. There was also noted acute right pyelonephritis
and pelvic ureteritis with moderate inflammation and small amount of non loculated perinephric fluid and 7.9 mm calculus in right renal pelvis. Also incidental finding of large paraesophageal hernia, severe calcific plaque abdominal aorta, mild to
mod CM, small left effusion and DDD. She was recommended enema last PM but refused.
In review with patient she has history of alternating diarrhea and constipation. She admits to some continued crampy abdominal pain. She will take some laxative and some antidiarrheals. Over last 2 months she has had worsening issues with
diarrhea. She denies dysphagia, GERD, nausea, vomiting, or rectal bleeding.
02/2022 colonoscopy sorensen- done for anemia diverticulosis, IH
02/2022 EGD sorensen done for anemia normal esophagus, erythema in gastric body, normal duodenum bx neg
per patient ? hx Cologuard also negative
Past Medical History
Past Medical History: Arrhythmias (PAF), CHF, CVA, HTN, Hypercholesterolemia, Hypothyroidism, NM and Other (secondary pulm art HTN, moderate MR, SHABANA, right kidney infarct, vitamin D deficiency, osteopenia, hemorrhoids, colitis, anemia, vertigo)
Past Surgical History: Cardiac (pacer, CABG), Gynecological (hysterectomy, oophorectomy), Orthopedic (left hip ORIF) and Other (pericardiocentesis for large pericardial effusion, hernia repair)
Social History
Tobacco: Former Smoker (in 20's )
Alcohol: Daily (1 drink)
Drug: None
Personal:
Living: With Family
Employment: Retired
Family History
Family History: Other (no family hx GI issues or malignancies)
Allergies / Home Medications
Allergy/AdvReac Type Severity Reaction Status Date / Time
adhesive tape Allergy Itching Verified 09/25/24 06:58
bacitracin Allergy Rash Verified 09/25/24 06:58
dapagliflozin [From Farxiga] Allergy UTI,HYPERKA Verified 09/25/24 15:05
LEMIA
latex Allergy Rash Verified 09/25/24 06:58
neomycin Allergy Rash Verified 09/25/24 06:58
polymyxin B Allergy Rash Verified 09/25/24 06:58
pramoxine Allergy Rash Verified 09/25/24 06:58
�Medication �Instructions �Recorded
atorvastatin 40 mg tablet 40 mg PO HS High cholesterol 01/13/21
carvedilol 3.125 mg tablet 3.125 mg PO BID Heart Failure 01/13/21
furosemide 40 mg tablet 40 mg PO BID Fluid 08/25/23
Retention/Swelling
levothyroxine 75 mcg tablet 75 mcg PO DAILY Thyroid 08/25/23
cholecalciferol (vitamin D3) 25 25 mcg PO DAILY Supplement 08/27/23
mcg (1,000 unit) capsule (Vitamin
D3)
ferrous sulfate 325 mg (65 mg 325 mg PO DAILY Supplement 08/27/23
iron) tablet
dabigatran etexilate 150 mg 150 mg PO BID Blood Clot 09/13/23
capsule (Pradaxa) Prevention/Tx
acetaminophen 500 mg tablet 1,000 mg PO Q6HPRN PRN mild pain 03/08/24
(Tylenol Extra Strength)
cyanocobalamin (vitamin B-12) 1,000 mcg PO DAILY 09/25/24
1,000 mcg tablet
loperamide 2 mg tablet 2 mg PO DAILYPRN PRN dairrhea 09/25/24
Review of Systems
-
History Source: Patient
Constitutional: Reports No Symptoms
EENT: Reports No Symptoms
Respiratory: Reports No Symptoms
Cardiac: Reports No Symptoms
Abdomen/GI: Reports Abdominal Pain, Diarrhea and Constipated
: Reports No Symptoms
Musculoskeletal: Reports No Symptoms
Skin: Reports No Symptoms
Neurological: Reports Weakness
Endocrine: Reports No Symptoms
Hematologic/Lymphatic: Reports No Symptoms
Vital Signs
Temp Pulse Resp BP Pulse Ox
98.5 F 70 18 142/78 94
09/26/24 01:47 09/26/24 01:47 09/26/24 01:47 09/26/24 01:47 09/26/24 01:47
Physical Exam
Exam
General: Well Developed, Well Nourished and Other (states not feeling well but no specific complaints )
HEENT: Normocephalic and Anicteric
Respiratory: Clear
Cardiac: Regular Rhythm
GI: Soft, Non Distended and Other (no rebound or guarding-- some limitation as pt lying on side and declined turning )
Rectal: Brown (dark brown stool), Hem Positive and Other (large impaction on exam some limitation with large stool burden )
Musculoskeletal: No Clubbing and No Cyanosis
Skin: Warm and Dry
Neuro: Awake, Alert and AO x 3
Psych: Calm
Results
WBC 6.8 10^3/uL (4.8-10.8) 09/26/24 05:02
Hgb 11.0 g/dL (12.0-16.0) L 09/26/24 05:02
Hct 33.5 % (37.0-47.0) L 09/26/24 05:02
MCV 98.2 fL (81.0-99.0) 09/26/24 05:02
Plt Count 226 10^3/uL (130-400) 09/26/24 05:02
Absolute Neuts (auto) 5.0 10^3/uL (1.4-6.5) 09/25/24 07:53
Sodium 139 mmol/L (135-145) 09/26/24 05:02
Potassium 3.7 mmol/L (3.5-5.1) 09/26/24 05:02
Chloride 108 mmol/L (98-107) H 09/26/24 05:02
Carbon Dioxide 18 mmol/L (22-30) L 09/26/24 05:02
BUN 21 mg/dl (7-17) H 09/26/24 05:02
Creatinine 0.9 mg/dL (0.6-1.0) 09/26/24 05:02
Calcium 9.2 mg/dl (8.4-10.2) 09/26/24 05:02
Total Bilirubin 1.2 mg/dl (0.2-1.3) 09/25/24 07:53
AST 24 U/L (14-36) 09/25/24 07:53
ALT 12 U/L (0-35) 09/25/24 07:53
Alkaline Phosphatase 38 U/L (38-126) 09/25/24 07:53
Diagnostic Image Results:
09/25/24 CT Abd/pelvis W Iv Cont
1. ACUTE STERCORAL COLITIS in the rectum which is distended with a large volume of fecal material. Moderate amount of fecal material throughout the colon. Severe diffuse colonic diverticulosis.
2. ACUTE RIGHT PYELONEPHRITIS and pelvic ureteritis with a delayed and striated renal nephrogram, moderate perinephric and peripelvic inflammation, a small amount of nonloculated perinephric fluid, and a 7.9 mm calculus in the right renal pelvis.
3. Large paraesophageal hiatal hernia.
4. Severe calcific atherosclerotic plaque in the abdominal aorta.
5. Mild to moderate cardiomegaly.
6. Small left pleural effusion.
7. Severe facet joint arthrosis and moderate multilevel discogenic degenerative disease in the lumbar spine.
Prior GI Procedures:
02/2022 colonoscopy sorensen- done for anemia diverticulosis, IH
02/2022 EGD sorensen done for anemia normal esophagus, erythema in gastric body, normal duodenum bx neg
Assessment / Plan
-
Pt is an 84yo with hx PAF on Pradaxa, CHF, HTN, hyperlipidemia, hypothyroidism, prior CVA, NM, pacer, prior CABG, right renal infarct with admission with 2 weeks of diarrhea with crampy abdominal pain. She was on recent abx for UTI. On admission
noted with WBC 6.4 hbg [address] a/p with acute stercoral colitis in rectum with distention and large volume of fecal material, moderate stool in colon and severe diverticulosis. There was also noted acute right pyelonephritis
and pelvic ureteritis with moderate inflammation and small amount of non loculated perinephric fluid and 7.9 mm calculus in right renal pelvis. Also incidental finding of large paraesophageal hernia, severe calcific plaque abdominal aorta, mild to
mod CM, small left effusion and DDD.
02/2022 colonoscopy sorensen- done for anemia diverticulosis, IH
02/2022 EGD sorensen done for anemia normal esophagus, erythema in gastric body, normal duodenum bx neg
per patient ? hx Cologuard also negative report not reviewed
-diarrhea with concern for acute stercoral colitis on CT with impaction on exam
-anemia with hx chronic anemia
-heme + stool on exam
-acute right pyelonephritis
-recent UTI with abx use
-afib on Pradexa prior to admission
other med problems:
-CHF
-pacer
-prior NM
-prior CABG
-Hyperlipidemia
-HTN
-hypothyroidism
-hx CVA
-renal infarct
PLAN:
etiology of diarrhea with concern for overflow with large volume of stool in rectum on imaging and exam
currently no rebound, guarding, fever, leukocytosis and appears comfortable in bed
enema recommended last PM and pt refused
I reviewed with patient will continued to have diarrhea and overflow unless stool cleared and encouraged to take enema
if not clearing may need flex with anesthesia
she is anxious about enema -- will add Ativan prior to giving enema
abx held for now per ID
change to clear diet til impaction improves
remains on Miralax and senna -- will need laxative regiment on discharge and hold all antidiureals meds
ID seeing for possible pyelo
reviewed with nursing staff
-
-
Thank you for consultation and allowing me to participate in the patient's care. Please call the collection agent GI physician during the after hours with any questions or concerns.
--- NOTE | 2024-09-26 07:35 | W.PN.HOSP.TC ---
Addendum entered and electronically signed by Shreya Hoskins MD 09/26/24 15:23:
I personally performed a history and physical exam of the patient and discussed management with the resident. I reviewed the resident's note and agree with the documented findings and plan of care HPI/CC.
A/P:
# Intermittent overflow diarrhea
# Acute stercoral colitis
Abd/Pelvis CT: Acute stercoral colitis in the rectum which is distended with a large volume of fecal material. Acute right pyelonephritis and a 7.9 mm calculus in the right renal pelvis
C diff antigen positive, toxin negative.
No Abx per ID
Continue bowel regimen, enema if needed
GI on board
# Non obstructing right kidney stone, incidental right pyelonephritis
Afebrile, WBC within normal limits
pt without urinary symptoms, no Abx per ID
recc outpt urology follow up
# Paroxysmal atrial fibrillation
continue carvedilol and dabigatran
# Hypertension
continue carvedilol
# HFrEF
ECHO (07/04/2023):EF 40-45%. Mild mitral regurgitation. Aortic sclerosis without stenosis. Mild tricuspid regurgitation. Small pericardial effusion
continue carvedilol, home dose furosemide
daily weights
# Hyperlipidemia
continue atorvastatin
# Hypothyroidism
continue levothyroxine
# Iron deficient anemia
continue ferrous sulfate
# Hx CVA
Code Status: Full Code
DVT Prophylaxis: FINISHED CLOTH CHECKER Pradaxa
Original Note:
Today's Communication/Plan
-
continue clear diet
enema
continue bowel regiment
Assessment / Plan
Assessment / Plan
#Intermittent nonbloody diarrhea-Acute stercoral colitis
- Abd/Pelvis CT:Acute stercoral colitis in the rectum which is distended with a large volume of fecal material. Acute right pyelonephritis and a 7.9 mm calculus in the right renal pelvis
- C.Diff: Negative
- consult GI, input appreciated
- No antibiotics as of now
- Continue bowel regiment
-Continue clear diet
- Enemas for stool impaction
#Non obstructing acute right pyelonephritis
- Afebrile, WBC within normal limits
-pt without urinary symptoms
-Abd/Pelvis CT: Acute right pyelonephritis and a 7.9 mm calculus in the right renal pelvis
- Consult ID, input appreciated
- Discontinued IV Zosyn as per ID
- urology outpatient for further care
#Paroxysmal atrial fibrillation
- continue carvedilol, and dabigatran
#Hypertension
- continue carvedilol
#HFrEF
ECHO (07/04/2023):EF 40-45%. Mild mitral regurgitation. Aortic sclerosis without stenosis. Mild tricuspid regurgitation. Small pericardial effusion
- continue carvedilol
- hold furosemide
- daily weights
#Hyperlipidemia
- continue atorvastatin
#Hypothyroidism
- continue levothyroxine
#Iron deficient anemia
- continue ferrous sulfate
#Hx CVA
Code Status: Full Code
DVT Prophylaxis: Pradaxa
Anticipated Discharge: 24 - 48 hours
Subjective/Interval History
-
Date of Service: September 26, 2024
Patient continues to have diarrhea that is nonbloody.
Objective Data
-
Labs:
Laboratory Results
09/26/24
05:02
WBC 6.8
Hgb 11.0 L
Hct 33.5 L
Plt Count 226
Sodium 139
Potassium 3.7
Chloride 108 H
Carbon Dioxide 18 L
BUN 21 H
Creatinine 0.9
Glucose 96
Calcium 9.2
Vital Signs:
Vital Signs
Temp Pulse Resp BP Pulse Ox
98.5 F 70 18 142/78 94
09/26/24 01:47 09/26/24 01:47 09/26/24 01:47 09/26/24 01:47 09/26/24 01:47
Review of Systems
-
Constitutional: Denies Fever, Chills or Weakness
Respiratory: Reports No Symptoms
Cardiac: Reports No Symptoms
Abdomen/GI: Reports Diarrhea
Genitourinary: Reports No Symptoms
Neuro: Reports No Symptoms
Physical Exam
-
General: No Apparent Distress
HEENT: Normocephalic
Respiratory: Clear to Auscultation
Cardiac: Regular Rhythm and S1/S2
GI: Soft, Nontender and Nondistended
Musculoskeletal: No Edema
Skin: Warm and Dry
Neuro: Awake, Alert and Oriented
[2024-09-26 08:00] VITALS: BP 155/81
[2024-09-26] MEDS: NSS 1000 IV (09:52)
[2024-09-26] MEDS: VITAMIN B-12 1000 MCG PO (09:55)
[2024-09-26] MEDS: PRADAXA 150 MG PO ×2 (09:55→20:59)
[2024-09-26] MEDS: COREG 3.125 MG PO ×2 (10:01→20:03)
[2024-09-26] MEDS: MIRALAX 17 GRAMS PO (10:01)
[2024-09-26] MEDS: FEOSOL 325 MG PO (10:01)
[2024-09-26] MEDS: VITAMIN D3 (cholecalciferol) 25 MCG PO (10:01)
[2024-09-26] MEDS: SENOKOT-S 1 TABLET PO ×2 (10:10→20:02)
[2024-09-26] MEDS: ATIVAN 0.5 MG IV (11:02)
[2024-09-26] MEDS: NSS (PRESERVATIVE FREE) 0.25 ML IV (11:02)
[2024-09-26 11:35] VITALS: BMI 24.4
--- NOTE | 2024-09-26 13:00 | PTCARENOTE ---
Patient AAOx3, but continues to call out and get OOb with out calling for help. Bed alarm placed. Patient and spouse updated with plan of care. Spouse angry and states, 'This is not like the second floor. Whay are you doing for my .' Plan of
care explained again to spouse, clear liquid diet, enema x2.
[2024-09-26 14:34] VITALS: BP 155/81; PULSE 101; O2SAT 97
--- NOTE | 2024-09-26 15:22 | W.PN.ID1 ---
Date of Service
Date of Service: September 26, 2024
Today's Communication
Observe off abx.
ID will sign off.
Assessment / Plan
# Intermittent diarrhea due to constipation with overflow fecal incontinence
- C, diff Ag+/toxin neg reflects colonization and does not clinically correlate with active C. diff
- Treat constipation.
- No need for abx for the stercoral colitis
# No suspicion for pyelonephritis
-CT reports 'right pyelonephritis' with nonobstructing stone in renal pelvis.
Imaging does not clinically correlate. Patient WITHOUT COSTOVERTEBRAL ANGLE TENDERNESS. No urinary symptoms.
-Urine analysis is bland. Microhematuria due to anticoagulation.
- UCX NEGATIVE
-No need for antibiotic, especially in setting of C. difficile colonization.
-She will need to follow-up with with Urology outpatient for stone management.
ID will sign off.
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
paroxysmal atrial fibrillation
hypertension
HFrEF
secondary pulmonary arterial hypertension
hyperlipidemia
hypothyroidism
right renal infarct/scarring
moderate mitral regurgitation
iron deficient anemia
CAD s/p CABG
pericardiocentesis for large pericardial effusion
pacemaker
left hip ORIF
Chief Complaint
-: Other
Subjective / Review of Systems
No significant bowel movement. Sleepy from ativan.
Vital Signs / Physical Exam
Vital Signs
Vital Signs
Temp Pulse Resp BP Pulse Ox
97.7 F 90 18 155/81 96
09/26/24 08:00 09/26/24 08:00 09/26/24 08:00 09/26/24 08:00 09/26/24 08:00
Physical Exam
Constitutional: No Acute Distress
Cardiovascular: Regular Rate and S1/S2
Pulmonary: Clear
Gastrointestinal: Soft, Non Tender and Non Distended
Genito-Urinary: Negative Suprapubic Tenderness or CVA Tenderness
Extremities: Negative Edema
Objective Data
Lab Data
Lab Results
09/26/24 05:02
09/26/24 05:02
Estimated Creat Clear 35 ml/min 09/26/24 05:02
Total Bilirubin 1.2 mg/dl (0.2-1.3) 09/25/24 07:53
AST 24 U/L (14-36) 09/25/24 07:53
ALT 12 U/L (0-35) 09/25/24 07:53
Alkaline Phosphatase 38 U/L (38-126) 09/25/24 07:53
Most recent labs reviewed.
Micro Results:
09/25/24 11:26 Salmonella/Shigella Culture - Preliminary
Feces/Stool Culture in Progress
Campylobacter Culture - Preliminary
Culture in Progress
Shiga Toxin Test - Pending
09/25/24 12:04 Urine Culture - Final
Urine NO GROWTH
09/25/24 11:26 C. difficile GDH Antigen & Toxins - Final
Feces/Stool C. difficile antigen positive, toxin negative.
Clostridium difficile present, but toxin not detected.
Patient may be a carrier, colonized with nontoxinogenic
strain or the level of toxin in sample is below detection
limits. This information should be used in conjunction with
the patient's clinical history.
- Final
Negative for Norovirus GI and GII.
09/25/24 CT a/p: ACUTE STERCORAL COLITIS in the rectum which is distended with a large volume of fecal material. Moderate amount of fecal material throughout the colon. Severe diffuse colonic diverticulosis.
ACUTE RIGHT PYELONEPHRITIS and pelvic ureteritis with a delayed and striated renal nephrogram, moderate perinephric and peripelvic inflammation, a small amount of nonloculated perinephric fluid, and a 7.9 mm calculus in the right renal pelvis.
--- NOTE | 2024-09-26 16:02 | PTCARENOTE ---
Patient angry and refusing to be changed. Patient confused. Patient does not remember getting enemas. Patient stating 'Leave me alone. You are lying to me.'
[2024-09-26 16:37] VITALS: BP 99/42
--- NOTE | 2024-09-26 16:56 | PTCARENOTE ---
Patient was ordered two MOM enema by GI. Hosp ordered mineral oil enema. Per GI Physician-only give mineral oil enema, hold second MOM enema.
[2024-09-26] MEDS: FLEET MINERAL OIL ENEMA 133 ML RECTAL (17:07)
[2024-09-26] MEDS: LASIX 40 MG PO (20:03)
[2024-09-26] MEDS: LIPITOR 40 MG PO (21:01)
[2024-09-26 23:11] VITALS: BP 127/66
[2024-09-27] MEDS: NSS 1000 IV (03:07)
[2024-09-27] MEDS: SYNTHROID 75 MCG PO (04:58)
--- NOTE | 2024-09-27 07:34 | W.PN.HOSP.TC ---
Addendum entered and electronically signed by Shreya Hoskins MD 09/27/24 13:40:
I personally performed a history and physical exam of the patient and discussed management with the resident. I reviewed the resident's note and agree with the documented findings and plan of care HPI/CC.
A/P:
# Intermittent overflow diarrhea
# Acute stercoral colitis
Abd/Pelvis CT: Acute stercoral colitis in the rectum which is distended with a large volume of fecal material. Acute right pyelonephritis and a 7.9 mm calculus in the right renal pelvis
C diff antigen positive, toxin negative.
No Abx per ID
Continue bowel regimen and PRN enema
GI on board for disimpaction if needed
# Non obstructing right kidney stone, incidental right pyelonephritis
Afebrile, WBC within normal limits
pt without urinary symptoms, no Abx per ID
recc outpt urology follow up
# Paroxysmal atrial fibrillation
continue carvedilol and dabigatran
# Hypertension
continue carvedilol
# HFrEF
ECHO (07/04/2023):EF 40-45%. Mild mitral regurgitation. Aortic sclerosis without stenosis. Mild tricuspid regurgitation. Small pericardial effusion
continue carvedilol, home dose furosemide
daily weights
# Hyperlipidemia
continue atorvastatin
# Hypothyroidism
continue levothyroxine
# Iron deficient anemia
continue ferrous sulfate
# Hx CVA
Code Status: Full Code
DVT Prophylaxis: BIOPSYCHOLOGIST Pradaxa
DW GI
Original Note:
Today's Communication/Plan
-
Continue sennokot and miralax
Assessment / Plan
Assessment / Plan
Impression: Patient is [id number] female with past medical history significant for paroxysmal atrial fibrillation, HFrEF, secondary pulmonary arterial hypertension, hyperlipidemia, hypothyroidism, moderate mitral regurgitation and iron deficient
anemia who presented to [place] ED for evaluation of diarrhea that has been intermittent for several weeks.
#Intermittent nonbloody diarrhea-Acute stercoral colitis
- Abd/Pelvis CT:Acute stercoral colitis in the rectum which is distended with a large volume of fecal material. Acute right pyelonephritis and a 7.9 mm calculus in the right renal pelvis
- C.Diff: Negative
- consult GI, input appreciated
- No antibiotics as of now
- Continue bowel regiment, added miralax standing order with prn
-Continue clear diet
- Enemas for stool impaction yesterday
-Xray abd: large fecal impaction that is not significantly changed from prior
#Non obstructing acute right pyelonephritis
- Afebrile, WBC within normal limits
-pt without urinary symptoms
-Abd/Pelvis CT: Acute right pyelonephritis and a 7.9 mm calculus in the right renal pelvis
- Consult ID, input appreciated
- Discontinued IV Zosyn as per ID
- urology outpatient for further care
#Paroxysmal atrial fibrillation
- continue carvedilol, and dabigatran
#Hypertension
- continue carvedilol
#HFrEF
ECHO (07/04/2023):EF 40-45%. Mild mitral regurgitation. Aortic sclerosis without stenosis. Mild tricuspid regurgitation. Small pericardial effusion
- continue carvedilol
- hold furosemide
- daily weights
#Hyperlipidemia
- continue atorvastatin
#Hypothyroidism
- continue levothyroxine
#Iron deficient anemia
- continue ferrous sulfate
#Hx CVA
Code Status: Full Code
DVT Prophylaxis: Pradaxa
Anticipated Discharge: 24 - 48 hours
Subjective/Interval History
-
Date of Service: September 27, 2024
Patient states that she has not passed a bowel movement today but does not have any abdominal pain or vomiting.
Objective Data
-
Labs:
Laboratory Results
09/27/24
06:00
WBC Pending
Hgb Pending
Hct Pending
Plt Count Pending
Sodium Pending
Potassium Pending
Chloride Pending
Carbon Dioxide Pending
BUN Pending
Creatinine Pending
Glucose Pending
Calcium Pending
Vital Signs:
Vital Signs
Temp Pulse Resp BP Pulse Ox
98.6 F 71 18 127/66 93
09/26/24 23:11 09/26/24 23:11 09/26/24 23:11 09/26/24 23:11 09/26/24 23:11
I&O
09/26/24 09/27/24 09/28/24
06:59 06:59 06:59
Intake Total 0 / 0
Balance 0 / 0
Review of Systems
-
All other systems: Reviewed and negative
Physical Exam
-
General: No Apparent Distress
HEENT: Normocephalic
Respiratory: Clear to Auscultation
Cardiac: Regular Rhythm and S1/S2; Negative Murmur
GI: Soft, Nontender and Nondistended
Musculoskeletal: No Edema
Skin: Warm and Dry
Neuro: Awake, Alert and Oriented
Psych: Calm
[2024-09-27 07:55] VITALS: BP 129/69
[2024-09-27] MEDS: SENOKOT-S 1 TABLET PO ×2 (08:15→19:51)
[2024-09-27] MEDS: FEOSOL 325 MG PO (08:15)
[2024-09-27] MEDS: VITAMIN B-12 1000 MCG PO (08:15)
[2024-09-27] MEDS: VITAMIN D3 (cholecalciferol) 25 MCG PO (08:16)
[2024-09-27] MEDS: LASIX 40 MG PO ×2 (08:16→19:51)
[2024-09-27] MEDS: COREG 3.125 MG PO ×2 (08:17→19:51)
[2024-09-27 08:49] LABS: % Basophils 0.8 % (0-2); % Eosinophils 2.2 % (0-6); % Immature Granulocytes 0.2 % (0-0.5); % Lymphocytes 12.7 % (20.5-51.1); % Monocytes 10.7 % (1.7-9.3); % Neutrophils 73.4 % (42.2-75.2); Absolute Eosinophils 0.1 10^3/uL (0-0.7); Absolute Lymphocytes 0.6 10^3/uL (1.2-3.4); Absolute Monocytes 0.5 10^3/uL (0.1-0.6); Absolute Neutrophils 3.7 10^3/uL (1.4-6.5); Hematocrit 31.8 % (37.0-47.0); Hemoglobin 10.4 g/dL (12.0-16.0); Mean Corp Hgb Conc. 32.7 g/dL (33.0-37.0); Mean Corpuscular Hgb 32.3 pg (27.0-31.0); Mean Corpuscular Volume 98.8 fL (81.0-99.0); Mean Platelet Volume 9.8 fL (7.4-10.4); Nucleated Red Blood Cells % 0 %; Platelet Count 194 10^3/uL (130-400); Red Blood Cell Count 3.22 10^6/uL (4.20-5.40); Red Cell Dist. Width 13.7 % (11.5-14.5)
[2024-09-27] MEDS: PRADAXA 150 MG PO ×2 (09:35→19:51)
[2024-09-27 09:55] VITALS: BP 145/78; PULSE 69; O2SAT 96
[2024-09-27 10:27] LABS: Blood Urea Nitrogen 16 mg/dl (7-17); Calcium 8.6 mg/dl (8.4-10.2); Carbon Dioxide 23 mmol/L (22-30); Chloride 107 mmol/L (98-107); Estimated Creatinine Clearance 35 ml/min; Glucose 68 mg/dl (70-99); Potassium 3.5 mmol/L (3.5-5.1); Sodium 140 mmol/L (135-145); eGFR > 60.00
[2024-09-27] MEDS: MIRALAX 17 GRAMS PO (10:55)
--- NOTE | 2024-09-27 14:06 | W.PN.GI.CBS2 ---
Addendum entered and electronically signed by Crystal Damon MD 09/27/24 18:45:
I saw and examined the patient.
The C.O.D. BILLER or PA's note was reviewed and I agree with the note.
Comment: Patient did respond a little to the milk of molasses enema but continues to have discomfort in the rectum.
Did rectal exam, large volume of stool noted.
Digital disimpaction performed and was able to get large amounts of hard stool.
Agree with slow Colyte prep to clear out the colon, will need bowel regimen with MiraLAX and Senokot to be continued after clearing out large volumes of colonic stool.
Will follow
Original Note:
Today's Communication / Plan
-
etiology of diarrhea with concern for overflow with large volume of stool in rectum on imaging with stercoral colitis
currently remains with no rebound, guarding, fever, leukocytosis and appears comfortable in bed
s/p follow up abd film continued increased stool burden-- pt did pass some stool after X ray this am
s/p MOM and mineral oil enema 09/26 and just received another MOM enema now
will give slow colyte prep to cont to clear stool
clear diet til cleared out
remains on Miralax and senna -- will need laxative regiment on discharge and hold all antidiureals meds
s/p ID eval input appreciated
reviewed with nursing staff
support give to patient with anxiety with GI issues
Assessment / Plan
-
Pt is an 84yo with hx PAF on Pradaxa, CHF, HTN, hyperlipidemia, hypothyroidism, prior CVA, [place], pacer, prior CABG, right renal infarct with admission with 2 weeks of diarrhea with crampy abdominal pain. She was on recent abx for UTI. On admission
noted with WBC 6.4 hbg [address] a/p with acute stercoral colitis in rectum with distention and large volume of fecal material, moderate stool in colon and severe diverticulosis. There was also noted acute right pyelonephritis
and pelvic ureteritis with moderate inflammation and small amount of non loculated perinephric fluid and 7.9 mm calculus in right renal pelvis. Also incidental finding of large paraesophageal hernia, severe calcific plaque abdominal aorta, mild to
mod CM, small left effusion and DDD.
02/2022 colonoscopy sorensen- done for anemia diverticulosis, IH
02/2022 EGD sorensen done for anemia normal esophagus, erythema in gastric body, normal duodenum bx neg
per patient ? hx Cologuard also negative report not reviewed
09/27 Abd X ray Redemonstration of large amount of stool in the colon. This includes the rectum, which is distended. This is without significant change. Appearance consistent with fecal impaction.
-diarrhea with concern for acute stercoral colitis on CT with impaction on exam
-anemia with hx chronic anemia
-heme + stool on exam
-acute right pyelonephritis
-recent UTI with abx use
-afib on Pradaxa prior to admission
other med problems:
-CHF
-pacer
-prior [place]
-prior CABG
-Hyperlipidemia
-HTN
-hypothyroidism
-hx CVA
-renal infarct
PLAN:
etiology of diarrhea with concern for overflow with large volume of stool in rectum on imaging with stercoral colitis
currently remains with no rebound, guarding, fever, leukocytosis and appears comfortable in bed
s/p follow up abd film continued increased stool burden-- pt did pass some stool after X ray this am
s/p MOM and mineral oil enema 09/26 and just received another MOM enema now
will give slow colyte prep to cont to clear stool
clear diet til cleared out
remains on Miralax and senna -- will need laxative regiment on discharge and hold all antidiureals meds
s/p ID eval input appreciated
reviewed with nursing staff
support give to patient with anxiety with GI issues
Subjective
Subjective
Date of Service: September 27, 2024
1/9 brown moderate stool, on clear diet pt still anxious with onging GI issues
Objective
Data Reviewed
Laboratory Data:
Laboratory Results
09/27/24 08:10
09/27/24 08:10
Laboratory Results
Total Bilirubin 1.2 mg/dl (0.2-1.3) 09/25/24 07:53
AST 24 U/L (14-36) 09/25/24 07:53
ALT 12 U/L (0-35) 09/25/24 07:53
Alkaline Phosphatase 38 U/L (38-126) 09/25/24 07:53
Vital Signs and I&O:
Vital Signs
Temp Pulse Resp BP Pulse Ox
97.6 F 75 20 129/69 97
09/27/24 07:55 09/27/24 07:55 09/27/24 07:55 09/27/24 07:55 09/27/24 07:55
I&O
09/26/24 09/27/24 09/28/24
06:59 06:59 06:59
Intake Total 0 / 0 480 / 480
Balance 0 / 0 480 / 480
Physical Exam
Physical Exam
HEENT: Anicteric and Moist mucous membranes
Cardiology: Normal Sinus Rhythm
Pulmonary: Clear
GI: Soft, Non Distended and Non Tender
Extremities: No Edema
Neuro: Non Focal
[2024-09-27] MEDS: KCL 270 MEQ IV (14:22)
--- NOTE | 2024-09-27 14:33 | PTCARENOTE ---
Miralax given. Milk and molasses enema given. As per GI starting Golighty 2 Liters. Encouragement given to patient to continue to slowly drink laxative. Patient verbalizes understanding.
[2024-09-27 15:08] VITALS: BP 125/70
[2024-09-27] MEDS: NULYTELY SOLUTION 2 LITERS PO (16:57)
--- NOTE | 2024-09-27 17:21 | CM ---
Alert awake oriented patient who lives with her Raulito who lives in a 2 story home with steps to enter and stair glise bed bathroom. She is independent in activities of daily living.Offered VN she declined.
No adaptive devices
Linda had VN/[facility]
Pharmacy [facility]
PCP Dr Carmichael
PLAN Home no needs
[2024-09-27] MEDS: LIPITOR 40 MG PO (21:22)
[2024-09-27 22:31] VITALS: BP 111/44
[2024-09-28] MEDS: NSS 1000 IV (01:45)
[2024-09-28] MEDS: SYNTHROID 75 MCG PO (05:46)
[2024-09-28 06:00] VITALS: BMI 23.4
[2024-09-28 07:24] LABS: Hematocrit 32.7 % (37.0-47.0); Hemoglobin 11.1 g/dL (12.0-16.0); Mean Corp Hgb Conc. 33.9 g/dL (33.0-37.0); Mean Corpuscular Hgb 32.7 pg (27.0-31.0); Mean Corpuscular Volume 96.5 fL (81.0-99.0); Mean Platelet Volume 9.9 fL (7.4-10.4); Platelet Count 212 10^3/uL (130-400); Red Blood Cell Count 3.39 10^6/uL (4.20-5.40); Red Cell Dist. Width 13.8 % (11.5-14.5); White Blood Cell Count 4.8 10^3/uL (4.8-10.8)
--- NOTE | 2024-09-28 07:26 | W.PN.HOSP.TC ---
Addendum entered and electronically signed by Shreya Hoskins MD 09/28/24 14:08:
I personally performed a history and physical exam of the patient and discussed management with the resident. I reviewed the resident's note and agree with the documented findings and plan of care HPI/CC.
A/P:
# Intermittent overflow diarrhea
# Acute stercoral colitis
Abd/Pelvis CT: Acute stercoral colitis in the rectum which is distended with a large volume of fecal material. Acute right pyelonephritis and a 7.9 mm calculus in the right renal pelvis
C diff antigen positive, toxin negative.
No Abx per ID
Continue bowel regimen, s/p enema, s/p fecal disimpaction by GI
Follow up AXR 09/28 noted interval improvement in the amount of stool within the rectum.
# Non obstructing right kidney stone, incidental right pyelonephritis
Afebrile, WBC within normal limits
pt without urinary symptoms, no Abx per ID
recc outpt urology follow up
# Paroxysmal atrial fibrillation
continue carvedilol and dabigatran
# Hypertension
continue carvedilol
# HFrEF
ECHO (07/04/2023):EF 40-45%. Mild mitral regurgitation. Aortic sclerosis without stenosis. Mild tricuspid regurgitation. Small pericardial effusion
continue carvedilol, home dose furosemide
daily weights
# Hyperlipidemia
continue atorvastatin
# Hypothyroidism
continue levothyroxine
# Iron deficient anemia
continue ferrous sulfate
# Hx CVA
Code Status: Full Code
DVT Prophylaxis: CLEARANCE REP Pradaxa
Original Note:
Today's Communication/Plan
-
Continue bowel regimen
Assessment / Plan
Assessment / Plan
Impression: Patient is [id number] female with past medical history significant for paroxysmal atrial fibrillation, HFrEF, secondary pulmonary arterial hypertension, hyperlipidemia, hypothyroidism, moderate mitral regurgitation and iron deficient
anemia who presented to [facility] ED for evaluation of diarrhea that has been intermittent for several weeks.
#Intermittent nonbloody diarrhea-Acute stercoral colitis
- Abd/Pelvis CT:Acute stercoral colitis in the rectum which is distended with a large volume of fecal material. Acute right pyelonephritis and a 7.9 mm calculus in the right renal pelvis
- C.Diff: Negative
- consult GI, input appreciated
- No antibiotics as of now
- Continue bowel regiment, added miralax standing order with prn
-Continue clear diet
-Stool disimpaction done yesterday by GI
-Xray abd 09/27/2024: large fecal impaction that is not significantly changed from prior
-X-ray abdomen 09/28: Improvement in amount of stool within rectum but moderate to large amount of stool still remains in rest of colon.
-Started on mag citrate
-Dispo likely tomorrow with MiraLAX and Senokot regimen at home and enema if no bowel movement in 2 days
#Non obstructing right kidney stone/incidental right pyelonephritis
- Afebrile, WBC within normal limits
-pt without urinary symptoms
-Abd/Pelvis CT: Acute right pyelonephritis and a 7.9 mm calculus in the right renal pelvis
- Consult ID, input appreciated
- Discontinued IV Zosyn as per ID
- urology outpatient for further care
#Paroxysmal atrial fibrillation
- continue carvedilol, and dabigatran
#Hypertension
- continue carvedilol
#HFrEF
ECHO (07/04/2023):EF 40-45%. Mild mitral regurgitation. Aortic sclerosis without stenosis. Mild tricuspid regurgitation. Small pericardial effusion
- continue carvedilol
- hold furosemide
- daily weights
#Hyperlipidemia
- continue atorvastatin
#Hypothyroidism
- continue levothyroxine
#Iron deficient anemia
- continue ferrous sulfate
#Hx CVA
Code Status: Full Code
DVT Prophylaxis: Pradaxa
Anticipated Discharge: 24 - 48 hours
Subjective/Interval History
-
Date of Service: September 28, 2024
Patient states that she feels better today with less abdominal pain.
Objective Data
-
Labs:
Laboratory Results
09/28/24
06:34
WBC 4.8
Hgb 11.1 L
Hct 32.7 L
Plt Count 212
Sodium Pending
Potassium Pending
Chloride Pending
Carbon Dioxide Pending
BUN Pending
Creatinine Pending
Glucose Pending
Calcium Pending
Vital Signs:
Vital Signs
Temp Pulse Resp BP Pulse Ox
97.8 F 71 16 111/44 95
09/27/24 22:31 09/27/24 22:31 09/27/24 22:31 09/27/24 22:31 09/27/24 22:31
I&O
09/27/24 09/28/24 09/29/24
06:59 06:59 06:59
Intake Total 0 / 0 2470 / 2470
Balance 0 / 0 0 / 2470
Review of Systems
-
All other systems: Reviewed and negative
Physical Exam
-
General: No Apparent Distress
HEENT: Normocephalic
Respiratory: Clear to Auscultation
Cardiac: Regular Rhythm and S1/S2
GI: Soft, Nontender and Nondistended
Musculoskeletal: No Edema
Skin: Warm and Dry
Neuro: Awake, Alert and Oriented
Psych: Calm
[2024-09-28 07:35] VITALS: BP 138/84
[2024-09-28 07:49] LABS: Blood Urea Nitrogen 14 mg/dl (7-17); Calcium 8.7 mg/dl (8.4-10.2); Carbon Dioxide 25 mmol/L (22-30); Chloride 104 mmol/L (98-107); Estimated Creatinine Clearance 35 ml/min; Glucose 93 mg/dl (70-99); Potassium 3.8 mmol/L (3.5-5.1); Sodium 137 mmol/L (135-145); eGFR > 60.00
[2024-09-28] MEDS: LASIX 40 MG PO ×2 (07:57→20:13)
[2024-09-28] MEDS: VITAMIN B-12 1000 MCG PO (07:57)
[2024-09-28] MEDS: PRADAXA 150 MG PO ×2 (07:57→20:13)
[2024-09-28] MEDS: VITAMIN D3 (cholecalciferol) 25 MCG PO (07:57)
[2024-09-28] MEDS: COREG 3.125 MG PO ×2 (07:58→20:13)
[2024-09-28] MEDS: MIRALAX 17 GRAMS PO (07:58)
[2024-09-28] MEDS: SENOKOT-S 1 TABLET PO ×2 (07:58→20:13)
[2024-09-28] MEDS: CITROMA 300 ML PO (08:58)
[2024-09-28 09:00] VITALS: BP 142/81; PULSE 71
--- NOTE | 2024-09-28 09:34 | W.PN.GI.CBS2 ---
Today's Communication / Plan
-
Give mag citrate. Awaiting AM abdominal xray
Assessment / Plan
-
Pt is an 84yo with hx PAF on Pradaxa, CHF, HTN, hyperlipidemia, hypothyroidism, prior CVA, [place], pacer, prior CABG, right renal infarct with admission with 2 weeks of diarrhea with crampy abdominal pain. She was on recent abx for UTI. On admission
noted with WBC 6.4 hbg [address] a/p with acute stercoral colitis in rectum with distention and large volume of fecal material, moderate stool in colon and severe diverticulosis. There was also noted acute right pyelonephritis
and pelvic ureteritis with moderate inflammation and small amount of non loculated perinephric fluid and 7.9 mm calculus in right renal pelvis. Also incidental finding of large paraesophageal hernia, severe calcific plaque abdominal aorta, mild to
mod CM, small left effusion and DDD.
02/2022 colonoscopy sorensen- done for anemia diverticulosis, IH
02/2022 EGD sorensen done for anemia normal esophagus, erythema in gastric body, normal duodenum bx neg
per patient ? hx Cologuard also negative report not reviewed
-diarrhea with concern for acute stercoral colitis on CT with impaction on exam
-anemia with hx chronic anemia
-heme + stool on exam
-acute right pyelonephritis
-recent UTI with abx use
-afib on Pradaxa prior to admission
09/27 Abd X ray Redemonstration of large amount of stool in the colon. This includes the rectum, which is distended. This is without significant change. Appearance consistent with fecal impaction.
A/P: Overall clinical picture consistent with constipation with overflow diarrhea c/b stercoral colitis and fecal impaction.
-s/p disimpaction and MoM enema with robust response
-given Nulytely overnight, little output, however, patient drank very little of it
-will try magnesium citrate to see if she tolerates this better, in addition to miralax +Senokot
-await abdominal xray to ensure she is no longer impacted given only minimal output overnight
Subjective
Subjective
Date of Service: September 28, 2024
Patient was manually disimpacted by Dr. Damon yesterday at the bedside with large amount of stool evacuated. She was given a colyte prep overnight, however drank very little of it per RN. Small amounts of stool overnight, AM abdominal xray pending.
Objective
Data Reviewed
Laboratory Data:
Laboratory Results
09/28/24 06:34
09/28/24 06:34
Laboratory Results
Total Bilirubin 1.2 mg/dl (0.2-1.3) 09/25/24 07:53
AST 24 U/L (14-36) 09/25/24 07:53
ALT 12 U/L (0-35) 09/25/24 07:53
Alkaline Phosphatase 38 U/L (38-126) 09/25/24 07:53
Vital Signs and I&O:
Vital Signs
Temp Pulse Resp BP Pulse Ox
97.8 F 72 18 138/84 95
09/28/24 07:35 09/28/24 07:35 09/28/24 07:35 09/28/24 07:35 09/28/24 07:35
I&O
09/27/24 09/28/24 09/29/24
06:59 06:59 06:59
Intake Total 0 / 0 0 / 0
Balance 0 / 0 0 / 2470
Physical Exam
Physical Exam
HEENT: Anicteric and Moist mucous membranes
Cardiology: Normal Sinus Rhythm
Pulmonary: Clear
GI: Soft, Non Distended and Non Tender
Extremities: No Edema
Neuro: Non Focal
--- NOTE | 2024-09-28 13:17 | PTCARENOTE ---
Patient given miralax, sennakot, one large cup of golytely, and mag citrate as ordered. Patient with large soft semi-formed stools at this time. Brown in color. Patient remains on clear liquids. Abdominal xray completed this morning wit some
improvement but remains with moderate to large ammount of stool in colon.
--- NOTE | 2024-09-28 13:25 | W.PN.UPDATE ---
Update Note
Progress Note Update
Improved with magnesium citrate. Abdominal xray shows interval improvement in the amount of stool within the rectum with moderate to large amount of stool in the rest of the colon.
Recommendations:
Continue Miralax 17 g daily and senokot 2 tabs qHS. Can uptitrate miralax as needed
If no BM after 2 days, give MoM enema
GI will sign off, please call with questions.
[2024-09-28 15:28] VITALS: BP 143/78
--- NOTE | 2024-09-28 17:35 | CM ---
Spoke with pt in room.
She said her Raulito [facility] home.
IMM reviewed. IMM signed on chart.
Offered VN she declined.
PLAN Home no needs
[2024-09-28] MEDS: LIPITOR 40 MG PO (21:29)
[2024-09-28 23:59] VITALS: BP 135/69
[2024-09-29 06:00] VITALS: BMI 23.1
[2024-09-29] MEDS: SYNTHROID 75 MCG PO (06:14)
[2024-09-29 06:31] LABS: % Basophils 0.5 % (0-2); % Eosinophils 1.9 % (0-6); % Immature Granulocytes 0.4 % (0-0.5); % Lymphocytes 9.5 % (20.5-51.1); % Neutrophils 76.7 % (42.2-75.2); Absolute Eosinophils 0.1 10^3/uL (0-0.7); Absolute Lymphocytes 0.5 10^3/uL (1.2-3.4); Absolute Monocytes 0.6 10^3/uL (0.1-0.6); Absolute Neutrophils 4.3 10^3/uL (1.4-6.5); Hematocrit 32.7 % (37.0-47.0); Mean Corp Hgb Conc. 33.6 g/dL (33.0-37.0); Mean Corpuscular Hgb 32.1 pg (27.0-31.0); Mean Corpuscular Volume 95.3 fL (81.0-99.0); Mean Platelet Volume 9.8 fL (7.4-10.4); Nucleated Red Blood Cells % 0 %; Platelet Count 209 10^3/uL (130-400); Red Blood Cell Count 3.43 10^6/uL (4.20-5.40); Red Cell Dist. Width 13.4 % (11.5-14.5); White Blood Cell Count 5.7 10^3/uL (4.8-10.8)
[2024-09-29 07:20] LABS: Blood Urea Nitrogen 10 mg/dl (7-17); Calcium 8.8 mg/dl (8.4-10.2); Carbon Dioxide 25 mmol/L (22-30); Chloride 104 mmol/L (98-107); Estimated Creatinine Clearance 45 ml/min; Glucose 97 mg/dl (70-99); Potassium 3.3 mmol/L (3.5-5.1); Sodium 137 mmol/L (135-145); eGFR > 60.00
[2024-09-29 07:55] VITALS: BP 138/80
[2024-09-29] MEDS: PRADAXA 150 MG PO (09:20)
[2024-09-29] MEDS: LASIX 40 MG PO (09:20)
[2024-09-29] MEDS: COREG 3.125 MG PO (09:20)
[2024-09-29] MEDS: FLUSH (NSS) 1 FLUSH IV (09:21)
[2024-09-29] MEDS: VITAMIN B-12 1000 MCG PO (09:21)
[2024-09-29] MEDS: VITAMIN D3 (cholecalciferol) 25 MCG PO (09:21)
--- NOTE | 2024-09-29 13:07 | CM ---
Addendum entered by Carolyn Roque 09/29/24 15:23:
Plan: Discharge to home today with [id number] health [facility]
will transport home
Original Note:
Home Health for PT recommended; Discussed with via phone and is agreeable;
Referral sent to [id number] via [facility]
[2024-09-29] MEDS: MIRALAX PO (14:55)
[2024-09-29] MEDS: SENOKOT-S PO (14:55)
--- NOTE | 2024-09-29 14:55 | W.PN.HOSP.TC ---
Today's Communication/Plan
-
d/c if tolerates diet
Assessment / Plan
Assessment / Plan
pt is an 84 year old female
Intermittent overflow diarrhea from Acute stercoral colitis--had BMs--apprec GI--s/p fecal disimpaction by GI--cont bowel regimen--advance diet
Non obstructing right kidney stone, incidental right pyelonephritis--Afebrile, WBC within normal limits--outpt uro followup
Paroxysmal atrial fibrillation--continue carvedilol and dabigatran
Essential Hypertension--continue carvedilol
HFrEF--ECHO (07/04/2023):EF 40-45%. Mild mitral regurgitation. Aortic sclerosis without stenosis. Mild tricuspid regurgitation. Small pericardial effusion--continue carvedilol, home dose furosemide--daily weights
Hyperlipidemia-continue atorvastatin
Hypothyroidism--continue levothyroxine
Iron deficient anemia--continue ferrous sulfate
Hx CVA
Code Status: Full Code
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
ok for d/c
Anticipated Discharge: Today
Subjective/Interval History
-
Date of Service: September 29, 2024
pt without c/o--wants to eat
Objective Data
-
Labs:
Laboratory Results
09/29/24
06:11
WBC 5.7
Hgb 11.0 L
Hct 32.7 L
Plt Count 209
Sodium 137
Potassium 3.3 L
Chloride 104
Carbon Dioxide 25
BUN 10
Creatinine 0.7
Glucose 97
Calcium 8.8
Vital Signs:
max temp for 24 hours
09/28/24
15:28
Temp 97.7 F
Vital Signs
Temp Pulse Resp BP Pulse Ox
97.4 F 71 16 138/80 94
09/29/24 07:55 09/29/24 09:20 09/29/24 07:55 09/29/24 09:20 09/29/24 09:00
I&O
09/28/24 09/29/24 09/30/24
06:59 06:59 06:59
Intake Total 2470 / 2470 720 / 720
Output Total 200 / 200
Balance 2470 / 2470 520 / 520
Review of Systems
-
All other systems: Reviewed and negative
Physical Exam
-
General: Well Developed and Well Nourished
HEENT: Normocephalic and Atraumatic
Respiratory: Clear to Auscultation; Negative Wheezes or Rhonchi
Cardiac: Regular Rhythm and S1/S2; Negative Murmur
GI: Soft, Nontender, Nondistended and Normal Bowel Sounds
Musculoskeletal: No Clubbing, No Cyanosis and No Edema
Neuro: Awake and Alert
[2024-09-29] MEDS: KCL 40 MEQ PO (15:09)
[2024-09-29 15:49] VITALS: BP 131/72
--- NOTE | 2024-09-29 16:44 | W.DCSUMMARY ---
Discharge Summary
Discharge Data
Date of Admission: 09/25/24
Date of Discharge: 09/29/24
-
Pending Results: No
Hospital Course
Primary care physician : Yanet Carmichael
Principal Discharge diagnosis : Intermittent overflow diarrhea from acute stercoral colitis
Chronic Discharge diagnosis : Nonobstructing right renal stone with incidental right pyelonephritis, paroxysmal atrial fibrillation, essential hypertension, heart failure with reduced ejection fraction without exacerbation, hyperlipidemia,
hypothyroidism, iron deficiency anemia, history of stroke
Hospital Course : Patient is an 84-year-old female who presented with diarrhea that has been several weeks in duration. She denied any other associated symptoms. She denied any abdominal discomfort. Workup in the emergency department found her to
have acute stercoral colitis with incidental acute right pyelonephritis. Patient was admitted.
Problem #1: Intermittent overflow diarrhea from acute stercoral colitis. Patient was admitted and seen in consultation by GI. She was disimpacted and started on a bowel regimen. She has had multiple large bowel movements since. Her diet has been
advanced and she is tolerating that at this time. She should follow-up with GI as an outpatient.
Problem #2: All other medical issues. These include Nonobstructing right renal stone with incidental right pyelonephritis, paroxysmal atrial fibrillation, essential hypertension, heart failure with reduced ejection fraction without exacerbation,
hyperlipidemia, hypothyroidism, iron deficiency anemia, history of stroke. These medical issues were stable during her hospitalization. Medications were continued as able. In regards to the nonobstructing right renal stone, it is recommended that
the patient follow-up with outpatient urology. ID was consulted but the patient clinically does not have pyelonephritis. Antibiotics that were started were stopped.
Patient is stable for discharge home at this time. at bedside and is agreeable to take the patient home. If there are any questions regarding this dictation or her hospital stay, please do not hesitate to call. Our office number is
[phone].
Important imaging findings :
ABDOMINAL/PELVIC CT SCAN IMPRESSION:
1. ACUTE STERCORAL COLITIS in the rectum which is distended with a large volume of fecal material. Moderate amount of fecal material throughout the colon. Severe diffuse colonic diverticulosis.
2. ACUTE RIGHT PYELONEPHRITIS and pelvic ureteritis with a delayed and striated renal nephrogram, moderate perinephric and peripelvic inflammation, a small amount of nonloculated perinephric fluid, and a
7.9 mm calculus in the right renal pelvis.
3. Large paraesophageal hiatal hernia.
4. Severe calcific atherosclerotic plaque in the abdominal aorta.
5. Mild to moderate cardiomegaly.
6. Small left pleural effusion.
7. Severe facet joint arthrosis and moderate multilevel discogenic degenerative disease in the lumbar spine.
Discharge Plan
-
Patient Disposition: Home with Home Care
Discharge Diagnosis/Procedures: Intermittent overflow diarrhea from acute stercoral colitis, nonobstructing right kidney stone with incidental pyelonephritis, paroxysmal atrial fibrillation, essential hypertension, heart failure with reduced
ejection fraction without exacerbation, hyperlipidemia, hypothyroidism, iron deficiency anemia, history of stroke
Condition: Good
Diet: 2 Gram Sodium
Activity: As tolerated
Driving Restrictions: As prior to admission
Bathing Restrictions: None
Other Services: VN, PT and OT
Referrals:
Luke Sorensen MD [Active] -
(call to schedule follow up with Dr. sorensen or GUERDA for constipation to continue management
[phone] ext [phone])
Adin Hoyt MD [Active] - (or usual urologist for kidney stone)
Yanet Carmichael MD [Family Provider] - in one week
Prescriptions:
New
polyethylene glycol 3350 17 gram Powder In Packet
17 g PO DAILY Qty: 30 0RF
sennosides-docusate sodium 8.6-50 mg Tablet
2 tab PO HS Qty: 60 0RF
Continued
atorvastatin 40 MG tablet
40 mg PO HS
carvedilol 3.125 MG tablet
3.125 mg PO BID
levothyroxine 75 mcg Tablet
75 mcg PO DAILY
furosemide 40 mg tablet
40 mg PO BID
cholecalciferol (vitamin D3) [Vitamin D3] 25 mcg (1,000 unit) Capsule
25 mcg PO DAILY
ferrous sulfate 325 mg (65 mg iron) Tablet
325 mg PO DAILY
dabigatran etexilate [Pradaxa] 150 mg capsule
150 mg PO BID
acetaminophen [Tylenol Extra Strength] 500 mg Tablet
1,000 mg PO Q6HPRN PRN (Reason: mild pain)
cyanocobalamin (vitamin B-12) 1,000 mcg Tablet
1,000 mcg PO DAILY Qty: 0 0RF
Discontinued
loperamide 2 mg Tablet
2 mg PO DAILYPRN PRN (Reason: dairrhea)
Discharge Orders:
Discharge Patient (As Directed); Ordered 09/29/24
Ordered By: Cherelle Vaughn
Discharge Date and Time
Print Language: FAROESE
--- NOTE | 2024-09-29 17:39 | PTCARENOTE ---
pt tolerated regular diet without any difficulty. No abdominal pain. No N/V. Will proceed with discharge.
== END 2024-09-29 18:52 | disposition home health service (06) | DRG 392 ==
LOC: 4 EAST ACU 15:39
PROVIDERS: Nurse Practitioner Family; Student in an Organized Health Care Education/Training Program; ADMITTING PHYSICIAN Internal Medicine; ATTENDING PHYSICIAN Internal Medicine; CONSULT PHYSICIAN Internal Medicine Gastroenterology; CONSULT PHYSICIAN Internal Medicine Infectious Disease; EMERGENCY PHYSICIAN Emergency Medicine; FAMILY PHYSICIAN Family Medicine
DX: K52.89 Other specified noninfective gastroenteritis and colitis (principal); I50.22 Chronic systolic (congestive) heart failure; N10 Acute pyelonephritis; Z87.891 Personal history of nicotine dependence; I11.0 Hypertensive heart disease with heart failure; E03.9 Hypothyroidism, unspecified; I48.0 Paroxysmal atrial fibrillation; Z79.01 Long term (current) use of anticoagulants; N20.0 Calculus of kidney; E78.00 Pure hypercholesterolemia, unspecified; D50.9 Iron deficiency anemia, unspecified; Z86.73 Personal history of transient ischemic attack (TIA), and cerebral infarction without residual deficits; K44.9 Diaphragmatic hernia without obstruction or gangrene; M47.819 Spondylosis without myelopathy or radiculopathy, site unspecified
CPT/HCPCS: 74018; 74177; 80048; 80053; 81003; 81015; 85025; 85027; 87045; 87046; 87086; 87324; 87427; 87449; 87798; 97116; 97163; 97167; 97535; Q9967

== ENCOUNTER → 2025-01-24 09:06 | Outpatient (REF) | payer MEDICARE, SELFPAY ==
[2025-01-24 17:12] LABS: Urine Albumin 3+ (Neg - Trace); Urine Bilirubin Negative (Negative); Urine Character Slightly Cloudy (Clear); Urine Color Yellow; Urine Glucose Negative (Negative); Urine Ketone Negative (Negative); Urine Leukocyte 2+ (Negative); Urine Nitrite Negative (Negative); Urine Occult Blood 4+ (Negative); Urine Urobilinogen Negative (Neg - 1+)
[2025-01-24 17:42] LABS: Urine Bacteria Few (Negative); Urine Red Blood Cell 50-60 /HPF (0-2); Urine White Cell >100 /HPF (0-5)
[2025-01-24 18:18] LABS: ALT (SGPT) 20 U/L (0-35); AST (SGOT) 27 U/L (14-36); Albumin 3.9 g/dl (3.5-5.0); Alkaline Phosphatase 36 U/L (38-126); Blood Urea Nitrogen 31 mg/dl (7-17); Calcium 9.4 mg/dl (8.4-10.2); Carbon Dioxide 29 mmol/L (22-30); Chloride 98 mmol/L (98-107); Glucose 95 mg/dl (70-99); Iron 74 ug/dl (37-170); Potassium 3.9 mmol/L (3.5-5.1); Sodium 138 mmol/L (135-145); Total Bilirubin 1.8 mg/dl (0.2-1.3); Total Protein 6.6 g/dl (6.3-8.2); eGFR 49.55
[2025-01-24 18:27] LABS: Percent Saturation 17 % (20-50); Total Iron Binding Capacity 419 ug/dl (265-497)
[2025-01-24 18:37] LABS: % Basophils 0.9 % (0-2); % Eosinophils 1.5 % (0-6); % Immature Granulocytes 0.2 % (0-0.5); % Lymphocytes 10.7 % (20.5-51.1); % Monocytes 10.1 % (1.7-9.3); % Neutrophils 76.6 % (42.2-75.2); Absolute Basophils 0.1 10^3/uL (0-0.2); Absolute Eosinophils 0.1 10^3/uL (0-0.7); Absolute Lymphocytes 0.6 10^3/uL (1.2-3.4); Absolute Monocytes 0.6 10^3/uL (0.1-0.6); Absolute Neutrophils 4.2 10^3/uL (1.4-6.5); Hematocrit 38.5 % (37.0-47.0); Hemoglobin 12.2 g/dL (12.0-16.0); Mean Corp Hgb Conc. 31.7 g/dL (33.0-37.0); Mean Corpuscular Hgb 32.4 pg (27.0-31.0); Mean Corpuscular Volume 102.1 fL (81.0-99.0); Mean Platelet Volume 10.3 fL (7.4-10.4); Nucleated Red Blood Cells % 0 %; Platelet Count 216 10^3/uL (130-400); Red Blood Cell Count 3.77 10^6/uL (4.20-5.40); Red Cell Dist. Width 14.6 % (11.5-14.5); White Blood Cell Count 5.4 10^3/uL (4.8-10.8)
[2025-01-24 18:50] LABS: Free T4 2.53 ng/dl (0.78-2.19); Vitamin D, 25-OH*** 28.5 ng/mL (30-80)
[2025-01-24 19:03] LABS: TSH 0.98 uIU/ml (0.47-4.68)
[2025-01-24 19:07] LABS: Ferritin 38.5 ng/ml (11.1-264.0)
[2025-01-24 19:24] LABS: Vitamin B12 > 1000 pg/ml (239-931)
[2025-01-24 20:39] LABS: Folate > 20.0 ng/ml (2.76-20)
[2025-01-25 12:18] LABS: Glycohemoglobin (HgbA1c) 5.7 % (4.0-5.6)
== END ==
LOC: CLAB 09:06
PROVIDERS: ATTENDING PHYSICIAN Family Medicine
DX: E55.9 Vitamin D deficiency, unspecified (principal); R73.03 Prediabetes; E53.8 Deficiency of other specified B group vitamins; D50.8 Other iron deficiency anemias; E03.9 Hypothyroidism, unspecified; Z87.440 Personal history of urinary (tract) infections
CPT/HCPCS: 36415; 80053; 81003; 81015; 82306; 82607; 82728; 82746; 83036; 83540; 83550; 84439; 84443; 85025; 87086

== ENCOUNTER 2025-02-04 18:48 | Observation (INO) | payer MEDICARE, SELFPAY ==
[2025-02-04] VITALS (9 sets, daily range): BP systolic 116–145; BP diastolic 49–80; BMI 25.0; BMI 23.4
[2025-02-04 12:39] LABS: % Basophils 0.9 % (0-2); % Eosinophils 1.4 % (0-6); % Immature Granulocytes 0.4 % (0-0.5); % Monocytes 13.3 % (1.7-9.3); Absolute Basophils 0.1 10^3/uL (0-0.2); Absolute Eosinophils 0.1 10^3/uL (0-0.7); Absolute Lymphocytes 0.6 10^3/uL (1.2-3.4); Absolute Monocytes 0.8 10^3/uL (0.1-0.6); Absolute Neutrophils 4.1 10^3/uL (1.4-6.5); Hematocrit 36.7 % (37.0-47.0); Hemoglobin 12.1 g/dL (12.0-16.0); Mean Corpuscular Hgb 32.1 pg (27.0-31.0); Mean Corpuscular Volume 97.3 fL (81.0-99.0); Mean Platelet Volume 9.8 fL (7.4-10.4); Nucleated Red Blood Cells % 0 %; Platelet Count 217 10^3/uL (130-400); Red Blood Cell Count 3.77 10^6/uL (4.20-5.40); Red Cell Dist. Width 14.9 % (11.5-14.5); White Blood Cell Count 5.7 10^3/uL (4.8-10.8)
[2025-02-04 13:14] LABS: ALT (SGPT) 17 U/L (0-35); AST (SGOT) 32 U/L (14-36); Alkaline Phosphatase 33 U/L (38-126); Blood Urea Nitrogen 31 mg/dl (7-17); Calcium 9.4 mg/dl (8.4-10.2); Carbon Dioxide 24 mmol/L (22-30); Chloride 105 mmol/L (98-107); Glucose 100 mg/dl (70-99); Potassium 4.4 mmol/L (3.5-5.1); Sodium 138 mmol/L (135-145); Total Bilirubin 1.2 mg/dl (0.2-1.3); Total Protein 6.6 g/dl (6.3-8.2); eGFR 55.55
--- NOTE | 2025-02-04 15:13 | ED.GENMED ---
History of Present Illness
General
Chief Complaint: Weakness
Source: patient
Time Seen by Provider: 02/04/25 14:44
History of Present Illness
History of Present Illness:
84-year-old female presents emergency room complaining of generalized weakness, difficulty ambulating. Patient has experiencing the symptoms for the last couple weeks. She feels like she just cannot get her legs to move the way she wants them to.
She typically ambulates with a walker but can do so in her opinion briskly. Today she states she is moving very slowly and she must hold onto something to prevent herself from falling down. No fever or chills. Patient states she was treated for
urinary tract infection over the past week or so but does not know the name of the antibiotic. No other new medications. She denies chest pain, shortness of breath, abdominal pain. She has chronic constipation which has been adequately controlled
with the use of Senokot and occasional MiraLAX.
Past History
Past History
ED Past Medical History: Arrthythmia (Atrial fibrillation), CAD, CHF, CVA (2006, 2016, 2019), HTN, Hypercholesterolemia, [place], Hypothyroidism, Psychiatric (Depression), Other (Right kidney infarction, vitamin D deficiency, osteopenia, Hemorrhoids,
Colitis, Anemia, ) and Other (Vertigo, iron deficiency anemia); Negative NIDDM (Prediabetes)
ED Past Surgical History: Cardiac (Pacemaker, CABG), Gynecological ( Hysterectomy and Oophorectomy one side), Orthopedic (left hip fracture with repair) and Other (hernia repair)
Social History
Tobacco: Former smoker
Alcohol: Daily
Drug: None
Personal:
Living: with family
Employment: Retired
Family History
Family History: Other (Reviewed and Noncontributory)
Phy Exam
Physical Exam
Physical Exam:
General: Awake, Alert, Oriented X3. No acute distress.
Vitals: unremarkable
Head: Atraumatic
Eyes: Pupils equal, EOMI
Throat: Airway intact, no exudates
Neck: Trachea midline
Lungs: Clear and equal b/l
Heart: Regular rate, no murmurs
Abd: Soft, Nontender, No pulsatile mass
Back: No CVA tender
Neuro: Cranial nerves intact, muscle strength equal bilaterally, cerebellar exam normal. Perhaps mild cogwheeling b/l upper ext.
Skin: Warm, dry, no rash
Extremities: pulses equal b/l, 1+ edema bilaterally, left somewhat greater than right. Left leg is abnormally internally rotated which patient states is secondary to her previous hip fracture.
Course
Orders/Labs/Results
Orders:
Orders
02/04/25 12:30
Complete Blood Count/With Diff Urgent
Comprehensive Metabolic Panel Urgent
TSH Reflex To Free T4 Urgent
Comment: ADD ON
02/04/25 15:10
CT Head W/o Iv Contrast Urgent
Comment:
Reason For Exam: weakness, ambulatory dysfx
02/04/25 15:17
Urinalysis Reflex To Culture Urgent
Date Specimen was Collected: 02/04/25
Time Specimen was Collected: 15:12
Urine Microscopic Reflex Cult Urgent
Urine Culture Urgent
KHUSHBOO Source: U
Specimen Description:
Date Specimen was Collected: 02/04/25
Time Specimen was Collected: 15:12
02/04/25 18:21
Add On- LAB Routine
Tests Added?: TSH w/Reflex
02/04/25 18:22
Admit/Transfer Patient As Directed
Co-Sign Provider:
Level of Care: Observation services
Assign to:: Medical/Surgical
Physician / Group: Luis Fernando
Diagnosis: Ambulatory Dysfunction
PRN Pain Medication Management As Directed
May give lesser potent ordered pain med per pt: Yes
preference::
Protocol:: Medication orders for pain may be administered in a
manner that supports deferring to patient preference
when the pt is:
- Requesting an ordered lesser potent pain medication.
Least to most potent pain medications are defined
as: acetaminophen < NSAID < tramadol < opioids
(morphine, oxycodone, hydromorphone).
- Requesting a lesser dose of the same medication IF
ORDERED.
- Requesting a less intrusive route of administration
if both routes are prescribed by the provider (PO <
IV).
02/04/25 18:23
Code Status As Directed
Resuscitation Status: Full Code
Abnormal Lab Results
02/04/25 02/04/25
12:30 15:17
RBC 3.77 L 10^6/uL
(4.20-5.40)
Hct 36.7 L %
(37.0-47.0)
MCH 32.1 H pg
(27.0-31.0)
RDW 14.9 H %
(11.5-14.5)
Absolute Lymphs (auto) 0.6 L 10^3/uL
(1.2-3.4)
Absolute Monos (auto) 0.8 H 10^3/uL
(0.1-0.6)
Lymphocytes % 11.0 L %
(20.5-51.1)
Monocytes % 13.3 H %
(1.7-9.3)
BUN 31 H mg/dl
(7-17)
Glucose 100 H mg/dl
(70-99)
Alkaline Phosphatase 33 L U/L
(38-126)
Ur Occult Blood Reflex 4+ A
(Negative)
Leukocyte Esterase Rfl 1+ A
(Negative)
Urine RBC 70-80 A /HPF
(0-2)
Urine Bacteria (Reflex) Few A
(Negative)
Urine Albumin (Reflex) 2+ A
(Neg - Trace)
02/04/25 12:30
02/04/25 12:30
Vital Signs
Initial and Last Documented VS:
Initial Vital Signs
Temp Pulse Resp BP Pulse Ox
97.9 F 74 16 132/75 97
02/04/25 12:24 02/04/25 12:24 02/04/25 12:24 02/04/25 12:24 02/04/25 12:24
Last Documented Vital Signs
Temp Pulse Resp BP Pulse Ox
97.9 F 70 16 118/72 96
02/04/25 12:24 02/04/25 17:58 02/04/25 17:58 02/04/25 19:00 02/04/25 17:03
MDM/Problems Addressed
Differential Diagnosis Includes:
CVA, electrolyte abnormality such as hyponatremia, UTI, CVA, Parkinson's disease
MDM/Problems Addressed:
Patient presents with difficulty ambulating. She states her legs just will not do what she wants to do. Her legs to support her weight at least for a while but rather she just cannot make her feet move forward more than a couple inches at a time
resulting in a shuffling gait which goes almost nowhere. denies any previous diagnosis of Parkinson's disease. He cannot recall her ever seeing a neurologist. He does endorse vivid dreams and perhaps some hallucinations recently. I do
send some mild cogwheeling with flexion and extension of the upper extremities. Head CT shows no acute abnormalities though there are age-related changes. Labs are relatively unremarkable. BUN and creatinine appears to be at her baseline. It
would seem that the patient has some sort of other neurologic issue perhaps Parkinson's. patient is unsafe to be discharged and I feel requires hospitalization for further workup of this acute to subacute onset of inability to ambulate.
Chronic conditions affecting care: HTN, Arrhythmia (Atrial fibrillation) and Other (CHF)
*Radiology
Radiology exam reviewed: radiology read reviewed
*Pulse Oximetry
Patient hypoxic: no
*Critical Care Note
Total Time (30-74mins, 75-104mins- exclusive of procedures): Not Applicable
ED Attending Note
-
Portions of this chart may have been created with voice recognition software.� Occasional wrong word or��sound alike� substitutions may have occurred due to the inherent limitations of voice recognition software.
Discharge Plan
Departure
Patient Disposition: Admit
Date of Disposition: 02/04/25
Time of Disposition: 18:15
Admit to: Med/Surg
Presentation/result/management discussed w/ accepting MD/DO: Hospitalist
Condition: Fair
Discharge Problem:
Acute confusion, Ambulatory dysfunction
Interventions
Interventions:
*Risk Screen - Suicide Last Done: 02/04/25 12:26
*General Assessment Last Done: 02/04/25 15:06
*Neglect/Abuse Screening Last Done: 02/04/25 12:26
*ED- Fall Risk Assessment Last Done: 02/04/25 15:06
*ED COVID-19 Vaccine History Last Done: 02/04/25 15:06
ED- Cardiac Assessment Last Done: 02/04/25 15:06
ED- Neurological Assessment Last Done: 02/04/25 15:06
ED- Pulmonary Assessment Last Done: 02/04/25 15:06
[2025-02-04 16:14] LABS: Urine Albumin 2+ (Neg - Trace); Urine Bilirubin Negative (Negative); Urine Character Cloudy (Clear); Urine Color Red; Urine Glucose Negative (Negative); Urine Ketone Negative (Negative); Urine Leukocyte 1+ (Negative); Urine Nitrite Negative (Negative); Urine Occult Blood 4+ (Negative); Urine Urobilinogen Negative (Neg - 1+)
[2025-02-04 17:00] LABS: Urine Bacteria Few (Negative); Urine Red Blood Cell 70-80 /HPF (0-2); Urine Squamous Cell 0-2 /LPF (Few); Urine White Cell 0-2 /HPF (0-5)
--- NOTE | 2025-02-04 18:03 | HPS.HSE ---
Family Physician
-
Family Physician: Yanet Carmichael
Chief Complaint
-
Generalized Weakness
History of Present Illness
Patient is an 84 y/o female past medical history of ASCVD, CHF, A-fib, and Hypothyroidism who presents with generalized weakness. Patient completed a coarse of nitrofurantoin for a urinary tract infection last week. She reports prior to the
nitrofurantoin she experiencing dysuria which has now resolved. Over the past week patient reports increasing generalized weakness. Today she felt like she could seed cone picker her feet prompting to call EMS to bring her to the emergency
department. Patient reports legs cramps particularly at night for the past week. Patient uses a walker at baseline.
Medical History
Past Medical History
Past Medical History: Reports Other
Additional Past Medical History:
CVA x 3 - s/p tPA and thrombectomy
Coronary Artery Disease s/p CABG
Persistent Atrial Fibrillation
Complete Heart Block s/p Permanent Pacemaker
Chronic HFrEF
Hypertension
Hypothyroidism
Pulmonary Hypertension
Pericardial Effusion
Chronic Iron Deficiency Anemia
Past Surgical History: Reports Other
Additional Past Surgical History:
CABG
PPM Placement
Left Hip ORIF
Pericardiocentesis
IAT for CVA
Social History
Tobacco: Non-smoker
Alcohol: Daily (1 glass wine daily)
Drug: None
Family History
Family History: Not pertinent
Allergies / Home Medications
Allergies reflects when Allergies were last updated in [employer].
Home Medications with original date entered in [employer]
Allergy/Medication List:
Allergies
Allergy/AdvReac Type Severity Reaction Status Date / Time
adhesive tape Allergy Itching Verified 09/25/24 06:58
bacitracin Allergy Rash Verified 09/25/24 06:58
dapagliflozin [From Farxiga] Allergy UTI,HYPERKA Verified 09/25/24 15:05
LEMIA
latex Allergy Rash Verified 09/25/24 06:58
neomycin Allergy Rash Verified 09/25/24 06:58
polymyxin B Allergy Rash Verified 09/25/24 06:58
pramoxine Allergy Rash Verified 09/25/24 06:58
Home Medications
atorvastatin 40 mg tablet 40 mg PO HS High cholesterol 01/13/21
carvedilol 3.125 mg tablet 3.125 mg PO BID Heart Failure 01/13/21
furosemide 40 mg tablet 40 mg PO BID Fluid Retention/Swelling 08/25/23
levothyroxine 75 mcg tablet 75 mcg PO DAILY Thyroid 08/25/23
cholecalciferol (vitamin D3) 25 mcg (1,000 unit) capsule (Vitamin D3) 25 mcg PO DAILY Supplement 08/27/23
ferrous sulfate 325 mg (65 mg iron) tablet 325 mg PO DAILY Supplement 08/27/23
dabigatran etexilate 150 mg capsule (Pradaxa) 150 mg PO BID Blood Clot Prevention/Tx 09/13/23
acetaminophen 500 mg tablet (Tylenol Extra Strength) 1,000 mg PO Q6HPRN PRN mild pain 03/08/24
sennosides 8.6 mg-docusate sodium 50 mg tablet 2 tab PO HS Constipation #60 tabs 09/28/24
cyanocobalamin (vitamin B-12) 1,000 mcg tablet 1,000 mcg PO DAILY Supplement #0 tabs 09/29/24
polyethylene glycol 3350 17 gram oral powder packet 8.5 g PO DAILY Constipation 02/04/25
Review of Systems
-
A 12 point ROS was completed and negative except as noted: Yes
Constitutional: Denies Fever or Chills
Respiratory: Reports Cough (Slight - notes they both had upper respiratory infections recently) and Trouble Breathing (Occasionally with exertion, but not worsen than baseline)
Cardiac: Denies Chest Pain or Palpitations
Abdomen/GI: Denies Abdominal Pain, Nausea, Vomiting, Diarrhea, Constipated or Anorexia
: Denies Dysuria or Frequency
Musculoskeletal: Denies Edema
Neurological: Reports Weakness; Denies Numbness
Psych: Denies Depression
Physical Exam
Vital Signs
Vital Signs
Temp Pulse Resp BP Pulse Ox
97.9 F 70 16 134/74 98
02/04/25 12:24 02/04/25 17:58 02/04/25 17:58 02/04/25 17:00 02/04/25 17:00
Physical Exam
General: Comfortable and Conversant
HEENT: Anicteric and Moist mucous membranes
Respiratory: Clear and Non Labored Respirations
Cardiac: S1/S2 and Irregular Rhythm; No Tachycardia
GI: Soft and Non Tender
Rectal: Deferred by Provider
Musculoskeletal: No Clubbing, No Cyanosis and No Edema
Skin: Warm and Dry
Neuro: Awake, Alert, Oriented, No Motor Deficits and Other (Shuffling gait noted by ED staff when ambulating to the bathroom)
Psych: Other (Flat Affect)
Laboratory Results
-
02/04/25 12:30
02/04/25 12:30
Laboratory Results
Total Bilirubin 1.2 mg/dl (0.2-1.3) 02/04/25 12:30
AST 32 U/L (14-36) 02/04/25 12:30
ALT 17 U/L (0-35) 02/04/25 12:30
Alkaline Phosphatase 33 U/L (38-126) L 02/04/25 12:30
Data Reviewed
-
CT Scan: Report Reviewed by me
Lab Data: Labs Reviewed by me
Impression/Plan
-
Generalized Weakness / Ambulatory Dysfunction
-Clinical history suggestive of restless leg syndrome
-Start Requip 0.25mg HS
-Consult PT/OT
CVA x 3 - s/p tPA and thrombectomy
Coronary Artery Disease s/p CABG
-Continue atorvastatin
Persistent Atrial Fibrillation
-Continue Pradaxa
-Continue Coreg
Chronic HFrEF
-Continue Lasix
-Monitor daily weight
Hypertension
- Continue Coreg
Hypothyroidism
-Continue levothyroxine
Chronic Iron Deficiency Anemia
-Continue iron supplement
Chronic Constipation
-Continue MiraLAX and Senna-S
Hx Complete Heart Block s/p Permanent Pacemaker
DVT proph: Pradaxa
Code Status: Full Code
--- NOTE | 2025-02-04 18:43 | W.PN.UPDATE ---
Update Note
Progress Note Update
This is an addendum to the H&P written by Lilian Plunkett on 02/04/2025.� Patient seen examined independently with PA.
84-year-old female past medical history of nephrolithiasis, paroxysmal atrial fibrillation on dabigatran, CAD status post CABG, chronic HFrEF, CVA, essential hypertension, hyperlipidemia, hypothyroidism, iron deficiency anemia, CVA, stercoral
colitis, anxiety/depression, presenting with generalized weakness and difficulty moving her legs and ambulating for weeks with shuffling gait.� Treated for UTI over the past week with resolution of urinary symptoms.� Complains of cramping in the
legs worse at night.� Also insomnia.� Patient with flat affect but denies depression.� Occasional shortness of breath.
Urinalysis not suggestive of infection.� CT head shows no acute abnormality.� Labs unremarkable.
Patient with ambulatory dysfunction unclear etiology suspect possible restless leg syndrome, Parkinson's unlikely given duration of symptoms.� Start ropinirole.� PT/OT.
[2025-02-04 19:09] LABS: TSH Reflex To Free T4 2.03 uIU/ml (0.47-4.68)
--- NOTE | 2025-02-04 22:35 | PTCARENOTE ---
Pt arrived onto floor @2235. Pt AAOx3 and a machine puller to the bed. Pt with no complaints of pain or SOB at this time. Pt oriented to room and call arambula; will continue to monitor
[2025-02-04] MEDS: REQUIP 0.25 MG PO (23:41)
[2025-02-04] MEDS: SENOKOT-S 2 TABLET PO (23:42)
[2025-02-04] MEDS: LIPITOR 40 MG PO (23:42)
[2025-02-04] MEDS: PRADAXA 150 MG PO (23:42)
[2025-02-05] MEDS: SYNTHROID 75 MCG PO (03:58)
[2025-02-05 06:00] VITALS: BMI 23.3
[2025-02-05 07:28] VITALS: BP 108/55
[2025-02-05] MEDS: VITAMIN B-12 1000 MCG PO (08:02)
[2025-02-05] MEDS: PRADAXA 150 MG PO (08:02)
[2025-02-05] MEDS: FEOSOL 325 MG PO (08:03)
[2025-02-05] MEDS: MIRALAX 8.5 GRAMS PO (08:03)
[2025-02-05] MEDS: LASIX 40 MG PO ×2 (08:03→15:27)
[2025-02-05 08:53] VITALS: BP 131/68; PULSE 70; O2SAT 97
[2025-02-05 08:57] VITALS: BP 131/68; PULSE 70; O2SAT 97
--- NOTE | 2025-02-05 13:01 | W.PN.HOSP.TC ---
Today's Communication/Plan
-
home health
Assessment / Plan
Assessment / Plan
General: Comfortable and Conversant
HEENT: Anicteric and Moist mucous membranes
Respiratory: Clear and Non Labored Respirations
Cardiac: S1/S2 and Irregular Rhythm; No Tachycardia
GI: Soft and Non Tender
Rectal: Deferred by Provider
Musculoskeletal: No Clubbing, No Cyanosis and No Edema
Skin: Warm and Dry
Neuro: Awake, Alert, Oriented, No Motor Deficits
Psych: calm
Generalized Weakness / Ambulatory Dysfunction
-Clinical history suggestive of restless leg syndrome
-Start Requip 0.25mg HS and trial of magnesium
-Consult PT/OT-home health
CVA x 3 - s/p tPA and thrombectomy
Coronary Artery Disease s/p CABG
-Continue atorvastatin
Persistent Atrial Fibrillation
-Continue Pradaxa
-Continue Coreg
Chronic HFrEF
-Continue Lasix
-Monitor daily weight
Hypertension
- Continue Coreg
Hypothyroidism
-Continue levothyroxine
Chronic Iron Deficiency Anemia
-Continue iron supplement
Chronic Constipation
-Continue MiraLAX and Senna-S
Hx Complete Heart Block s/p Permanent Pacemaker
DVT proph: Pradaxa
Code Status: Full Code
PT/OT-Home health.
More than 30 minutes spent in discharge including
Final examination of the patient
Summarizing hospital stay
Instructions for continuing care to all relevant caregivers
Preparation of discharge records, prescriptions, and referral forms
Total time spent (in minutes): 50
Anticipated Discharge: Today
Subjective/Interval History
-
Date of Service: February 05, 2025
worked with PT earlier today
states of cramps in leg at night time
Objective Data
-
Vital Signs:
Vital Signs
Temp Pulse Resp BP Pulse Ox
99.1 F 71 21 108/55 95
02/05/25 07:28 02/05/25 07:28 02/05/25 07:28 02/05/25 07:28 02/05/25 07:28
--- NOTE | 2025-02-05 13:08 | W.DCSUMMARY ---
Discharge Summary
Discharge Data
Date of Admission: 02/04/25
Date of Discharge: 02/05/25
-
Pending Results: No
Hospital Course
84-year-old female past medical history of nephrolithiasis, paroxysmal atrial fibrillation on dabigatran, CAD status post CABG, chronic HFrEF, CVA, essential hypertension, hyperlipidemia, hypothyroidism, iron deficiency anemia, CVA, stercoral
colitis, anxiety/depression, presenting with generalized weakness and difficulty moving her legs and ambulating for weeks with shuffling gait.� Treated for UTI over the past week with resolution of urinary symptoms.� Complains of cramping in the
legs worse at night.�Urinalysis not suggestive of infection.� CT head shows no acute abnormality.� Labs unremarkable. Started ropinirole.� Patient was eval by physical and Occupational Therapy with recommendation for home health [facility]. Recommend
outpatient follow-up with neurology.
Discharge Plan
-
Patient Disposition: Home with Home Care
Discharge Diagnosis/Procedures: Generalized weakness/ambulatory dysfunction with suspected restless leg syndrome
Condition: Fair
Diet: 2 Gram Sodium and Restrict fluids to 48 oz
Activity: With assistance and As tolerated
Driving Restrictions: As prior to admission
Other Services: VN
Referrals:
Sal Guerra MD [Active] - None (call to make appointment for restless leg syndrome)
Yanet Carmichael MD [Family Provider] - in less than 1 week
Prescriptions:
New
ropinirole 0.25 mg Tablet
0.25 mg PO HS Qty: 30 0RF
magnesium oxide 400 mg magnesium capsule
400 mg PO DAILY Qty: 14 0RF
Continued
atorvastatin 40 MG tablet
40 mg PO HS
carvedilol 3.125 MG tablet
3.125 mg PO BID
levothyroxine 75 mcg Tablet
75 mcg PO DAILY
furosemide 40 mg tablet
40 mg PO BID
cholecalciferol (vitamin D3) [Vitamin D3] 25 mcg (1,000 unit) Capsule
25 mcg PO DAILY
ferrous sulfate 325 mg (65 mg iron) Tablet
325 mg PO DAILY
dabigatran etexilate [Pradaxa] 150 mg capsule
150 mg PO BID
acetaminophen [Tylenol Extra Strength] 500 mg Tablet
1,000 mg PO Q6HPRN PRN (Reason: mild pain)
sennosides-docusate sodium 8.6-50 mg Tablet
2 tab PO HS Qty: 60 0RF
cyanocobalamin (vitamin B-12) 1,000 mcg Tablet
1,000 mcg PO DAILY Qty: 0 0RF
polyethylene glycol 3350 17 gram powder in packet
8.5 g PO DAILY
Discharge Orders:
Discharge Patient (As Directed); Ordered 02/05/25
Ordered By: Dewey Barksdale
Discharge Date and Time
Print Language: OCCITAN
--- NOTE | 2025-02-05 13:58 | CM ---
Patient was admitted under obs, [facility] letter provided to patient, signed and placed on chart. Patient lives with spouse in a 2 story home with stair glide to the 2nd floor, patient is independent with adl's and uses a walker with ambulation, patient
is for discharge to home today, plan is to home with visiting nurses, options reviewed and patient's spouse has selected [facility]. [facility] liaison contacted.
PCP: Yanet Carmichael
Pharmacy: [facility]
Plan; Home with spouse today and [facility].
--- NOTE | 2025-02-05 14:19 | VNURNOTE ---
Home Health Liaison spoke with patient's spouse Raulito to discuss [facility] nurse/therapy, visits, schedule and homebound status. He is agreeable and understands that visits at home will be 2-3 x per week to assess and teach medical management. Spouse
is aware that [facility] will contact them for start of care in 1-2 days after discharge from .
[facility] referral completed in [facility].
[2025-02-05 15:01] VITALS: BP 120/60
== END 2025-02-05 17:15 | disposition home health service (06) ==
LOC: 4 WEST ACU 18:48
PROVIDERS: Emergency Medicine; ADMITTING PHYSICIAN Hospitalist; ATTENDING PHYSICIAN Hospitalist; EMERGENCY PHYSICIAN Emergency Medicine; FAMILY PHYSICIAN Family Medicine
DX: R53.1 Weakness (principal); Z87.891 Personal history of nicotine dependence; I48.19 Other persistent atrial fibrillation; Z79.02 Long term (current) use of antithrombotics/antiplatelets; I11.0 Hypertensive heart disease with heart failure; I50.22 Chronic systolic (congestive) heart failure; E03.9 Hypothyroidism, unspecified; D50.9 Iron deficiency anemia, unspecified; K59.09 Other constipation
CPT/HCPCS: 70450; 80053; 81003; 81015; 84443; 85025; 87086; 97162; 97166; 99285; G0378

== ENCOUNTER 2025-06-16 10:24 | Emergency (ER) | payer MEDICARE, SELFPAY ==
[2025-06-16 10:26] VITALS: BP 121/72; BMI 21.6
[2025-06-16 10:29] VITALS: BP 121/72
--- NOTE | 2025-06-16 10:49 | ED.GENMED ---
History of Present Illness
General
Chief Complaint: Weakness
Source: patient
Time Seen by Provider: 06/16/25 10:42
History of Present Illness
History of Present Illness:
84-year-old female presents emergency room complaining of left-sided weakness. Patient states that she awoke from sleep feeling fine. She got up and did some things and ultimately ended up in 'the library'. She got up and attempted use the
bathroom before visiting her at [facility] when she noticed that her left leg was weak. No change in vision. No headache. Left arm was not affected. Patient denies any fever, chills, nausea or vomiting. Denies any dysuria or frequency.
Onset was about 9 AM
Past History
Past History
ED Past Medical History: Arrthythmia (Atrial fibrillation), CAD, CHF, CVA (2006, 2016, 2019), HTN, Hypercholesterolemia, NV, Hypothyroidism, Psychiatric (Depression), Other (Right kidney infarction, vitamin D deficiency, osteopenia, Hemorrhoids,
Colitis, Anemia, ) and Other (Vertigo, iron deficiency anemia); Negative NIDDM (Prediabetes)
ED Past Surgical History: Cardiac (Pacemaker, CABG), Gynecological ( Hysterectomy and Oophorectomy one side), Orthopedic (left hip fracture with repair) and Other (hernia repair)
Social History
Tobacco: Former smoker
Alcohol: Daily
Drug: None
Personal:
Living: with family
Employment: Retired
Family History
Family History: Other (Reviewed and Noncontributory)
Phy Exam
Physical Exam
Physical Exam:
General: Awake, Alert, Oriented X3. No acute distress. Appears stated age
Vitals: unremarkable
Head: Atraumatic
Eyes: Pupils equal, EOMI
Throat: Airway intact, no exudates
Neck: Trachea midline
Lungs: Clear and equal b/l
Heart: Regular rate, no murmurs
Abd: Soft, Nontender, No pulsatile mass
Neuro: Cranial nerves intact, muscle strength equal bilaterally, cerebellar exam normal
Skin: Warm, dry, no rash
Extremities: pulses equal b/l, no edema
Course
Orders/Labs/Results
Orders:
Orders
06/16/25 10:37
Complete Blood Count/With Diff Urgent
Comprehensive Metabolic Panel Urgent
06/16/25 10:44
Urinalysis Reflex To Culture Urgent
Date Specimen was Collected: 06/16/25
Time Specimen was Collected: 10:43
Urine Microscopic Reflex Cult Urgent
06/16/25 10:48
CT Head W/o Iv Contrast Urgent
Comment:
Reason For Exam: left sided weakness, resolved
06/16/25 10:52
Electrocardiogram (*1) Urgent
Reason for Study: TIA/Stroke
EKG- Treatment ONCE
Abnormal Lab Results
06/16/25 06/16/25
10:37 10:44
RBC 3.63 L 10^6/uL
(4.20-5.40)
Hgb 11.7 L g/dL
(12.0-16.0)
Hct 35.3 L %
(37.0-47.0)
MCH 32.2 H pg
(27.0-31.0)
Absolute Lymphs (auto) 0.5 L 10^3/uL
(1.2-3.4)
Absolute Monos (auto) 0.7 H 10^3/uL
(0.1-0.6)
Neutrophils % 80.4 H %
(42.2-75.2)
Lymphocytes % 7.2 L %
(20.5-51.1)
Monocytes % 10.5 H %
(1.7-9.3)
BUN 25 H mg/dl
(7-17)
Creatinine 1.2 H mg/dL
(0.6-1.0)
Glucose 145 H mg/dl
(70-99)
Total Bilirubin 1.4 H mg/dl
(0.2-1.3)
Alkaline Phosphatase 34 L U/L
(38-126)
Ur Occult Blood Reflex 1+ A
(Negative)
06/16/25 10:37
06/16/25 10:37
Vital Signs
Initial and Last Documented VS:
Initial Vital Signs
Pulse Resp BP Pulse Ox
81 12 121/72 97
06/16/25 10:26 06/16/25 10:26 06/16/25 10:26 06/16/25 10:26
Last Documented Vital Signs
Temp Pulse Resp BP Pulse Ox
98.8 F 71 19 123/70 98
06/16/25 10:32 06/16/25 12:45 06/16/25 12:45 06/16/25 12:00 06/16/25 12:45
MDM/Problems Addressed
Differential Diagnosis Includes:
TIA, CVA, recrudescence of previous CVA symptoms, electrolyte abnormality
MDM/Problems Addressed:
Patient presents with having an episode of left leg weakness at home. Her neurologic exam here shows strength and is equal with the right side. She ambulated here in the emergency room. Labs and imaging showed no acute abnormalities. Unclear why
the patient's left leg was weak earlier but there is no evidence for this now. She has had a history of several strokes in the past. She is on Pradaxa and therefore is on maximum therapy. Given she is at her baseline there is no indication for
hospitalization.
*Radiology
Radiology exam reviewed: radiology read reviewed
*Pulse Oximetry
SaO2: 97
Oxygen Mode of Delivery: Room air
Patient hypoxic: no
*Critical Care Note
Total Time (30-74mins, 75-104mins- exclusive of procedures): Not Applicable
ED Attending Note
-
Portions of this chart may have been created with voice recognition software.� Occasional wrong word or��sound alike� substitutions may have occurred due to the inherent limitations of voice recognition software.
Discharge Plan
Departure
Patient Disposition: Home (Routine Discharge)
Date of Disposition: 06/16/25
Time of Disposition: 13:04
Patient with high blood pressure during this ER visit?: No
Discharge Problem:
Left leg weakness
Instructions: Generalized Weakness (DC), Transient ischemic attack - ED (DC)
Prescriptions:
No Action
atorvastatin 40 MG tablet
40 mg PO HS
carvedilol 3.125 MG tablet
3.125 mg PO BID
levothyroxine 75 mcg Tablet
75 mcg PO DAILY
furosemide 40 mg tablet
40 mg PO BID
cholecalciferol (vitamin D3) [Vitamin D3] 25 mcg (1,000 unit) Capsule
25 mcg PO DAILY
ferrous sulfate 325 mg (65 mg iron) Tablet
325 mg PO DAILY
dabigatran etexilate [Pradaxa] 150 mg capsule
150 mg PO BID
acetaminophen [Tylenol Extra Strength] 500 mg Tablet
1,000 mg PO Q6HPRN PRN (Reason: mild pain)
sennosides-docusate sodium 8.6-50 mg Tablet
2 tab PO HS Qty: 60 0RF
cyanocobalamin (vitamin B-12) 1,000 mcg Tablet
1,000 mcg PO DAILY Qty: 0 0RF
polyethylene glycol 3350 17 gram powder in packet
8.5 g PO DAILY
ropinirole 0.25 mg Tablet
0.25 mg PO HS Qty: 30 0RF
magnesium oxide 400 mg magnesium capsule
400 mg PO DAILY Qty: 14 0RF
Referrals:
Yanet Carmichael MD [Family Provider, Family Practice]
Activity Restrictions/Additional Instructions:
Follow up with your primary care provider.
Interventions
Interventions:
*Risk Screen - Suicide Last Done: 06/16/25 10:26
*General Assessment Last Done: 06/16/25 10:26
*Neglect/Abuse Screening Last Done: 06/16/25 10:26
*ED- Fall Risk Assessment Last Done: 06/16/25 10:26
*ED COVID-19 Vaccine History Last Done: 06/16/25 10:26
*Nursing Disposition Last Done: 06/16/25 13:19
ED- Cardiac Assessment Last Done: 06/16/25 10:34
ED- Neurological Assessment Last Done: 06/16/25 10:31
ED- Pulmonary Assessment Last Done: 06/16/25 10:33
Discharge Date and Time
Discharge Date/Time: 06/16/25 13:20
Print Language: GABONESE
[2025-06-16 10:54] LABS: Hematocrit 35.3 % (37.0-47.0); Hemoglobin 11.7 g/dL (12.0-16.0); Mean Corp Hgb Conc. 33.1 g/dL (33.0-37.0); Mean Corpuscular Volume 97.2 fL (81.0-99.0); Nucleated Red Blood Cells % 0 %; Platelet Count 185 10^3/uL (130-400); Red Cell Dist. Width 13.8 % (11.5-14.5)
[2025-06-16 10:56] LABS: Urine Character Clear (Clear)
[2025-06-16 11:00] VITALS: BP 113/59
[2025-06-16 11:05] LABS: Urine Red Blood Cell 0-2 /HPF (0-2)
[2025-06-16 11:12] LABS: ALT (SGPT) 14 U/L (0-35); AST (SGOT) 21 U/L (14-36); Albumin 4.2 g/dl (3.5-5.0); Alkaline Phosphatase 34 U/L (38-126); Blood Urea Nitrogen 25 mg/dl (7-17); Calcium 9.4 mg/dl (8.4-10.2); Carbon Dioxide 27 mmol/L (22-30); Chloride 101 mmol/L (98-107); Estimated Creatinine Clearance 28 ml/min; Glucose 145 mg/dl (70-99); Potassium 4.1 mmol/L (3.5-5.1); Sodium 136 mmol/L (135-145); Total Protein 6.8 g/dl (6.3-8.2); eGFR 44.64
[2025-06-16 12:00] VITALS: BP 123/70
== END 2025-06-16 13:20 | disposition home or self-care (01) ==
LOC: EMR 10:24
PROVIDERS: EMERGENCY PHYSICIAN Emergency Medicine; FAMILY PHYSICIAN Family Medicine
DX: R53.1 Weakness (principal); I25.810 Atherosclerosis of coronary artery bypass graft(s) without angina pectoris; I48.91 Unspecified atrial fibrillation; I11.0 Hypertensive heart disease with heart failure; I50.9 Heart failure, unspecified; E78.00 Pure hypercholesterolemia, unspecified; I25.2 Old myocardial infarction; E03.9 Hypothyroidism, unspecified; F32.A Depression, unspecified; M85.80 Other specified disorders of bone density and structure, unspecified site; Z79.01 Long term (current) use of anticoagulants; Z86.73 Personal history of transient ischemic attack (TIA), and cerebral infarction without residual deficits; Z95.1 Presence of aortocoronary bypass graft; Z95.0 Presence of cardiac pacemaker; Z87.891 Personal history of nicotine dependence
CPT/HCPCS: 99284; 70450; 80053; 81003; 81015; 85025; 93005

== ENCOUNTER → 2025-07-19 08:14 | Outpatient (REF) | payer MEDICARE, SELFPAY | LOC: RCS 08:14 | PROVIDERS: ATTENDING PHYSICIAN Internal Medicine Cardiovascular Disease; FAMILY PHYSICIAN Family Medicine | DX: I50.20 Unspecified systolic (congestive) heart failure (principal); I31.39 Other pericardial effusion (noninflammatory) | CPT/HCPCS: 93306 ==